=== PATIENT | male | born 1950 | race Caucasian/White ===

== ENCOUNTER 2017-07-20 08:39 | Inpatient (IN) | payer MEDICARE, OTHER ==
[~2017-07-20] VITALS: Ht 182.9 cm; Wt 80.4 kg
[2017-07-20] MEDS: ACCU-CHEK COMFORT CURVE STRIP VI SCH ×5 (00:15→21:00)
[~2017-07-20 08:39] MED LIST: BUPR150T6 PO; CLOP75TA28 PO; DIVA250T51 PO; FAM20T PO; FENO160T8 PO; LOSA50TA6 PO; METO-158 PO; MIRT30TA PO; QUET100T46 PO
[2017-07-20 10:43] LABS: Eosinophils # (auto) 0 uL; Hemoglobin 15.7 g/dL (13.5-17.5); Lymphocytes # (auto) 1.7 uL; Neutrophils % (auto) 80.6 % (37.0-80.0); Nucleated Red Blood Cells % 0.1 %
[2017-07-20 10:55] LABS: Basophils # (auto) 0.1 uL; Basophils % (auto) 0.5 % (0.0-2.0); Eosinophils % (auto) 0.2 % (0.0-7.0); Hematocrit 50.1 % (41.0-53.0); Lymphocytes % (auto) 12.1 % (10.0-50.0); Mean Corpuscular Hemoglobin 28.3 pg (28.0-32.0); Mean Corpuscular Hgb Conc. 31.4 g/dL (32.0-36.0); Mean Corpuscular Volume 90.1 fL (80.0-100.0); Mean Platelet Volume 8.2 fL (6.9-10.8); Monocytes % (auto) 6.6 % (0.0-12.0); Neutrophils # (auto) 11.6 uL; Platelet Count (auto) 364 10^3/uL (140-450); Red Cell Distribution Width 15.5 % (11.8-14.3); White Blood Cell 14.4 10^3/uL (4.4-10.8)
[2017-07-20] MEDS ORDERED: SODIUM CHLORIDE 0.9% 1,000 ML IVB ONE (11:00)
[2017-07-20 11:06] LABS: BUN/Creatinine Ratio 21.7; Bilirubin, Total 0.7 mg/dL (0.2-1.0); Calcium 9.7 mg/dL (8.5-10.1); Magnesium 2.3 mg/dL (1.6-2.6); Potassium 5.5 mmol/L (3.5-5.1); Total Protein 7.6 g/dL (6.4-8.2)
[2017-07-20 11:25] LABS: INR 1.05 (0.9-1.15); Partial Thromboplastin Time 25.2 sec (22.64-33.71); Prothrombin Time 11.4 sec (9.37-12.3)
[2017-07-20] MEDS ORDERED: PROMETHAZINE HCL 25 MG/ML 1ML IV ONE ×2 (12:45→15:15)
[2017-07-20] MEDS ORDERED: InsuLIN REG 1unit/0.01ml Soln (100units/ml) IV ONE (14:45)
[2017-07-20] MEDS ORDERED: PROMETHAZINE HCL 25 MG/ML 1ML ONE (14:45)
[2017-07-20] MEDS ORDERED: DILTIAZEM HCL 25 MG/5 ML VIAL IV ONE (15:15)
[2017-07-20] MEDS ORDERED: SODIUM CHLORIDE 0.9% 1,000 ML IV ONE (15:30)
[2017-07-20] MEDS ORDERED: SODIUM BICARBONATE 8.4% INJ 50ML SYRINGE ONE (15:45)
[2017-07-20] MEDS ORDERED: InsuLIN REG 1unit/0.01ml Soln (100units/ml) ONE (15:50)
[2017-07-20] MEDS: InsuLIN R (HUMAN) 100 UNITS in SODIUM CHL 0.9% 99 ML IV SCH ×3 (15:56→22:03)
[2017-07-20] MEDS ORDERED: VANCOMYCIN PER PHARMACY 0 MG IV SCH (16:00)
[2017-07-20] MEDS ORDERED: cefTRIAXone 1GM/50ML D5W 50 ML IV ONE ×2 (16:00→17:14)
[2017-07-20] MEDS: AMIODARONE HCL 150 MG in D5W 5% 100 ML IV ONE ×2 (16:00→16:21)
[2017-07-20] MEDS ORDERED: SODIUM BICARBONATE 8.4 % INJ 50ML VIAL IV ONE (16:00)
[2017-07-20] MEDS ORDERED: DEXTROSE (50%) 50ML SYRG IV PRN (16:00)
[2017-07-20] MEDS: AMIODARONE HCL 900 MG in DEXTROSE 500 ML IV SCH ×2 (16:06→20:00)
[2017-07-20] MEDS ORDERED: LORazepam 0.5 MG TAB PO PRN (16:15)
[2017-07-20] MEDS ORDERED: ONDANSETRON HCL 4 MG/2 ML VIAL IV PRN (16:15)
[2017-07-20] MEDS ORDERED: ACETAMINOPHEN 325 MG TAB PO PRN (16:15)
[2017-07-20] MEDS ORDERED: ALUM & MAG HYDROX-SIMETH LIQ(MAALOX) 30 ML PO ONE (16:15)
[2017-07-20] MEDS ORDERED: NITROGLYCERIN 0.4 MG SL TAB SL PRN ×2 (16:15)
[2017-07-20] MEDS ORDERED: MORPHINE SULFATE 10 MG/ML INJ 1ML SDV IV PRN ×2 (16:15)
[2017-07-20] MEDS ORDERED: ZOLPIDEM TARTRATE 5 MG TAB PO PRN (16:15)
[2017-07-20] MEDS: SODIUM CHLORIDE 0.9% 1,000 ML IV SCH ×3 (16:20→22:18)
[2017-07-20] MEDS ORDERED: DOCUSATE SOD 100 MG CAP PO ONE (16:45)
[2017-07-20] MEDS ORDERED: METOPROLOL TARTRATE 50 MG TAB PO ONE (16:45)
[2017-07-20] MEDS ORDERED: LOSARTAN POTASSIUM 50 MG TAB PO ONE (16:45)
[2017-07-20] MEDS ORDERED: MIRTAZAPINE 30 MG TAB PO ONE (16:45)
[2017-07-20] MEDS ORDERED: QUEtiapine FUMARATE 100 MG TAB PO ONE (16:45)
[2017-07-20] MEDS ORDERED: ASPirin-EC 81 mg tab PO ONE (16:45)
[2017-07-20 16:49] LABS: Urine Bilirubin Negative (Negative); Urine Blood Negative /uL (Negative); Urine Color Yellow (Yellow); Urine Glucose 4+ mg/dL (Normal); Urine Hyaline Cast FEW /lpf (0 - 2); Urine Ketone 3+ (Negative); Urine Nitrite Negative (Negative); Urine RBC <1 /hpf (0 - 3); Urine Squamous Epithelial Cell FEW /hpf (<5); Urine Urobilinogen Normal (Negative)
[2017-07-20 16:58] LABS: Allen Test No; Base Excess -14.1 mmol/L (-2.0-2.0); Blood 02Sat 95.6 % (96-100); Blood COHb 0.5 % (0.5-1.5); Blood MetHb 0.2 % (0.0-1.5); HCO3 10.4 mmol/L (22-26.0); HHb 4.4 % (0.0-5.0); MODE ROOM AIR; O2Hb 94.9 % (94.0-97.0); PCO2 22.8 mmHg (35.0-45.0); PCO2(T) 22.8 mmHg (35.0-45.0); PO2 88.6 mmHg (80.0-100.0); PO2(T) 88.6 mmHg (80.0-100.0); Sample Type Arterial; pH 7.279 (7.350-7.450)
[2017-07-20] MEDS ORDERED: VANCOMYCIN 1,500 MG in D5W 5% 250 ML IV ONE (17:00)
[2017-07-20 17:29] LABS: Lactic Acid w/Reflex 4.2 mmol/L (0.4-2.0)
[2017-07-20 17:57] LABS: REFLEX LACTIC ACID YES OR NO NO
[2017-07-20] MEDS ORDERED: AMIODARONE HCL 150 MG in D5W 5% 100 ML IV ONE (19:00)
[2017-07-20] MEDS ORDERED: SODIUM CHLORIDE 0.9% 1,000 ML IV SCH (19:56)
[2017-07-20 19:59] LABS: BUN/Creatinine Ratio 22.1; Calcium 8.9 mg/dL (8.5-10.1); Potassium 4.6 mmol/L (3.5-5.1)
[2017-07-20 20:28] LABS: Lactic Acid w/Reflex 2.5 mmol/L (0.4-2.0)
[2017-07-20] MEDS: buPROPion HCL 75 MG TAB PO SCH (20:45)
[2017-07-20 21:02] LABS: REFLEX LACTIC ACID YES OR NO NO
[2017-07-20] MEDS ORDERED: ATORVASTATIN 20 MG TAB PO SCH (22:00)
[2017-07-20] MEDS ORDERED: AMIODARONE HCL 900 MG in DEXTROSE 500 ML IV SCH (22:06)
[2017-07-20] MEDS: ATORVASTATIN 20 MG TAB PO SCH (22:17)
[2017-07-20] MEDS: METOPROLOL TARTRATE 50 MG TAB PO SCH (22:17)
[2017-07-20] MEDS: VALPROATE SOD 250 MG/5 ML ORAL SOLN PO SCH (22:17)
[2017-07-20] MEDS: MIRTAZAPINE 30 MG TAB PO SCH (22:18)
[2017-07-20] MEDS: QUEtiapine FUMARATE 100 MG TAB PO SCH (22:18)
[2017-07-21] MEDS: InsuLIN R (HUMAN) 100 UNITS in SODIUM CHL 0.9% 99 ML IV SCH ×2 (00:23→03:35)
[2017-07-21] MEDS: ACCU-CHEK COMFORT CURVE STRIP VI SCH ×11 (00:29→22:17)
[2017-07-21 04:47] LABS: Basophils # (auto) 0.2 uL; Basophils % (auto) 1.2 % (0.0-2.0); Eosinophils # (auto) 0.1 uL; Eosinophils % (auto) 0.5 % (0.0-7.0); Hematocrit 36.8 % (41.0-53.0); Lymphocytes # (auto) 2.9 uL; Mean Corpuscular Hgb Conc. 32.6 g/dL (32.0-36.0); Mean Corpuscular Volume 85.9 fL (80.0-100.0); Mean Platelet Volume 7.6 fL (6.9-10.8); Monocytes # (auto) 1.7 uL; Neutrophils # (auto) 12.3 uL; Neutrophils % (auto) 71.3 % (37.0-80.0); Platelet Count (auto) 236 10^3/uL (140-450); Red Cell Distribution Width 14.6 % (11.8-14.3); White Blood Cell 17.3 10^3/uL (4.4-10.8)
[2017-07-21] MEDS: SODIUM CHLORIDE 0.9% 1,000 ML IV SCH ×3 (04:54→18:04)
[2017-07-21 05:22] LABS: Albumin 3.1 g/dL (3.4-5.0); Bilirubin, Total 0.4 mg/dL (0.2-1.0); Calcium 8.3 mg/dL (8.5-10.1); Magnesium 2.1 mg/dL (1.6-2.6); Potassium 4.1 mmol/L (3.5-5.1); Total Protein 5.9 g/dL (6.4-8.2)
[2017-07-21] MEDS: QUEtiapine FUMARATE 100 MG TAB PO SCH ×3 (06:00→21:18)
[2017-07-21] MEDS: buPROPion HCL 75 MG TAB PO SCH ×2 (08:10→19:00)
[2017-07-21] MEDS: DOCUSATE SOD 100 MG CAP PO SCH (09:00)
[2017-07-21] MEDS: LOSARTAN POTASSIUM 50 MG TAB PO SCH (09:00)
[2017-07-21] MEDS: VALPROATE SOD 250 MG/5 ML ORAL SOLN PO SCH ×2 (09:00→21:17)
[2017-07-21] MEDS: FENOFIBRATE 160 MG PO SCH (09:01)
[2017-07-21] MEDS: cefTRIAXone 1GM/50ML D5W 50 ML IV SCH (09:07)
[2017-07-21] MEDS: METOPROLOL TARTRATE 50 MG TAB PO SCH ×2 (09:56→21:17)
[2017-07-21] MEDS: CLOPIDOGREL BISULFATE 75 MG TAB PO SCH (09:56)
[2017-07-21] MEDS: MIRTAZAPINE 30 MG TAB PO SCH ×2 (09:56→21:18)
[2017-07-21] MEDS ORDERED: ASPirin-EC 81 mg tab PO SCH (10:00)
[2017-07-21] MEDS ORDERED: CLOPIDOGREL BISULFATE 75 MG TAB PO SCH (10:00)
[2017-07-21] MEDS ORDERED: PATIENTS OWN MEDICATION PO SCH ×2 (10:00)
[2017-07-21] MEDS ORDERED: ASPirin 81 mg TAB PO SCH (10:00)
[2017-07-21] MEDS ORDERED: INSULIN DETEMIR(LEVEMIR) 1unit/0.01ml Soln (100units/ml) SC ONE (11:15)
[2017-07-21 11:20] LABS: Calcium 8.2 mg/dL (8.5-10.1); Potassium 3.9 mmol/L (3.5-5.1)
[2017-07-21] MEDS ORDERED: InsuLIN REG 1unit/0.01ml Soln (100units/ml) SC ONE (11:30)
[2017-07-21] MEDS ORDERED: ACCU-CHEK COMFORT CURVE STRIP VI ONE (11:30)
[2017-07-21] MEDS: InsuLIN REG 1unit/0.01ml Soln (100units/ml) SC SCH ×3 (11:30→22:17)
[2017-07-21] MEDS ORDERED: ENOXAPARIN SOD 80 MG/0.8ML SYRINGE SC ONE (12:15)
[2017-07-21] MEDS ORDERED: ASPirin 81 mg TAB PO ONE (12:30)
[2017-07-21] MEDS ORDERED: CLOPIDOGREL BISULFATE 75 MG TAB PO ONE (12:30)
[2017-07-21] MEDS: Boost Glucose Control 8 Ounces PO SCH ×2 (13:00→18:19)
[2017-07-21] MEDS: ATORVASTATIN 20 MG TAB PO SCH (21:17)
[2017-07-21] MEDS: INSULIN DETEMIR(LEVEMIR) 1unit/0.01ml Soln (100units/ml) SC SCH (22:17)
[2017-07-22] VITALS (10 sets, daily range): BP systolic 144–178; BP diastolic 70–93
[2017-07-22] MEDS: SODIUM CHLORIDE 0.9% 1,000 ML IV SCH ×2 (00:36→06:55)
[2017-07-22] MEDS: buPROPion HCL 75 MG TAB PO SCH ×2 (06:32→18:02)
[2017-07-22] MEDS: QUEtiapine FUMARATE 100 MG TAB PO SCH ×3 (06:32→21:37)
[2017-07-22] MEDS: ACCU-CHEK COMFORT CURVE STRIP VI SCH ×4 (06:52→22:00)
[2017-07-22] MEDS: InsuLIN REG 1unit/0.01ml Soln (100units/ml) SC SCH ×3 (06:53→22:00)
[2017-07-22] MEDS ORDERED: IOHEXOL 350 MG/ML 100ML IJ ONE (07:27)
[2017-07-22] MEDS: Boost Glucose Control 8 Ounces PO SCH ×3 (08:00→17:42)
[2017-07-22 08:02] LABS: Basophils # (auto) 0 uL; Basophils % (auto) 0.6 % (0.0-2.0); Eosinophils # (auto) 0.2 uL; Eosinophils % (auto) 2.5 % (0.0-7.0); Hemoglobin 12.1 g/dL (13.5-17.5); Lymphocytes # (auto) 1.5 uL; Mean Corpuscular Hemoglobin 29.1 pg (28.0-32.0); Mean Corpuscular Hgb Conc. 33.7 g/dL (32.0-36.0); Mean Corpuscular Volume 86.3 fL (80.0-100.0); Mean Platelet Volume 7.6 fL (6.9-10.8); Monocytes # (auto) 0.7 uL; Monocytes % (auto) 8.3 % (0.0-12.0); Neutrophils # (auto) 5.8 uL; Neutrophils % (auto) 70.6 % (37.0-80.0); Nucleated Red Blood Cells % 0.1 %; Platelet Count (auto) 177 10^3/uL (140-450); Red Cell Distribution Width 14.9 % (11.8-14.3); White Blood Cell 8.2 10^3/uL (4.4-10.8)
[2017-07-22] MEDS ORDERED: LIDOCAINE 2%HCL (LOCAL ANESTH.) INJ 20ML MDV ONE (08:06)
[2017-07-22 08:21] LABS: Albumin 2.7 g/dL (3.4-5.0); BUN/Creatinine Ratio 22.6; Bilirubin, Total 0.3 mg/dL (0.2-1.0); Calcium 8.2 mg/dL (8.5-10.1); Total Protein 5.6 g/dL (6.4-8.2)
[2017-07-22] MEDS ORDERED: ANGIOMAX 250 MG VIAL IV ONE (08:30)
[2017-07-22] MEDS ORDERED: fentaNYL CITRATE 100 MCG/2 ML VL ONE (08:30)
[2017-07-22] MEDS ORDERED: SODIUM CHL 0.9% 50 ML ONE (08:31)
[2017-07-22] MEDS ORDERED: MIDAZOLAM HCL 1MG/1ML-2 ML VIAL ONE (08:31)
[2017-07-22] MEDS ORDERED: NITROGLYCERIN 5MG/ML 10ML VIAL IV ONE (08:36)
[2017-07-22] MEDS: cefTRIAXone 1GM/50ML D5W 50 ML IV SCH (08:42)
[2017-07-22] MEDS ORDERED: ASPirin 325 MG TAB ONE (09:37)
[2017-07-22] MEDS ORDERED: ASPirin 325 MG TAB PO ONE (09:45)
[2017-07-22] MEDS: DOCUSATE SOD 100 MG CAP PO SCH (10:00)
[2017-07-22] MEDS ORDERED: ASPirin 81 mg TAB PO SCH (10:00)
[2017-07-22] MEDS: FENOFIBRATE 160 MG PO SCH (10:00)
[2017-07-22] MEDS: VALPROATE SOD 250 MG/5 ML ORAL SOLN PO SCH ×2 (10:54→21:37)
[2017-07-22] MEDS: METOPROLOL TARTRATE 50 MG TAB PO SCH ×2 (10:54→21:36)
[2017-07-22] MEDS: LOSARTAN POTASSIUM 50 MG TAB PO SCH (10:54)
[2017-07-22] MEDS: CLOPIDOGREL BISULFATE 75 MG TAB PO SCH (10:55)
[2017-07-22] MEDS: MIRTAZAPINE 30 MG TAB PO SCH ×2 (10:55→21:37)
[2017-07-22] MEDS ORDERED: SODIUM CHLORIDE 0.9% 1,000 ML IV SCH (11:54)
[2017-07-22] MEDS ORDERED: DEXTROSE (50%) 50ML SYRG IV PRN (12:00)
[2017-07-22] MEDS: ATORVASTATIN 20 MG TAB PO SCH (21:36)
[2017-07-22] MEDS: INSULIN DETEMIR(LEVEMIR) 1unit/0.01ml Soln (100units/ml) SC SCH (22:00)
== END 2017-07-22 23:38 | disposition short-term general hospital (02) | DRG 853 ==
LOC: EDBD 08:39 → ER 08:39 → OVERFLOW 08:40 → TELE-CENTR 07-22 04:15
PROVIDERS: ADMIT Internal Medicine; ATTEND Internal Medicine
PROC: 02703ZZ Dilation of Coronary Artery, One Artery, Percutaneous Approach (ICD-10-PCS; principal; 2017-07-22)
PROC: 4A023N7 Measurement of Cardiac Sampling and Pressure, Left Heart, Percutaneous Approach (ICD-10-PCS; 2017-07-22)
PROC: B2111ZZ Fluoroscopy of Multiple Coronary Arteries using Low Osmolar Contrast (ICD-10-PCS; 2017-07-22)
DX: A41.9 Sepsis, unspecified organism (principal); I21.4 Non-ST elevation (NSTEMI) myocardial infarction; N17.0 Acute kidney failure with tubular necrosis; E10.10 Type 1 diabetes mellitus with ketoacidosis without coma; E44.0 Moderate protein-calorie malnutrition; E10.21 Type 1 diabetes mellitus with diabetic nephropathy; I48.91 Unspecified atrial fibrillation; G92 Toxic encephalopathy; I48.92 Unspecified atrial flutter; E87.5 Hyperkalemia; N18.3 Chronic kidney disease, stage 3 (moderate); F31.9 Bipolar disorder, unspecified; I12.9 Hypertensive chronic kidney disease with stage 1 through stage 4 chronic kidney disease, or unspecified chronic kidney disease; M19.90 Unspecified osteoarthritis, unspecified site; E10.22 Type 1 diabetes mellitus with diabetic chronic kidney disease; E88.09 Other disorders of plasma-protein metabolism, not elsewhere classified; J44.9 Chronic obstructive pulmonary disease, unspecified; I25.10 Atherosclerotic heart disease of native coronary artery without angina pectoris; E78.5 Hyperlipidemia, unspecified; K21.9 Gastro-esophageal reflux disease without esophagitis; Z88.1 Allergy status to other antibiotic agents; Z88.8 Allergy status to other drugs, medicaments and biological substances; Z79.02 Long term (current) use of antithrombotics/antiplatelets; Z79.899 Other long term (current) drug therapy; I25.2 Old myocardial infarction; Z90.49 Acquired absence of other specified parts of digestive tract; Z95.5 Presence of coronary angioplasty implant and graft; Z68.24 Body mass index [BMI] 24.0-24.9, adult
CPT/HCPCS: 36415; 36600; 51702; 70450; 71020; 80048; 80053; 80061; 80307; 81001; 82010; 82805; 82962; 83036; 83605; 83735; 83930; 84100; 84443; 84484; 85025; 85610; 85730; 86850; 86900; 86901; 87040; 87086; 92920; 92924; 93005; 93458; 94761; 96361; 96365; 96366; 96372; 96375; 96376; 99152; 99153; C1887; G0378; J0696; J1815; J2250; J3490; J7060

== ENCOUNTER 2018-03-20 09:00 | Emergency (ER) | payer MEDICARE, OTHER ==
[~2018-03-20] VITALS: Ht 180.3 cm; Wt 88.5 kg
[2018-03-20 09:32] LABS: Basophils # (auto) 0.1 uL; Basophils % (auto) 1.1 % (0.0-2.0); Eosinophils # (auto) 0.3 uL; Eosinophils % (auto) 3.7 % (0.0-7.0); Hematocrit 37.9 % (41.0-53.0); Hemoglobin 12.4 g/dL (13.5-17.5); Lymphocytes # (auto) 1.1 uL; Lymphocytes % (auto) 15.4 % (10.0-50.0); Mean Corpuscular Hemoglobin 27.5 pg (28.0-32.0); Mean Corpuscular Hgb Conc. 32.6 g/dL (32.0-36.0); Mean Corpuscular Volume 84.3 fL (80.0-100.0); Monocytes # (auto) 0.6 uL; Monocytes % (auto) 7.9 % (0.0-12.0); Neutrophils % (auto) 71.9 % (37.0-80.0); Nucleated Red Blood Cells % 0.1 %; Platelet Count (auto) 213 10^3/uL (140-450); Red Cell Distribution Width 16.6 % (11.8-14.3)
[2018-03-20 09:53] LABS: Alanine Aminotransferase 18 U/L (16-61); Albumin 3.1 g/dL (3.4-5.0); Anion Gap 8 (5-15); Aspartate Aminotransferase 22 U/L (15-37); BUN/Creatinine Ratio 17.9; Blood Urea Nitrogen 24 mg/dL (7-18); Calcium 8.1 mg/dL (8.5-10.1); Carbon Dioxide 23 mmol/L (21-32); Chloride 112 mmol/L (98-107); GFR African American 68 mL/min; GFR Non-African American 56 mL/min; Glucose 195 mg/dL (74-106); Potassium 3.9 mmol/L (3.5-5.1); Sodium 143 mmol/L (136-145)
[2018-03-20 10:16] LABS: Alkaline Phosphatase 49 U/L (45-117); Bilirubin, Total 0.2 mg/dL (0.2-1.0); Total Protein 6.3 g/dL (6.4-8.2)
[2018-03-20 10:18] VITALS: BP 148/77
== END 2018-03-20 11:28 | disposition home or self-care (01) ==
LOC: EDBD 09:00 → ER 09:04
DX: E11.9 Type 2 diabetes mellitus without complications (principal); I10 Essential (primary) hypertension; Z79.899 Other long term (current) drug therapy; Z88.8 Allergy status to other drugs, medicaments and biological substances; J45.909 Unspecified asthma, uncomplicated; I25.810 Atherosclerosis of coronary artery bypass graft(s) without angina pectoris; E78.5 Hyperlipidemia, unspecified; Z90.49 Acquired absence of other specified parts of digestive tract; Z98.61 Coronary angioplasty status
CPT/HCPCS: 36415; 80053; 85025; 93005

== ENCOUNTER 2020-01-26 23:20 | Emergency (ER) | payer MEDICARE, OTHER ==
[~2020-01-26] VITALS: Ht 180.3 cm; Wt 77.1 kg
[~2020-01-26 23:20] MED LIST changes: +LOSA-69 PO; -LOSA50TA6 PO
[2020-01-27 00:49] LABS: Basophils # (auto) 0.1 10 ^3/uL (0-0.2); Basophils % (auto) 1.2 % (0.0-2.0); Eosinophils # (auto) 0.2 10 ^3/uL (0-0.8); Hematocrit 43.7 % (41.0-53.0); Hemoglobin 14.2 g/dL (13.5-17.5); Lymphocytes # (auto) 1.1 10 ^3/uL (0.4-5.4); Lymphocytes % (auto) 14.7 % (10.0-50.0); Mean Corpuscular Hemoglobin 28.2 pg (28.0-32.0); Mean Corpuscular Hgb Conc. 32.4 g/dL (32.0-36.0); Mean Corpuscular Volume 86.9 fL (80.0-100.0); Monocytes # (auto) 0.7 10 ^3/uL (0-1.3); Monocytes % (auto) 9.3 % (0.0-12.0); Neutrophils # (auto) 5.2 10 ^3/uL (1.6-8.6); Neutrophils % (auto) 71.8 % (37.0-80.0); Nucleated Red Blood Cells % 0.1 %; Platelet Count (auto) 250 10^3/uL (140-450); Red Blood Cells 5.02 10^6/uL (4.5-5.90); White Blood Cell 7.2 10^3/uL (4.4-10.8)
[2020-01-27 01:06] LABS: Albumin 3.5 g/dL (3.4-5.0); BUN/Creatinine Ratio 15.8; Calcium 8.7 mg/dL (8.5-10.1); Potassium 3.8 mmol/L (3.5-5.1)
[2020-01-27 01:09] LABS: Bilirubin, Total 0.3 mg/dL (0.2-1.0); Total Protein 6.9 g/dL (6.4-8.2)
[2020-01-27 02:00] VITALS: BP 141/65
== END 2020-01-27 02:59 | disposition home or self-care (01) ==
LOC: EDSEX 23:20 → EDBD 23:20 → ER 23:23
DX: E11.65 Type 2 diabetes mellitus with hyperglycemia (principal); I10 Essential (primary) hypertension; J45.909 Unspecified asthma, uncomplicated; E78.5 Hyperlipidemia, unspecified; Z79.899 Other long term (current) drug therapy; Z88.2 Allergy status to sulfonamides
CPT/HCPCS: 36415; 80053; 82962; 85025

== ENCOUNTER 2020-12-12 19:00 | Emergency (ER) | payer MEDICARE, OTHER ==
[~2020-12-12] VITALS: Ht 175.3 cm; Wt 68.9 kg
[~2020-12-12 19:00] MED LIST changes: -BUPR150T6 PO; +BUPR150T7 PO; +DIVA250T4 PO; -DIVA250T51 PO; -FAM20T PO; +FAMO20TA10 PO; +MIRT-66 PO; -MIRT30TA PO
[2020-12-12] MEDS ORDERED: ONDANSETRON ODT 4 MG TAB PO ONE (19:15)
[2020-12-12] MEDS ORDERED: HYDROcodone-ACET 5/325MG TAB PO ONE (19:15)
[2020-12-12 20:14] LABS: Basophils # (auto) 0 10 ^3/uL (0-0.2); Basophils % (auto) 0.6 % (0.0-2.0); Eosinophils # (auto) 0.2 10 ^3/uL (0-0.8); Eosinophils % (auto) 3.1 % (0.0-7.0); Hematocrit 42.1 % (41.0-53.0); Hemoglobin 14.3 g/dL (13.5-17.5); Lymphocytes # (auto) 1.1 10 ^3/uL (0.4-5.4); Mean Corpuscular Hemoglobin 28.9 pg (28.0-32.0); Mean Corpuscular Hgb Conc. 33.9 g/dL (32.0-36.0); Mean Corpuscular Volume 85.3 fL (80.0-100.0); Monocytes # (auto) 0.5 10 ^3/uL (0-1.3); Monocytes % (auto) 6.9 % (0.0-12.0); Neutrophils # (auto) 5.5 10 ^3/uL (1.6-8.6); Neutrophils % (auto) 74.4 % (37.0-80.0); Nucleated Red Blood Cells % 0.2 %; Platelet Count (auto) 273 10^3/uL (140-450); Red Blood Cells 4.94 10^6/uL (4.5-5.90); Red Cell Distribution Width 14.1 % (11.8-14.3); White Blood Cell 7.4 10^3/uL (4.4-10.8)
[2020-12-12 20:38] LABS: Albumin 3.8 g/dL (3.4-5.0); Calcium 9.5 mg/dL (8.5-10.1); Potassium 4.1 mmol/L (3.5-5.1)
[2020-12-12 20:41] LABS: Bilirubin, Total 0.4 mg/dL (0.2-1.0); INR 1.14 (0.9-1.15); Partial Thromboplastin Time 36.5 sec (23.0-31.2); Total Protein 7.4 g/dL (6.4-8.2)
[2020-12-13 00:59] VITALS: BP 146/97
== END 2020-12-13 01:23 | disposition home or self-care (01) ==
LOC: ER 19:00 → EDBD 19:00 → ER 12-13 01:23
DX: S76.911A Strain of unspecified muscles, fascia and tendons at thigh level, right thigh, initial encounter (principal); E11.9 Type 2 diabetes mellitus without complications; I10 Essential (primary) hypertension; E78.5 Hyperlipidemia, unspecified; Z90.49 Acquired absence of other specified parts of digestive tract; Z79.899 Other long term (current) drug therapy; Z88.2 Allergy status to sulfonamides; X58.XXXA Exposure to other specified factors, initial encounter; Y93.89 Activity, other specified; Y92.89 Other specified places as the place of occurrence of the external cause; Y99.8 Other external cause status
CPT/HCPCS: 36415; 73502; 73700; 80053; 82010; 85025; 85610; 85730; 99285; Q0162

== ENCOUNTER 2021-12-16 20:47 | Emergency (ER) | payer MEDICARE, OTHER ==
[~2021-12-16] VITALS: Ht 180.3 cm; Wt 65.8 kg
[~2021-12-16 20:47] MED LIST changes: +BUPR150T18 PO; -BUPR150T7 PO; -QUET100T46 PO; +QUET100T47 PO
[2021-12-16] MEDS ORDERED: ONDANSETRON HCL 4 MG/2 ML VIAL IV ONE (21:15)
[2021-12-16] MEDS ORDERED: MORPHINE SULFATE 4 MG/ML SYR/VIAL IV ONE (21:15)
[2021-12-16 22:50] LABS: Basophils # (auto) 0.1 10 ^3/uL (0-0.2); Basophils % (auto) 1.2 % (0.0-2.0); Eosinophils # (auto) 0 10 ^3/uL (0-0.8); Eosinophils % (auto) 0.8 % (0.0-7.0); Hematocrit 39.7 % (41.0-53.0); Hemoglobin 13.3 g/dL (13.5-17.5); Lymphocytes # (auto) 0.6 10 ^3/uL (0.4-5.4); Lymphocytes % (auto) 10.4 % (10.0-50.0); Mean Corpuscular Hemoglobin 28.7 pg (28.0-32.0); Mean Corpuscular Hgb Conc. 33.6 g/dL (32.0-36.0); Mean Corpuscular Volume 85.3 fL (80.0-100.0); Monocytes # (auto) 0.3 10 ^3/uL (0-1.3); Monocytes % (auto) 5.1 % (0.0-12.0); Neutrophils % (auto) 82.5 % (37.0-80.0); Nucleated Red Blood Cells % 0.1 %; Red Blood Cells 4.65 10^6/uL (4.5-5.90); Red Cell Distribution Width 14.9 % (11.8-14.3); White Blood Cell 6.1 10^3/uL (4.4-10.8)
[2021-12-16 23:42] LABS: Calcium 9.7 mg/dL (8.5-10.1); Potassium 4.3 mmol/L (3.5-5.1)
[2021-12-16 23:44] LABS: BUN/Creatinine Ratio 13.8
[2021-12-16 23:49] LABS: Bilirubin, Total 0.7 mg/dL (0.2-1.0); Total Protein 7.6 g/dL (6.4-8.2)
[2021-12-17 01:54] LABS: Urine WBC None Seen /hpf (0 - 3)
[2021-12-17 02:06] LABS: Urine Bacteria NONE SEEN /hpf (None Seen); Urine Blood TRACE /uL (Negative); Urine Hyaline Cast FEW /lpf (0 - 2); Urine Specific Gravity 1.019 (1.001-1.035)
[2021-12-17] MEDS ORDERED: MORPHINE SULFATE 4 MG/ML SYR/VIAL IV ONE (04:15)
[2021-12-17] MEDS ORDERED: ONDANSETRON HCL 4 MG/2 ML VIAL IM ONE (04:15)
[2021-12-17] MEDS ORDERED: METOCLOPRAMIDE HCL 5MG/ml INJ 2ml VIAL IV ONE (05:45)
[2021-12-17] MEDS ORDERED: SODIUM CHLORIDE 0.9% 500 ML IV ONE ×2 (08:30→12:00)
[2021-12-17] MEDS ORDERED: PROCHLORPERAZINE EDISYLATE 5 MG/ML 2ML VIAL IV ONE (12:00)
[2021-12-17] MEDS ORDERED: InsuLIN REG 1unit/0.01ml Soln (100units/ml) IV ONE (12:00)
[2021-12-17] MEDS ORDERED: InsuLIN REG 1unit/0.01ml Soln (100units/ml) SC ONE (13:45)
[2021-12-17 16:30] VITALS: BP 141/63
== END 2021-12-17 16:44 | disposition home or self-care (01) ==
LOC: ER 20:47 → EDBD 20:47 → ER 12-17 16:35
DX: R10.12 Left upper quadrant pain (principal); R10.11 Right upper quadrant pain; R11.2 Nausea with vomiting, unspecified; I10 Essential (primary) hypertension; I25.10 Atherosclerotic heart disease of native coronary artery without angina pectoris; J44.9 Chronic obstructive pulmonary disease, unspecified; E11.9 Type 2 diabetes mellitus without complications; Z95.1 Presence of aortocoronary bypass graft; Z90.49 Acquired absence of other specified parts of digestive tract; Z90.89 Acquired absence of other organs; Z79.899 Other long term (current) drug therapy; Z88.2 Allergy status to sulfonamides; Z88.8 Allergy status to other drugs, medicaments and biological substances
CPT/HCPCS: 36415; 71045; 74176; 80053; 81001; 82962; 83605; 83690; 84484; 85025; J1815; J2405

== ENCOUNTER 2021-12-18 21:02 | Inpatient (IN) | payer MEDICARE, OTHER ==
[~2021-12-18] VITALS: Ht 180.3 cm; Wt 62.7 kg
[2021-12-18 22:41] LABS: Basophils # (auto) 0.2 10 ^3/uL (0-0.2); Basophils % (auto) 2.3 % (0.0-2.0); Eosinophils # (auto) 0.1 10 ^3/uL (0-0.8); Eosinophils % (auto) 1.7 % (0.0-7.0); Hematocrit 38.8 % (41.0-53.0); Hemoglobin 13.1 g/dL (13.5-17.5); Lymphocytes # (auto) 0.9 10 ^3/uL (0.4-5.4); Lymphocytes % (auto) 14.1 % (10.0-50.0); Mean Corpuscular Hemoglobin 28.3 pg (28.0-32.0); Mean Corpuscular Hgb Conc. 33.7 g/dL (32.0-36.0); Monocytes # (auto) 0.5 10 ^3/uL (0-1.3); Monocytes % (auto) 7.1 % (0.0-12.0); Neutrophils % (auto) 74.8 % (37.0-80.0); Red Blood Cells 4.62 10^6/uL (4.5-5.90); Red Cell Distribution Width 14.7 % (11.8-14.3); White Blood Cell 6.7 10^3/uL (4.4-10.8)
[2021-12-18] MEDS ORDERED: ONDANSETRON HCL 4 MG/2 ML VIAL IV ONE (23:00)
[2021-12-18] MEDS ORDERED: LACTATED RINGER'S 1,000 ML IV ONE (23:00)
[2021-12-18 23:03] LABS: Potassium 3.4 mmol/L (3.5-5.1)
[2021-12-18 23:06] LABS: Albumin 3.8 g/dL (3.4-5.0); Calcium 9.4 mg/dL (8.5-10.1)
[2021-12-18 23:18] LABS: Bilirubin, Total 0.5 mg/dL (0.2-1.0); Total Protein 7.2 g/dL (6.4-8.2)
[2021-12-19] VITALS (7 sets, daily range): BP systolic 156–195; BP diastolic 74–90
[2021-12-19] MEDS ORDERED: METOCLOPRAMIDE HCL 5MG/ml INJ 2ml VIAL IV ONE (01:15)
[2021-12-19] MEDS ORDERED: ASPirin 325 MG TAB PO ONE (02:45)
[2021-12-19] MEDS ORDERED: MORPHINE SULFATE INJECTION 2 MG/ML SYRG IV PRN (05:15)
[2021-12-19] MEDS ORDERED: NITROGLYCERIN 0.4 MG SL TAB SL PRN (05:15)
[2021-12-19] MEDS ORDERED: ENOXAPARIN SOD 100 MG/1 ML SYRINGE SC ONE (05:15)
[2021-12-19] MEDS ORDERED: DEXTROSE (50%) 50ML SYRG IV PRN (05:15)
[2021-12-19] MEDS: POTASSIUM CHL 20 Meq TABLET PO ONE (05:45)
[2021-12-19] MEDS: InsuLIN REG 1unit/0.01ml Soln (100units/ml) SC SCH ×4 (05:46→23:48)
[2021-12-19] MEDS: ACCU-CHEK COMFORT CURVE STRIP VI SCH ×4 (05:59→23:47)
[2021-12-19 06:10] LABS: Urine Bacteria FEW /hpf (None Seen); Urine Blood TRACE /uL (Negative); Urine Specific Gravity 1.022 (1.001-1.035); Urine WBC 2 /hpf (0 - 3)
[2021-12-19 06:51] LABS: INR 1.21 (0.9-1.15); Partial Thromboplastin Time 34.7 sec (23.6-33.0)
[2021-12-19] MEDS: METOPROLOL TARTRATE 50 MG TAB PO SCH ×2 (10:00→21:43)
[2021-12-19] MEDS: ENOXAPARIN SOD 40 MG/0.4 ML SYRINGE SC SCH (10:00)
[2021-12-19] MEDS ORDERED: ASPirin 81 mg TAB PO SCH (10:00)
[2021-12-19] MEDS: CLOPIDOGREL BISULFATE 75 MG TAB PO SCH (10:00)
[2021-12-19] MEDS ORDERED: BISO5TAB44 PO (10:55)
[2021-12-19] MEDS ORDERED: POTA10TA51 PO (11:01)
[2021-12-19] MEDS ORDERED: LAMO100T44 PO (11:01)
[2021-12-19] MEDS ORDERED: PANC1CAP PO (11:01)
[2021-12-19] MEDS ORDERED: FLUT1AER6 IN (11:01)
[2021-12-19] MEDS ORDERED: INSU100I4 SC (11:01)
[2021-12-19] MEDS ORDERED: DABI150C5 PO (11:01)
[2021-12-19] MEDS ORDERED: FLUO-126 PO (11:01)
[2021-12-19] MEDS ORDERED: ALBU108A5 IN (11:01)
[2021-12-19] MEDS ORDERED: GABA300C10 PO (11:01)
[2021-12-19] MEDS ORDERED: PANT40TA2 PO (11:04)
[2021-12-19] MEDS ORDERED: FURO20TA3 PO (11:04)
[2021-12-19] MEDS: ONDANSETRON HCL 4 MG/2 ML VIAL IV PRN (20:16)
[2021-12-19] MEDS: FAMOTIDINE 20 MG TAB PO SCH (21:42)
[2021-12-19] MEDS ORDERED: hydrALAZINE HCL 20 MG/ML VL IV ONE (23:30)
[2021-12-20] MEDS ORDERED: cloNIDine HCL 0.1 MG TAB PO ONE (00:45)
[2021-12-20] MEDS: ONDANSETRON HCL 4 MG/2 ML VIAL IV PRN ×3 (04:50→19:15)
[2021-12-20 05:00] VITALS: BP 129/63
[2021-12-20] MEDS: ACCU-CHEK COMFORT CURVE STRIP VI SCH ×3 (05:48→18:14)
[2021-12-20] MEDS: InsuLIN REG 1unit/0.01ml Soln (100units/ml) SC SCH ×3 (05:52→18:14)
[2021-12-20 06:32] LABS: Basophils # (auto) 0.1 10 ^3/uL (0-0.2); Basophils % (auto) 0.9 % (0.0-2.0); Eosinophils # (auto) 0.3 10 ^3/uL (0-0.8); Eosinophils % (auto) 4.2 % (0.0-7.0); Hemoglobin 13.4 g/dL (13.5-17.5); Lymphocytes # (auto) 1.6 10 ^3/uL (0.4-5.4); Lymphocytes % (auto) 24.7 % (10.0-50.0); Mean Corpuscular Hemoglobin 28.5 pg (28.0-32.0); Mean Corpuscular Hgb Conc. 34.3 g/dL (32.0-36.0); Mean Corpuscular Volume 83.3 fL (80.0-100.0); Monocytes # (auto) 0.7 10 ^3/uL (0-1.3); Monocytes % (auto) 10.6 % (0.0-12.0); Neutrophils # (auto) 3.7 10 ^3/uL (1.6-8.6); Neutrophils % (auto) 59.6 % (37.0-80.0); Nucleated Red Blood Cells % 0.1 %; Red Blood Cells 4.68 10^6/uL (4.5-5.90); Red Cell Distribution Width 14.5 % (11.8-14.3); White Blood Cell 6.3 10^3/uL (4.4-10.8)
[2021-12-20 06:47] LABS: Calcium 9.1 mg/dL (8.5-10.1); Potassium 3.3 mmol/L (3.5-5.1)
[2021-12-20] MEDS ORDERED: ADENOSINE 55 MG in GIVE UN-DILUTED 0 ML IV STA (08:01)
[2021-12-20 09:00] VITALS: BP 141/65
[2021-12-20] MEDS: ENOXAPARIN SOD 40 MG/0.4 ML SYRINGE SC SCH (09:26)
[2021-12-20] MEDS: CLOPIDOGREL BISULFATE 75 MG TAB PO SCH (09:26)
[2021-12-20] MEDS: ASPirin 81 mg TAB PO SCH (09:26)
[2021-12-20] MEDS: FAMOTIDINE 20 MG TAB PO SCH ×2 (09:27→21:37)
[2021-12-20] MEDS: METOPROLOL TARTRATE 50 MG TAB PO SCH ×2 (09:28→21:37)
[2021-12-20] MEDS ORDERED: ALBU108A5 IN (09:32)
[2021-12-20] MEDS ORDERED: FLUT1AER6 IN (09:32)
[2021-12-20] MEDS ORDERED: INSU100I4 SC (09:32)
[2021-12-20] MEDS ORDERED: PANC1CAP PO (09:32)
[2021-12-20 13:00] VITALS: BP 144/61
[2021-12-20] MEDS ORDERED: ACETAMINOPHEN 325 MG TAB PO PRN (14:30)
[2021-12-20] MEDS ORDERED: POTASSIUM CHL 20 Meq TABLET PO ONE (14:30)
[2021-12-20] MEDS ORDERED: OMNIPAQUE ORAL SOLN 500ml 12mg/ml PO ONE (14:40)
[2021-12-20 17:00] VITALS: BP 169/67
[2021-12-20] MEDS ORDERED: ERGOCALCIFEROL 50,000 UNIT(1.25MG) CAP PO SCH (18:30)
[2021-12-20] MEDS ORDERED: HYDROcodone-ACET 5/325MG TAB PO PRN (20:45)
[2021-12-20] MEDS ORDERED: cloNIDine HCL 0.1 MG TAB PO PRN (20:45)
[2021-12-20] MEDS: SUCRALFATE 1 GM/10 ML ORAL SUSP PO SCH (21:34)
[2021-12-20] MEDS: PANTOPRAZOLE 40 MG/10 ML VIAL INJ IV SCH (21:36)
[2021-12-20] MEDS: VALPROIC ACID 250 MG/5 ML ORAL SOLN PO SCH (21:37)
[2021-12-20 22:30] VITALS: BP 132/67
[2021-12-21] MEDS: ACCU-CHEK COMFORT CURVE STRIP VI SCH ×5 (00:24→23:41)
[2021-12-21] MEDS: InsuLIN REG 1unit/0.01ml Soln (100units/ml) SC SCH ×5 (00:32→23:47)
[2021-12-21 05:00] VITALS: BP 160/75
[2021-12-21 06:30] LABS: Potassium 4.5 mmol/L (3.5-5.1)
[2021-12-21 06:41] LABS: Albumin 3.4 g/dL (3.4-5.0); BUN/Creatinine Ratio 13.9; Bilirubin, Total 0.8 mg/dL (0.2-1.0); Calcium 9.5 mg/dL (8.5-10.1); Total Protein 6.5 g/dL (6.4-8.2)
[2021-12-21] MEDS: SUCRALFATE 1 GM/10 ML ORAL SUSP PO SCH ×4 (06:41→21:52)
[2021-12-21] MEDS ORDERED: ONDANSETRON HCL 4 MG/2 ML VIAL ONE (08:07)
[2021-12-21] MEDS: PANCREATIC ENZYMES 4200 UNIT CAP PO SCH ×3 (08:14→17:28)
[2021-12-21 08:30] VITALS: BP 169/66
[2021-12-21] MEDS: ONDANSETRON HCL 4 MG/2 ML VIAL IV PRN ×2 (08:31→12:19)
[2021-12-21] MEDS: PANTOPRAZOLE 40 MG/10 ML VIAL INJ IV SCH ×2 (09:15→21:52)
[2021-12-21] MEDS: VALPROIC ACID 250 MG/5 ML ORAL SOLN PO SCH ×2 (09:15→21:51)
[2021-12-21] MEDS: ASPirin 81 mg TAB PO SCH (09:15)
[2021-12-21] MEDS: FAMOTIDINE 20 MG TAB PO SCH ×2 (09:16→21:53)
[2021-12-21] MEDS: CLOPIDOGREL BISULFATE 75 MG TAB PO SCH (09:16)
[2021-12-21] MEDS: ENOXAPARIN SOD 40 MG/0.4 ML SYRINGE SC SCH (09:16)
[2021-12-21] MEDS: METOPROLOL TARTRATE 50 MG TAB PO SCH ×2 (09:18→21:52)
[2021-12-21 12:54] VITALS: BP 194/78
[2021-12-21] MEDS ORDERED: LOSARTAN POTASSIUM 50 MG TAB PO ONE (16:15)
[2021-12-21 16:50] VITALS: BP 105/61
[2021-12-21 22:00] VITALS: BP 127/59
[2021-12-22 05:00] VITALS: BP 110/48
[2021-12-22] MEDS: ACCU-CHEK COMFORT CURVE STRIP VI SCH ×2 (06:10→12:34)
[2021-12-22] MEDS: SUCRALFATE 1 GM/10 ML ORAL SUSP PO SCH ×2 (06:10→12:57)
[2021-12-22] MEDS: InsuLIN REG 1unit/0.01ml Soln (100units/ml) SC SCH ×2 (06:13→12:35)
[2021-12-22 09:00] VITALS: BP 140/74
[2021-12-22] MEDS: ASPirin 81 mg TAB PO SCH (09:32)
[2021-12-22] MEDS: FAMOTIDINE 20 MG TAB PO SCH (09:33)
[2021-12-22] MEDS: CLOPIDOGREL BISULFATE 75 MG TAB PO SCH (09:33)
[2021-12-22] MEDS: PANTOPRAZOLE 40 MG/10 ML VIAL INJ IV SCH (09:33)
[2021-12-22] MEDS: PANCREATIC ENZYMES 4200 UNIT CAP PO SCH ×2 (09:33→12:33)
[2021-12-22] MEDS: ENOXAPARIN SOD 40 MG/0.4 ML SYRINGE SC SCH (09:33)
[2021-12-22] MEDS: VALPROIC ACID 250 MG/5 ML ORAL SOLN PO SCH (09:33)
[2021-12-22] MEDS: METOPROLOL TARTRATE 50 MG TAB PO SCH (09:34)
[2021-12-22] MEDS ORDERED: LOSARTAN POTASSIUM 25 MG TAB PO SCH (10:00)
[2021-12-22] MEDS ORDERED: ERGO1CAP23 PO (10:14)
[2021-12-22 10:47] VITALS: BP 140/74
[2021-12-22 13:00] VITALS: BP 121/66
== END 2021-12-22 16:39 | disposition home or self-care (01) | DRG 391 ==
LOC: EDBD 21:02 → ER 21:04 → TELE 12-19 05:14 → TELE-WESTW 12-19 09:20
PROVIDERS: ADMIT Nurse Practitioner; ATTEND Internal Medicine
DX: K52.9 Noninfective gastroenteritis and colitis, unspecified (principal); I21.A1 Myocardial infarction type 2; E11.9 Type 2 diabetes mellitus without complications; Z66 Do not resuscitate; F31.9 Bipolar disorder, unspecified; I10 Essential (primary) hypertension; E78.5 Hyperlipidemia, unspecified; I25.10 Atherosclerotic heart disease of native coronary artery without angina pectoris; F41.9 Anxiety disorder, unspecified; Z20.822 Contact with and (suspected) exposure to COVID-19; K21.9 Gastro-esophageal reflux disease without esophagitis; M19.90 Unspecified osteoarthritis, unspecified site; J44.9 Chronic obstructive pulmonary disease, unspecified; Z80.1 Family history of malignant neoplasm of trachea, bronchus and lung; I25.2 Old myocardial infarction; Z85.118 Personal history of other malignant neoplasm of bronchus and lung; Z90.49 Acquired absence of other specified parts of digestive tract; Z95.1 Presence of aortocoronary bypass graft; Z95.5 Presence of coronary angioplasty implant and graft; Z88.8 Allergy status to other drugs, medicaments and biological substances; Z88.2 Allergy status to sulfonamides
CPT/HCPCS: 36415; 71045; 74176; 80048; 80053; 81001; 82150; 82306; 82607; 82962; 83036; 83605; 83690; 83735; 83880; 84443; 84484; 85025; 85610; 85730; 86677; 93005; 93306; 96372; 97163; C9113; G0378; J0153; J1815; J2405

== ENCOUNTER 2022-10-10 06:37 | Inpatient (IN) | payer MEDICARE, OTHER ==
[~2022-10-10] VITALS: Ht 185.4 cm; Wt 62.6 kg
[~2022-10-10 06:37] MED LIST changes: +ALBU108A5 IN; +BISO5TAB44 PO; +DABI150C5 PO; -DIVA250T4 PO; +ERGO1CAP23 PO; -FAMO20TA10 PO; +FLUO-126 PO; +FLUT1AER6 IN; +FURO20TA3 PO; +GABA300C10 PO; +INSU100I4 SC; +LAMO100T44 PO; +PANC1CAP PO; +PANT40TA2 PO; +POTA10TA51 PO
[2022-10-10] MEDS ORDERED: SODIUM CHLORIDE 0.9% 500 ML IV ONE (07:15)
[2022-10-10 07:32] LABS: Basophils # (auto) 0.1 10 ^3/uL (0-0.2); Basophils % (auto) 0.5 % (0.0-2.0); Eosinophils # (auto) 0 10 ^3/uL (0-0.8); Monocytes # (auto) 0.5 10 ^3/uL (0-1.3)
[2022-10-10 07:35] LABS: Hematocrit 43.9 % (41.0-53.0); Hemoglobin 13.7 g/dL (13.5-17.5); Lymphocytes # (auto) 0.7 10 ^3/uL (0.4-5.4); Lymphocytes % (auto) 5.7 % (10.0-50.0); Mean Corpuscular Hemoglobin 29.3 pg (28.0-32.0); Mean Corpuscular Hgb Conc. 31.2 g/dL (32.0-36.0); Mean Corpuscular Volume 93.9 fL (80.0-100.0); Monocytes % (auto) 4.2 % (0.0-12.0); Neutrophils # (auto) 10.7 10 ^3/uL (1.6-8.6); Neutrophils % (auto) 89.6 % (37.0-80.0); Red Blood Cells 4.67 10^6/uL (4.5-5.90); Red Cell Distribution Width 15.8 % (11.8-14.3)
[2022-10-10 07:41] LABS: INR 1.09 (0.9-1.15); Partial Thromboplastin Time 29.8 sec (24.6-33.4)
[2022-10-10 07:43] LABS: Albumin 4.3 g/dL (3.4-5.0); Calcium 10.2 mg/dL (8.5-10.1); Magnesium 2.5 mg/dL (1.6-2.6); Potassium 5.3 mmol/L (3.5-5.1)
[2022-10-10 07:51] LABS: BUN/Creatinine Ratio 16.2; Total Protein 7.8 g/dL (6.4-8.2)
[2022-10-10] MEDS ORDERED: InsuLIN REG 1unit/0.01ml Soln (100units/ml) IV ONE ×2 (08:15→14:00)
[2022-10-10] MEDS ORDERED: SODIUM BICARBONATE 8.4 % INJ 50ML VIAL IV ONE (08:15)
[2022-10-10 08:46] LABS: Urine Bacteria NONE SEEN /hpf (None Seen); Urine Blood Negative /uL (Negative); Urine Specific Gravity 1.028 (1.001-1.035); Urine WBC <1 /hpf (0 - 3)
[2022-10-10 17:10] LABS: Albumin 3.4 g/dL (3.4-5.0); BUN/Creatinine Ratio 17.9; Calcium 8.9 mg/dL (8.5-10.1)
[2022-10-10 17:19] LABS: Bilirubin, Total 0.7 mg/dL (0.2-1.0); Total Protein 7.2 g/dL (6.4-8.2)
[2022-10-10] MEDS ORDERED: HYDROcodone-ACET 7.5/325MG TAB PO ONE (18:15)
[2022-10-10] MEDS ORDERED: NITROGLYCERIN 0.4 MG SL TAB SL PRN (18:30)
[2022-10-10] MEDS ORDERED: DOCUSATE SOD 100 MG CAP PO PRN (18:30)
[2022-10-10] MEDS ORDERED: SODIUM CHLORIDE 0.9% 1,000 ML IV ONE (18:30)
[2022-10-10] MEDS ORDERED: MORPHINE SULFATE INJ 2 MG/ml SYRG IV PRN ×2 (18:30)
[2022-10-10] MEDS ORDERED: DEXTROSE (50%) 50ML SYRG IV PRN ×3 (18:30→23:15)
[2022-10-10] MEDS ORDERED: SODIUM CHLORIDE 0.9% 1,000 ML IV SCH ×2 (18:30→19:00)
[2022-10-10] MEDS ORDERED: ERGOCALCIFEROL 50,000 UNIT(1.25MG) CAP PO SCH (18:45)
[2022-10-10] MEDS ORDERED: ASPirin 81 mg TAB PO ONE (19:15)
[2022-10-10] MEDS: ALBUTEROL MEDNEB 2.5 mg/3ml NEB NEB PRN (19:27)
[2022-10-10] MEDS: IPRATROPIUM BROM 0.5 MG/2.5ML INH SOL NEB PRN (19:27)
[2022-10-10 19:29] VITALS: BP 136/64
[2022-10-10] MEDS ORDERED: SODIUM BICARBONATE 50ML VIAL 50 ML in SOD CHL 0.45% 1,000 ML IV ONE (20:30)
[2022-10-10] MEDS ORDERED: FUROSEMIDE 20 MG/2 ML VIAL IV ONE (21:00)
[2022-10-10 21:09] LABS: Creatinine, Urine 31 mg/dL (30.0-125.0); Sodium Urine 51 mmol/L (40-220)
[2022-10-10] MEDS: ONDANSETRON HCL 4 MG/2 ML VIAL IV PRN (21:38)
[2022-10-10] MEDS ORDERED: ACCU-CHEK COMFORT CURVE STRIP VI SCH (22:00)
[2022-10-10] MEDS: DABIGATRAN 75 MG CAP PO SCH (22:00)
[2022-10-10] MEDS ORDERED: InsuLIN REG 1unit/0.01ml Soln (100units/ml) SC SCH (22:00)
[2022-10-10] MEDS: SODIUM CHLORIDE 0.9% 1,000 ML IV SCH (22:24)
[2022-10-10 22:26] LABS: Albumin 3.4 g/dL (3.4-5.0); BUN/Creatinine Ratio 22.9; Calcium 9.4 mg/dL (8.5-10.1); Potassium 4.6 mmol/L (3.5-5.1)
[2022-10-10] MEDS: METOPROLOL TARTRATE 50 MG TAB PO SCH (22:27)
[2022-10-10 22:28] LABS: Bilirubin, Total 0.8 mg/dL (0.2-1.0); Total Protein 7.1 g/dL (6.4-8.2)
[2022-10-10] MEDS: ATORVASTATIN 20 MG TAB PO SCH (22:28)
[2022-10-10] MEDS: QUEtiapine FUMARATE 100 MG TAB PO SCH (22:28)
[2022-10-10] MEDS: MIRTAZAPINE 30 MG TAB PO SCH (22:29)
[2022-10-11] MEDS ORDERED: ACCU-CHEK COMFORT CURVE STRIP VI SCH
[2022-10-11] MEDS ORDERED: InsuLIN REG 1unit/0.01ml Soln (100units/ml) ONE (00:15)
[2022-10-11] MEDS: InsuLIN R (HUMAN) 100 UNITS in SODIUM CHL 0.9% 99 ML IV SCH ×2 (00:22→01:48)
[2022-10-11 00:23] LABS: Magnesium 2.2 mg/dL (1.6-2.6); Phosphorus 3.8 mg/dL (2.5-4.90)
[2022-10-11] MEDS: ACCU-CHEK COMFORT CURVE STRIP VI SCH ×11 (00:26→22:29)
[2022-10-11] MEDS ORDERED: InsuLIN R (HUMAN) 100 UNITS in SODIUM CHL 0.9% 99 ML IV SCH ×2 (05:00→07:45)
[2022-10-11 05:27] LABS: Basophils # (auto) 0 10 ^3/uL (0-0.2); Basophils % (auto) 0.3 % (0.0-2.0); Eosinophils # (auto) 0 10 ^3/uL (0-0.8); Eosinophils % (auto) 0.1 % (0.0-7.0); Hematocrit 35.3 % (41.0-53.0); Hemoglobin 11.5 g/dL (13.5-17.5); Lymphocytes # (auto) 1.1 10 ^3/uL (0.4-5.4); Lymphocytes % (auto) 10.6 % (10.0-50.0); Mean Corpuscular Hemoglobin 29.5 pg (28.0-32.0); Mean Corpuscular Hgb Conc. 32.7 g/dL (32.0-36.0); Mean Corpuscular Volume 90.2 fL (80.0-100.0); Monocytes # (auto) 0.9 10 ^3/uL (0-1.3); Monocytes % (auto) 8.9 % (0.0-12.0); Neutrophils # (auto) 8.4 10 ^3/uL (1.6-8.6); Neutrophils % (auto) 80.1 % (37.0-80.0); Red Blood Cells 3.91 10^6/uL (4.5-5.90); White Blood Cell 10.6 10^3/uL (4.4-10.8)
[2022-10-11] MEDS: QUEtiapine FUMARATE 100 MG TAB PO SCH ×3 (06:44→22:38)
[2022-10-11] MEDS ORDERED: InsuLIN REG 1unit/0.01ml Soln (100units/ml) SC SCH ×3 (07:00→22:00)
[2022-10-11 07:16] LABS: Albumin 3.2 g/dL (3.4-5.0); Calcium 8.7 mg/dL (8.5-10.1); Potassium 4.8 mmol/L (3.5-5.1)
[2022-10-11 07:20] LABS: BUN/Creatinine Ratio 23.5; Bilirubin, Total 0.7 mg/dL (0.2-1.0); Total Protein 5.9 g/dL (6.4-8.2)
[2022-10-11] MEDS: BUPROPION HCL PO SCH (07:37)
[2022-10-11] MEDS: MIRTAZAPINE 30 MG TAB PO SCH ×2 (09:53→22:38)
[2022-10-11] MEDS: PANTOPRAZOLE 40 MG/10 ML VIAL INJ IV SCH (09:53)
[2022-10-11] MEDS: FLUoxetine HCL 10 MG CAP PO SCH (09:54)
[2022-10-11] MEDS: lamoTRIgine 25 MG TAB PO SCH (09:54)
[2022-10-11] MEDS: DABIGATRAN 75 MG CAP PO SCH ×2 (09:55→22:00)
[2022-10-11] MEDS: METOPROLOL TARTRATE 50 MG TAB PO SCH ×2 (09:56→22:39)
[2022-10-11] MEDS: FUROSEMIDE 20 MG/2 ML VIAL IV SCH (09:57)
[2022-10-11] MEDS: LOSARTAN POTASSIUM 50 MG TAB PO SCH (09:57)
[2022-10-11] MEDS ORDERED: CLOPIDOGREL BISULFATE 75 MG TAB PO SCH (10:00)
[2022-10-11] MEDS: Fenofibrate 1 TAB PO SCH (10:00)
[2022-10-11] MEDS ORDERED: ENOXAPARIN SOD 40 MG/0.4 ML SYRINGE SC SCH (10:00)
[2022-10-11] MEDS ORDERED: FUROSEMIDE 20 MG TAB PO SCH (10:00)
[2022-10-11] MEDS ORDERED: Bisoprolol Fumarate 10 MG PO SCH (10:00)
[2022-10-11 11:35] LABS: BUN/Creatinine Ratio 23.6; Calcium 8.9 mg/dL (8.5-10.1); Potassium 3.9 mmol/L (3.5-5.1)
[2022-10-11] MEDS ORDERED: DEXTROSE (50%) 50ML SYRG IV PRN (12:15)
[2022-10-11] MEDS: SODIUM CHLORIDE 0.9% 1,000 ML IV SCH (14:23)
[2022-10-11 17:00] VITALS: BP 143/38
[2022-10-11] MEDS: GABAPENTIN 300 MG CAP PO SCH (17:10)
[2022-10-11] MEDS: InsuLIN REG 1unit/0.01ml Soln (100units/ml) SC SCH (17:15)
[2022-10-11 17:47] LABS: Calcium 9.1 mg/dL (8.5-10.1); Potassium 3.9 mmol/L (3.5-5.1)
[2022-10-11 20:00] VITALS: BP 141/64
[2022-10-11 22:00] VITALS: BP 141/67
[2022-10-11] MEDS ORDERED: INSULIN LANTUS (GLARGINE) 1 /0.01ml (100units/ml) SC SCH (22:00)
[2022-10-11] MEDS: ATORVASTATIN 20 MG TAB PO SCH (22:39)
[2022-10-12] MEDS: ALBUTEROL MEDNEB 2.5 mg/3ml NEB NEB PRN ×3 (03:26→19:35)
[2022-10-12] MEDS: IPRATROPIUM BROM 0.5 MG/2.5ML INH SOL NEB PRN ×3 (03:27→19:35)
[2022-10-12 05:00] VITALS: BP 135/60
[2022-10-12] MEDS: SODIUM CHLORIDE 0.9% 1,000 ML IV SCH ×2 (06:20→23:00)
[2022-10-12] MEDS: QUEtiapine FUMARATE 100 MG TAB PO SCH ×3 (06:54→21:26)
[2022-10-12] MEDS: BUPROPION HCL PO SCH (07:00)
[2022-10-12] MEDS: InsuLIN REG 1unit/0.01ml Soln (100units/ml) SC SCH ×4 (07:00→21:28)
[2022-10-12] MEDS: ACCU-CHEK COMFORT CURVE STRIP VI SCH ×4 (07:24→21:27)
[2022-10-12 09:00] VITALS: BP 109/74
[2022-10-12] MEDS: PANTOPRAZOLE 40 MG/10 ML VIAL INJ IV SCH (09:25)
[2022-10-12] MEDS: FUROSEMIDE 20 MG/2 ML VIAL IV SCH (09:25)
[2022-10-12] MEDS: LOSARTAN POTASSIUM 50 MG TAB PO SCH (09:26)
[2022-10-12] MEDS: Fenofibrate 1 TAB PO SCH (09:26)
[2022-10-12] MEDS: MIRTAZAPINE 30 MG TAB PO SCH ×2 (09:27→21:26)
[2022-10-12] MEDS: lamoTRIgine 25 MG TAB PO SCH (09:27)
[2022-10-12] MEDS: DABIGATRAN 75 MG CAP PO SCH ×2 (09:27→11:37)
[2022-10-12] MEDS: METOPROLOL TARTRATE 50 MG TAB PO SCH (09:27)
[2022-10-12] MEDS: FLUoxetine HCL 10 MG CAP PO SCH (10:00)
[2022-10-12] MEDS ORDERED: BUPR-160 PO (11:34)
[2022-10-12] MEDS ORDERED: FLUO-125 PO (11:35)
[2022-10-12] MEDS ORDERED: HYDROcodone-ACET 5/325MG TAB PO PRN (12:00)
[2022-10-12] MEDS ORDERED: DEXTROSE (50%) 50ML SYRG IV PRN (12:00)
[2022-10-12 13:00] VITALS: BP 129/72
[2022-10-12 17:00] VITALS: BP 138/69
[2022-10-12] MEDS ORDERED: InsuLIN REG 1unit/0.01ml Soln (100units/ml) SC SCH (17:00)
[2022-10-12] MEDS: GABAPENTIN 300 MG CAP PO SCH (17:07)
[2022-10-12] MEDS: ATORVASTATIN 20 MG TAB PO SCH (21:25)
[2022-10-12] MEDS: INSULIN LANTUS (GLARGINE) 1 /0.01ml (100units/ml) SC SCH (21:28)
[2022-10-12] MEDS: ONDANSETRON HCL 4 MG/2 ML VIAL IV PRN (21:29)
[2022-10-12 22:00] VITALS: BP 138/76
[2022-10-12] MEDS ORDERED: INSULIN LANTUS (GLARGINE) 1 /0.01ml (100units/ml) SC SCH (22:00)
[2022-10-13] MEDS: IPRATROPIUM BROM 0.5 MG/2.5ML INH SOL NEB PRN ×2 (03:02→23:40)
[2022-10-13] MEDS: ALBUTEROL MEDNEB 2.5 mg/3ml NEB NEB PRN ×3 (03:02→23:39)
[2022-10-13 05:00] VITALS: BP 104/62
[2022-10-13] MEDS: QUEtiapine FUMARATE 100 MG TAB PO SCH ×3 (05:16→21:23)
[2022-10-13] MEDS: METOPROLOL SUCCINATE XL 50 MG TAB PO SCH ×2 (06:05→10:45)
[2022-10-13] MEDS: BUPROPION HCL 100 MG PO SCH (06:09)
[2022-10-13] MEDS: ACCU-CHEK COMFORT CURVE STRIP VI SCH ×4 (06:10→21:55)
[2022-10-13] MEDS: InsuLIN REG 1unit/0.01ml Soln (100units/ml) SC SCH ×4 (06:18→22:00)
[2022-10-13 08:00] VITALS: BP 92/59
[2022-10-13 09:00] VITALS: BP 92/59
[2022-10-13] MEDS: FUROSEMIDE 20 MG/2 ML VIAL IV SCH (10:41)
[2022-10-13] MEDS: PANTOPRAZOLE 40 MG/10 ML VIAL INJ IV SCH (10:41)
[2022-10-13] MEDS: Bisoprolol Fumarate 10 MG PO SCH (10:41)
[2022-10-13] MEDS: Fenofibrate 1 TAB PO SCH (10:42)
[2022-10-13] MEDS: lamoTRIgine 25 MG TAB PO SCH (10:44)
[2022-10-13] MEDS: POTASSIUM CHL 10 Meq TABLET PO SCH (10:45)
[2022-10-13] MEDS: DABIGATRAN 75 MG CAP PO SCH ×2 (10:45→21:22)
[2022-10-13] MEDS: MIRTAZAPINE 30 MG TAB PO SCH ×2 (10:46→21:21)
[2022-10-13] MEDS ORDERED: BUDESONIDE (INHALATION) 0.5 MG/2 ML NEB ONE (10:58)
[2022-10-13] MEDS ORDERED: IPRATROPIUM BROM 0.5 MG/2.5ML INH SOL ONE (10:59)
[2022-10-13] MEDS: IPRATROPIUM BROM 0.5 MG/2.5ML INH SOL NEB SCH ×2 (11:00→18:23)
[2022-10-13] MEDS: BUDESONIDE (INHALATION) 0.5 MG/2 ML NEB NEB SCH ×2 (11:00→18:23)
[2022-10-13] MEDS: FLUoxetine HCL 10 MG CAP PO SCH (12:29)
[2022-10-13] MEDS: SODIUM CHLORIDE 0.9% 1,000 ML IV SCH (12:29)
[2022-10-13 13:00] VITALS: BP 135/75
[2022-10-13 17:00] VITALS: BP 120/60
[2022-10-13] MEDS: GABAPENTIN 300 MG CAP PO SCH (17:44)
[2022-10-13] MEDS: ONDANSETRON HCL 4 MG/2 ML VIAL IV PRN (18:56)
[2022-10-13] MEDS: ATORVASTATIN 20 MG TAB PO SCH (21:21)
[2022-10-13 22:00] VITALS: BP 115/67
[2022-10-13] MEDS: INSULIN LANTUS (GLARGINE) 1 /0.01ml (100units/ml) SC SCH (22:00)
[2022-10-14 01:51] VITALS: BP 136/64
[2022-10-14 05:00] VITALS: BP 119/74
[2022-10-14] MEDS: QUEtiapine FUMARATE 100 MG TAB PO SCH ×3 (05:10→21:17)
[2022-10-14] MEDS: ALBUTEROL MEDNEB 2.5 mg/3ml NEB NEB PRN ×3 (06:16→19:44)
[2022-10-14] MEDS: BUDESONIDE (INHALATION) 0.5 MG/2 ML NEB NEB SCH ×2 (06:17→19:44)
[2022-10-14] MEDS: IPRATROPIUM BROM 0.5 MG/2.5ML INH SOL NEB PRN ×2 (06:17→15:12)
[2022-10-14] MEDS: IPRATROPIUM BROM 0.5 MG/2.5ML INH SOL NEB SCH ×2 (06:17→19:44)
[2022-10-14] MEDS: ACCU-CHEK COMFORT CURVE STRIP VI SCH ×4 (06:24→21:19)
[2022-10-14] MEDS: BUPROPION HCL 100 MG PO SCH (06:24)
[2022-10-14] MEDS: InsuLIN REG 1unit/0.01ml Soln (100units/ml) SC SCH ×4 (06:29→21:20)
[2022-10-14 08:00] VITALS: BP 104/70
[2022-10-14] MEDS: SODIUM CHLORIDE 0.9% 1,000 ML IV SCH (08:02)
[2022-10-14] MEDS: FUROSEMIDE 20 MG/2 ML VIAL IV SCH (09:07)
[2022-10-14] MEDS: Bisoprolol Fumarate 10 MG PO SCH (09:08)
[2022-10-14] MEDS: PANTOPRAZOLE 40 MG/10 ML VIAL INJ IV SCH (09:08)
[2022-10-14] MEDS: Fenofibrate 1 TAB PO SCH (09:09)
[2022-10-14] MEDS: lamoTRIgine 25 MG TAB PO SCH (09:10)
[2022-10-14] MEDS: FLUoxetine HCL 10 MG CAP PO SCH (09:10)
[2022-10-14] MEDS: POTASSIUM CHL 10 Meq TABLET PO SCH (09:10)
[2022-10-14] MEDS: METOPROLOL SUCCINATE XL 50 MG TAB PO SCH (09:11)
[2022-10-14] MEDS: MIRTAZAPINE 30 MG TAB PO SCH ×2 (09:11→21:18)
[2022-10-14] MEDS: DABIGATRAN 75 MG CAP PO SCH ×2 (09:11→21:17)
[2022-10-14 12:00] VITALS: BP 142/70
[2022-10-14] MEDS: ONDANSETRON HCL 4 MG/2 ML VIAL IV PRN (13:26)
[2022-10-14 16:00] VITALS: BP 141/69
[2022-10-14] MEDS: GABAPENTIN 300 MG CAP PO SCH (17:46)
[2022-10-14] MEDS: ATORVASTATIN 20 MG TAB PO SCH (21:17)
[2022-10-14] MEDS: INSULIN LANTUS (GLARGINE) 1 /0.01ml (100units/ml) SC SCH (21:20)
[2022-10-14 22:00] VITALS: BP 119/64
[2022-10-15] MEDS: ALBUTEROL MEDNEB 2.5 mg/3ml NEB NEB PRN ×2 (02:27→08:54)
[2022-10-15] MEDS: IPRATROPIUM BROM 0.5 MG/2.5ML INH SOL NEB PRN ×2 (02:27→08:54)
[2022-10-15 05:00] VITALS: BP 106/53
[2022-10-15] MEDS: QUEtiapine FUMARATE 100 MG TAB PO SCH (05:03)
[2022-10-15] MEDS: BUPROPION HCL 100 MG PO SCH (05:54)
[2022-10-15] MEDS: ACCU-CHEK COMFORT CURVE STRIP VI SCH ×2 (05:55→12:02)
[2022-10-15] MEDS: InsuLIN REG 1unit/0.01ml Soln (100units/ml) SC SCH ×2 (05:55→12:16)
[2022-10-15 08:00] VITALS: BP 106/81
[2022-10-15] MEDS: BUDESONIDE (INHALATION) 0.5 MG/2 ML NEB NEB SCH (08:54)
[2022-10-15 09:02] VITALS: BP 106/81
[2022-10-15] MEDS: METOPROLOL SUCCINATE XL 50 MG TAB PO SCH ×2 (10:00→13:08)
[2022-10-15] MEDS: Bisoprolol Fumarate 10 MG PO SCH (10:00)
[2022-10-15] MEDS: IPRATROPIUM BROM 0.5 MG/2.5ML INH SOL NEB SCH (10:00)
[2022-10-15] MEDS: FUROSEMIDE 20 MG/2 ML VIAL IV SCH ×2 (10:00→13:08)
[2022-10-15] MEDS: PANTOPRAZOLE 40 MG/10 ML VIAL INJ IV SCH (10:25)
[2022-10-15] MEDS: Fenofibrate 1 TAB PO SCH (10:25)
[2022-10-15] MEDS: MIRTAZAPINE 30 MG TAB PO SCH (10:26)
[2022-10-15] MEDS: FLUoxetine HCL 10 MG CAP PO SCH (10:26)
[2022-10-15] MEDS: POTASSIUM CHL 10 Meq TABLET PO SCH (10:26)
[2022-10-15] MEDS: lamoTRIgine 25 MG TAB PO SCH (10:26)
[2022-10-15] MEDS: DABIGATRAN 75 MG CAP PO SCH (10:26)
[2022-10-15 13:14] VITALS: BP 151/73
[2022-10-15 13:17] VITALS: BP 151/73
== END 2022-10-15 13:56 | disposition home or self-care (01) | DRG 637 ==
LOC: EDBD 06:37 → ER 06:37 → TELE 18:43 → TELE-EAST 10-11 16:09
PROVIDERS: ADMIT Nurse Practitioner Family; ATTEND Internal Medicine
DX: E10.10 Type 1 diabetes mellitus with ketoacidosis without coma (principal); I50.23 Acute on chronic systolic (congestive) heart failure; J96.01 Acute respiratory failure with hypoxia; J44.1 Chronic obstructive pulmonary disease with (acute) exacerbation; I13.0 Hypertensive heart and chronic kidney disease with heart failure and stage 1 through stage 4 chronic kidney disease, or unspecified chronic kidney disease; K86.1 Other chronic pancreatitis; N17.9 Acute kidney failure, unspecified; I42.9 Cardiomyopathy, unspecified; J98.11 Atelectasis; I24.9 Acute ischemic heart disease, unspecified; Z66 Do not resuscitate; Z20.822 Contact with and (suspected) exposure to COVID-19; D72.829 Elevated white blood cell count, unspecified; I48.91 Unspecified atrial fibrillation; E78.5 Hyperlipidemia, unspecified; E10.22 Type 1 diabetes mellitus with diabetic chronic kidney disease; E10.40 Type 1 diabetes mellitus with diabetic neuropathy, unspecified; I25.10 Atherosclerotic heart disease of native coronary artery without angina pectoris; N18.30 Chronic kidney disease, stage 3 unspecified; Z88.2 Allergy status to sulfonamides; Z88.8 Allergy status to other drugs, medicaments and biological substances; Z51.5 Encounter for palliative care; Z79.01 Long term (current) use of anticoagulants; Z80.1 Family history of malignant neoplasm of trachea, bronchus and lung; Z80.6 Family history of leukemia; Z83.3 Family history of diabetes mellitus; Z87.891 Personal history of nicotine dependence; Z90.49 Acquired absence of other specified parts of digestive tract; Z95.1 Presence of aortocoronary bypass graft
CPT/HCPCS: 36415; 36600; 71045; 74176; 78582; 80048; 80053; 81001; 82010; 82570; 82805; 82962; 83690; 83735; 83880; 83930; 84100; 84300; 84484; 85025; 85379; 85610; 85730; 87426; 87804; 93005; 93306; 94003; 94640; 96361; 96374; 96375; 96376; 97163; 99291; C9113; G0378; J1815; J2405

== ENCOUNTER 2022-12-18 05:18 | Emergency (ER) | payer MEDICARE, OTHER ==
[~2022-12-18] VITALS: Ht 170.2 cm; Wt 70.5 kg
[~2022-12-18 05:18] MED LIST changes: +BUPR-160 PO; -BUPR150T18 PO; -CLOP75TA28 PO; +FLUO-125 PO; -FLUO-126 PO; -LOSA-69 PO; -METO-158 PO
[2022-12-18 05:45] LABS: Basophils # (auto) 0 10 ^3/uL (0-0.2); Basophils % (auto) 0.3 % (0.0-2.0); Eosinophils # (auto) 0 10 ^3/uL (0-0.8); Hematocrit 44.2 % (41.0-53.0); Hemoglobin 14.5 g/dL (13.5-17.5); Lymphocytes # (auto) 0.3 10 ^3/uL (0.4-5.4); Lymphocytes % (auto) 2.2 % (10.0-50.0); Mean Corpuscular Hemoglobin 28.9 pg (28.0-32.0); Mean Corpuscular Hgb Conc. 32.7 g/dL (32.0-36.0); Mean Corpuscular Volume 88.5 fL (80.0-100.0); Monocytes # (auto) 0.3 10 ^3/uL (0-1.3); Monocytes % (auto) 2.5 % (0.0-12.0); Neutrophils # (auto) 11.9 10 ^3/uL (1.6-8.6); Red Blood Cells 4.99 10^6/uL (4.5-5.90); Red Cell Distribution Width 15.6 % (11.8-14.3); White Blood Cell 12.5 10^3/uL (4.4-10.8)
[2022-12-18 06:14] LABS: Albumin 4.3 g/dL (3.4-5.0); BUN/Creatinine Ratio 21.3 (10.0-20.0); Calcium 9.6 mg/dL (8.5-10.1); Potassium 4.2 mmol/L (3.5-5.1)
[2022-12-18 06:17] LABS: Bilirubin, Total 0.9 mg/dL (0.2-1.0); Total Protein 7.8 g/dL (6.4-8.2)
[2022-12-18] MEDS ORDERED: SODIUM CHLORIDE 0.9% 1,000 ML IV ONE (06:45)
[2022-12-18 07:02] LABS: Urine Bacteria NONE SEEN /hpf (None Seen); Urine Blood Negative /uL (Negative); Urine Specific Gravity 1.022 (1.001-1.035); Urine WBC <1 /hpf (0 - 3)
[2022-12-18] MEDS ORDERED: ONDANSETRON HCL 4 MG/2 ML VIAL IV ONE (07:30)
[2022-12-18] MEDS ORDERED: methylPREDNISolone SOD SUCC 125 MG/2 ML VL IV ONE (07:30)
[2022-12-18] MEDS ORDERED: metroNIDAZOLE 500MG/100ML 100 ML IV ONE (07:30)
[2022-12-18] MEDS ORDERED: ALBUTEROL SULF 2.5 MG/0.5ML(0.5%) NEB SOLN NEB ONE (07:30)
[2022-12-18] MEDS ORDERED: cefTRIAXone 1GM/50ML D5W 50 ML IV ONE (07:30)
[2022-12-18] MEDS ORDERED: IPRATROPIUM BROM 0.5 MG/2.5ML INH SOL NEB ONE (07:30)
[2022-12-18] MEDS ORDERED: InsuLIN REG 1unit/0.01ml Soln (100units/ml) IV ONE (11:30)
[2022-12-18 11:54] VITALS: BP 162/77
== END 2022-12-18 09:22 | disposition short-term general hospital (02) ==
LOC: ER 05:18 → EDUNIT# 05:18 → EDBD 05:18 → ER 09:22
DX: K52.9 Noninfective gastroenteritis and colitis, unspecified (principal); J44.1 Chronic obstructive pulmonary disease with (acute) exacerbation; E11.65 Type 2 diabetes mellitus with hyperglycemia; R07.89 Other chest pain; I11.0 Hypertensive heart disease with heart failure; I50.9 Heart failure, unspecified; I25.2 Old myocardial infarction; I25.10 Atherosclerotic heart disease of native coronary artery without angina pectoris; E78.5 Hyperlipidemia, unspecified; K21.9 Gastro-esophageal reflux disease without esophagitis; Z95.1 Presence of aortocoronary bypass graft; Z90.49 Acquired absence of other specified parts of digestive tract; Z90.89 Acquired absence of other organs; Z79.899 Other long term (current) drug therapy; Z79.4 Long term (current) use of insulin; Z88.2 Allergy status to sulfonamides; Z88.8 Allergy status to other drugs, medicaments and biological substances
CPT/HCPCS: 36415; 71045; 80053; 81001; 82962; 83605; 84484; 85025; 87040; 93005; 94640; 96365; 96367; 96375; 99285; J0696; J1815; J2405; J2930; J3490; J7030; J7644

== ENCOUNTER 2023-04-18 08:15 | Emergency (ER) | payer MEDICARE, OTHER ==
[~2023-04-18] VITALS: Ht 175.3 cm; Wt 52.2 kg
[~2023-04-18 08:15] MED LIST changes: -BUPR-160 PO; +BUPR-346 PO; +FENO160T PO; -FENO160T8 PO; +GABA-1250 PO; -GABA300C10 PO; -MIRT-66 PO; +MIRT-94 PO
[2023-04-18] MEDS ORDERED: SODIUM CHLORIDE 0.9% 1,000 ML IV ONE (08:45)
[2023-04-18] MEDS ORDERED: InsuLIN REG 1unit/0.01ml Soln (100units/ml) IV ONE (08:45)
[2023-04-18 09:15] LABS: Basophils # (auto) 0.1 10 ^3/uL (0-0.2); Eosinophils # (auto) 0 10 ^3/uL (0-0.8); Eosinophils % (auto) 0.1 % (0.0-7.0); Monocytes # (auto) 0.3 10 ^3/uL (0-1.3)
[2023-04-18 09:17] LABS: Basophils % (auto) 0.8 % (0.0-2.0); Hematocrit 44.8 % (41.0-53.0); Hemoglobin 14.1 g/dL (13.5-17.5); Lymphocytes # (auto) 0.6 10 ^3/uL (0.4-5.4); Lymphocytes % (auto) 5.9 % (10.0-50.0); Mean Corpuscular Hemoglobin 28.2 pg (28.0-32.0); Mean Corpuscular Hgb Conc. 31.4 g/dL (32.0-36.0); Monocytes % (auto) 2.3 % (0.0-12.0); Neutrophils % (auto) 90.9 % (37.0-80.0); Nucleated Red Blood Cells % 0.1 %; Red Blood Cells 4.98 10^6/uL (4.5-5.90); Red Cell Distribution Width 15.9 % (11.8-14.3)
[2023-04-18 09:33] LABS: Albumin 4.3 g/dL (3.4-5.0); Calcium 9.9 mg/dL (8.5-10.1); Magnesium 2.3 mg/dL (1.6-2.6); Potassium 4.5 mmol/L (3.5-5.1)
[2023-04-18 09:36] LABS: Bilirubin, Total 0.8 mg/dL (0.2-1.0); Total Protein 8.3 g/dL (6.4-8.2)
[2023-04-18 09:44] LABS: BUN/Creatinine Ratio 19.2 (10.0-20.0)
[2023-04-18 11:21] LABS: Urine Bacteria NONE SEEN /hpf (None Seen); Urine Blood Negative /uL (Negative); Urine Specific Gravity 1.027 (1.001-1.035); Urine WBC <1 /hpf (0 - 3)
[2023-04-18 11:41] VITALS: PULSE 85; RESP 21; O2SAT 96
[2023-04-18] MEDS ORDERED: DEXTROSE (50%) 50ML SYRG IV PRN (11:45)
[2023-04-18] MEDS ORDERED: INSULIN LANTUS (GLARGINE) 1 /0.01ml (100units/ml) SC ONE (11:45)
[2023-04-18] MEDS ORDERED: InsuLIN R (HUMAN) 100 UNITS in SODIUM CHL 0.9% 99 ML IV SCH (11:45)
[2023-04-18] MEDS: ACCU-CHEK COMFORT CURVE STRIP VI SCH ×5 (12:20→18:05)
[2023-04-18 18:00] VITALS: BP 122/45; PULSE 76; RESP 17; TEMP 98; O2SAT 97
[2023-04-18] MEDS ORDERED: D5W/SOD CHL 0.45% 1,000 ML IV ONE (18:30)
[2023-04-19] MEDS ORDERED: INSULIN LANTUS (GLARGINE) 1 /0.01ml (100units/ml) SC SCH (10:00)
== END 2023-04-18 18:44 | disposition home or self-care (01) ==
LOC: EDBD 08:15 → EDUNIT# 08:15 → ER 08:15
DX: E11.10 Type 2 diabetes mellitus with ketoacidosis without coma (principal); E11.65 Type 2 diabetes mellitus with hyperglycemia; I11.0 Hypertensive heart disease with heart failure; I50.9 Heart failure, unspecified; J44.9 Chronic obstructive pulmonary disease, unspecified; E78.5 Hyperlipidemia, unspecified; I25.2 Old myocardial infarction; Z88.2 Allergy status to sulfonamides; Z88.6 Allergy status to analgesic agent; Z90.49 Acquired absence of other specified parts of digestive tract
CPT/HCPCS: 36415; 36600; 71045; 80053; 81001; 82010; 82805; 82947; 82962; 83735; 85025; 93005; 96361; 96365; 96366; 96376; 99291; J1815; J7030; 96372; 96375

== ENCOUNTER 2023-05-03 07:23 | Emergency (ER) | payer MEDICARE, OTHER ==
[~2023-05-03] VITALS: Ht 172.7 cm; Wt 73.0 kg
[2023-05-03] MEDS ORDERED: InsuLIN R (HUMAN) 100 UNITS in SODIUM CHL 0.9% 99 ML IV SCH (07:45)
[2023-05-03] MEDS ORDERED: SODIUM CHLORIDE 0.9% 1,000 ML IVB ONE (07:45)
[2023-05-03] MEDS ORDERED: DEXTROSE (50%) 50ML SYRG IV PRN (07:45)
[2023-05-03] MEDS ORDERED: PROCHLORPERAZINE EDISYLATE 5 MG/ML 2ML VIAL IV ONE (07:45)
[2023-05-03] MEDS ORDERED: INSULIN LANTUS (GLARGINE) 1 /0.01ml (100units/ml) SC ONE (07:45)
[2023-05-03 08:20] VITALS: PULSE 87; RESP 22; O2SAT 97
[2023-05-03 08:37] LABS: Base Excess -7.6 mmol/L (-2.0-2.0)
[2023-05-03 08:38] LABS: Albumin 3.5 g/dL (3.4-5.0); Calcium 9.2 mg/dL (8.5-10.1); Magnesium 2.4 mg/dL (1.6-2.6); Potassium 4.7 mmol/L (3.5-5.1)
[2023-05-03 08:39] LABS: Basophils # (auto) 0.1 10 ^3/uL (0-0.2); Hematocrit 41.8 % (41.0-53.0); Lymphocytes # (auto) 0.7 10 ^3/uL (0.4-5.4); Mean Corpuscular Hgb Conc. 31.7 g/dL (32.0-36.0); Monocytes # (auto) 0.5 10 ^3/uL (0-1.3); Monocytes % (auto) 4.3 % (0.0-12.0); Neutrophils # (auto) 9.6 10 ^3/uL (1.6-8.6); Red Blood Cells 4.71 10^6/uL (4.5-5.90); White Blood Cell 11.1 10^3/uL (4.4-10.8)
[2023-05-03 08:41] LABS: BUN/Creatinine Ratio 12.7 (10.0-20.0); Bilirubin, Total 0.7 mg/dL (0.2-1.0); Total Protein 7.3 g/dL (6.4-8.2)
[2023-05-03 08:42] LABS: Basophils % (auto) 0.8 % (0.0-2.0); Eosinophils # (auto) 0.3 10 ^3/uL (0-0.8); Eosinophils % (auto) 2.3 % (0.0-7.0); Hemoglobin 13.3 g/dL (13.5-17.5); Lymphocytes % (auto) 6.6 % (10.0-50.0); Mean Corpuscular Hemoglobin 28.2 pg (28.0-32.0); Mean Corpuscular Volume 88.9 fL (80.0-100.0); Nucleated Red Blood Cells % 0.1 %; Red Cell Distribution Width 15.8 % (11.8-14.3)
[2023-05-03 08:43] LABS: INR 1.07 (0.9-1.15); Partial Thromboplastin Time 25.1 SEC (24.5-34.5); Prothrombin Time 11.2 sec (9.3-11.8)
[2023-05-03 09:16] LABS: Lactic Acid w/Reflex 2.5 mmol/L (0.4-2.0)
[2023-05-03] MEDS: ACCU-CHEK COMFORT CURVE STRIP VI SCH ×3 (09:31→12:31)
[2023-05-03 10:12] LABS: Urine Bacteria NONE SEEN /hpf (None Seen); Urine Blood Negative /uL (Negative); Urine Clarity Clear (Clear); Urine Color Colorless (Yellow); Urine Protein, UAD Negative (Negative); Urine Specific Gravity 1.024 (1.001-1.035); Urine Urobilinogen Normal (Negative); Urine WBC <1 /hpf (0 - 3)
[2023-05-03] MEDS ORDERED: cloNIDine HCL 0.1 MG TAB PO ONE (10:15)
[2023-05-03] MEDS ORDERED: cefTRIAXone 1GM/50ML D5W 50 ML IV ONE (12:00)
[2023-05-03 12:46] VITALS: BP 127/63; PULSE 84; RESP 24; TEMP 98; O2SAT 95
[2023-05-04] MEDS ORDERED: INSULIN LANTUS (GLARGINE) 1 /0.01ml (100units/ml) SC SCH (10:00)
== END 2023-05-03 13:03 | disposition short-term general hospital (02) ==
LOC: EDUNIT# 07:23 → EDBD 07:23 → ER 07:23
DX: E11.10 Type 2 diabetes mellitus with ketoacidosis without coma (principal); E86.0 Dehydration; R74.02 Elevation of levels of lactic acid dehydrogenase [LDH]; D72.829 Elevated white blood cell count, unspecified; I11.0 Hypertensive heart disease with heart failure; I50.9 Heart failure, unspecified; J44.9 Chronic obstructive pulmonary disease, unspecified; K21.9 Gastro-esophageal reflux disease without esophagitis; E78.5 Hyperlipidemia, unspecified; F12.10 Cannabis abuse, uncomplicated; R51.9 Headache, unspecified; I25.2 Old myocardial infarction; Z90.49 Acquired absence of other specified parts of digestive tract; Z88.2 Allergy status to sulfonamides; Z88.8 Allergy status to other drugs, medicaments and biological substances
CPT/HCPCS: 36415; 36600; 70450; 71045; 80053; 81001; 82010; 82805; 82962; 83605; 83735; 85025; 85610; 85730; 87040; 93005; 96365; 96366; 96368; 96372; 96375; 99291; J0696; J0780; J1815; 96367

== ENCOUNTER 2024-12-27 12:48 | Inpatient (IN) | payer MEDICARE, OTHER ==
[~2024-12-27] VITALS: Ht 180.3 cm; Wt 77.4 kg
[~2024-12-27 12:48] MED LIST changes: +ALBU108A5 INH; +BISO10TA31 PO; +FLUT1AER7 INH; +HYDR-4902 PO; +POTA-36 PO; -POTA10TA51 PO; +QUET50TA PO
--- NOTE | 2024-12-27 13:25 | ECG ---
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
--- NOTE | 2024-12-27 13:31 | ED.PDOC ---
SOB-HPI HPI Comments 74 y.o male with PMHx of COPD, asthma, CHF, CAD, DM, HTN, GERD, [place], and hy perlipidemia, presents to the ED via EMS for a chief complaint of SOB x 1-2 weeks. Patient reports SOB worsened the past week, states he has been using his inhaler more frequently but has no relief. Patient went to [place] urgent care today for complaint, had CXR and blood work done which showed elevated troponin levels and was sent to the ED for higher level of care. Patient does mention substernal chest tightness that is nonradiating and constant with no alleviating or precipitating factors. Patient denies any nausea, vomiting, diarrhea, fever, chills, cough, back pain, recent illness or sick contact exposure. Patient also denies having any home oxygen. Chief Complaint: Shortness of Breath Time Seen by MD: 13:23 Primary Care Provider: PILYK Reviewed notes: Nurses Notes, Wraparound Facilitator Notes, Medications, Allergies Information Source: Patient Mode of Arrival: EMS Severity: Moderate Timing: Weeks (1) Duration: Since onset Context: At Rest PE Risk Factors: None History of: Asthma, COPD, CHF Prehospital treatment: Accucheck (169) Associated Signs and Symptoms: Wheeze, Chest Pain Past Medical History PAST MEDICAL HISTORY: Asthma, CAD, CHF, COPD, Depression, DM, GERD, High Lipids, HTN, [place] Surgical History: CABG, Cholecystectomy, PTCA, Tonsillectomy Family History Family History: Family hx of DM Social History Smoker: Non-Smoker Alcohol: Rarely Drugs: Marijuana Lives In: Home Constitutional: denies: chills, diaphoresis, fatigue, fever, malaise, sweats, weakness, others EENTM: denies: blurred vision, double vision, ear bleeding, ear discharge, ear drainage, ear pain, ear ringing, eye pain, eye redness, hearing loss, mouth pain, mouth swelling, nasal discharge, nose bleeding, nose congestion, nose pain, photophobia, tearing, throat pain, throat swelling, voice changes, others Respiratory: reports: SOB at rest, shortness of breath, SOB with excertion; denies: cough, hemoptysis, orthopnea, stridor, wheezing, others Cardiovascular: reports: chest pain; denies: dizzy spells, diaphoresis, Dyspnea on exertion, edema, irregular heart beat, left arm pain, lightheadedness, palpitations, PND, syncope, others Gastrointestinal: denies: abdomen distended, abdominal pain, blood streaked bowels, constipated, diarrhea, dysphagia, difficulty swallowing, hematemesis, melena, nausea, poor appetite, poor fluid intake, rectal bleeding, rectal pain, vomiting, others Genitourinary: denies: burning, dysuria, flank pain, frequency, hematuria, incontinence, penile discharge, penile sore, pain, testicle pain, testicle swelling, urgency, others Neurological: denies: dizziness, fainting, headache, left sided numbness, left sided weakness, numbness, paresthesia, pre-existing deficit, right sided numbness, right sided weakness, seizure, speech problems, tingling, tremors, weakness, others Musculoskeletal: denies: back pain, gout, joint pain, joint swelling, muscle pain, muscle stiffness, neck pain, others Integumetry: denies: bruises, change in color, change in hair/nails, dryness, laceration, lesions, lumps, rash, wounds, others Allergic/Immunocompromised: denies: Difficulty Healing, Frequent Infections, Hives, Itching, others Hematologic/Lymphatic: denies: anemia, blood clots, easy bleeding, easy bruising, swollen glands, others Endocrine: denies: excessive hunger, excessive sweating, excessive thirst, excessive urination, flushing, intolerance to cold, intolerance to heat, unexplained weight gain, unexplained weight loss, others Psychiatric: denies: anxiety, bipolar disorder, depression, hopeless, panic disorder, schizophrenia, sleepless, suicidal, others All Other Systems: Reviewed and Negative Physical Exam General Appearance: Mild Distress HEENT: Normal ENT Inspection, Pharynx Normal, TMs Normal Neck: Full Range of Motion, Non-Tender, Normal, Normal Inspection Respiratory: Respiratory Distress, Wheezing (mildly, scattered bilaterally ) Cardiovascular: No Edema, No JVD, No Murmur, No Gallop, Normal Peripheral Pulses, Regular Rate/Rhythm Breast Exam: Deferred Gastrointestinal: No Organomegaly, Non Tender, No Pulsatile Mass, Normal Bowel Sounds, Soft Genitalia: Deferred Pelvic: Deferred Rectal: Deferred Extremities: No calf tenderness, Normal capillary refill, Normal inspection, Normal range of motion, Non-tender, No pedal edema Musculoskeletal : Apperance: Normal Neurologic: Alert, fabrication technician II-XII nml as Tested, No Motor Deficits, Normal Affect, Normal Mood, No Sensory Deficits Cerebellar Function: Normal Reflexes: Normal Skin: Dry, Normal Color, Warm Lymphatic: No Adenopathy Was a procedure done? Was a procedure done?: No Differential Dx Differential Diagnosis: Asthma, Bronchitis, CHF, COPD, Pneumonia, Respiratory Distress, URI X-Ray, Labs, Meds, VS Vital Signs Date Time Temp Pulse Resp B/P (MAP) Pulse Ox O2 Delivery O2 Flow Rate FiO2 12/27/24 13:41 17 96 Room Air* 0 21 12/27/24 13:35 98.2 73 16 164/85 (111) 10 98.2 12/27/24 13:35 73 16 100 Room Air* 0 21 12/27/24 13:33 73 12/27/24 13:12 73 12/27/24 13:02 98.2 72 12 155/82 (106) 98 98.2 Lab Test 12/27/24 14:25 12/27/24 14:11 12/27/24 13:36 Range/Units Troponin I High Sensitivity 341 *H 341 *H </=54 ng/L POC Glucose 82 70-106 mg/dl White Blood Count 7.7 4.4-10.8 10^3/uL Red Blood Count 4.89 4.5-5.90 10^6/uL Hemoglobin 13.2 L 13.5-17.5 g/dL Hematocrit 40.7 L 41.0-53.0 % Mean Corpuscular Volume 83.3 80.0-100.0 fL Mean Corpuscular Hemoglobin 27.0 L 28.0-32.0 pg Mean Corpuscular Hemoglobin Concent 32.4 32.0-36.0 g/dL Red Cell Distribution Width 16.6 H 11.8-14.3 % Platelet Count 252 140-450 10^3/uL Mean Platelet Volume 7.6 6.9-10.8 fL Neutrophils (%) (Auto) 64.4 37.0-80.0 % Lymphocytes (%) (Auto) 18.3 10.0-50.0 % Monocytes (%) (Auto) 12.1 H 0.0-12.0 % Eosinophils (%) (Auto) 4.4 0.0-7.0 % Basophils (%) (Auto) 0.8 0.0-2.0 % Neutrophils # (Auto) 4.9 1.6-8.6 10 ^3/uL Lymphocytes # (Auto) 1.4 0.4-5.4 10 ^3/uL Monocytes # (Auto) 0.9 0-1.3 10 ^3/uL Eosinophils # (Auto) 0.3 0-0.8 10 ^3/uL Basophils # (Auto) 0.1 0-0.2 10 ^3/uL Nucleated Red Blood Cells 0.0 % Sodium Level 144 136-145 mmol/L Potassium Level 5.0 3.5-5.1 mmol/L Chloride Level 105 98-107 mmol/L Carbon Dioxide Level 31 20-31 mmol/L Anion Gap 8 5-15 Blood Urea Nitrogen 15 9-23 mg/dL Creatinine 1.12 0.700-1.30 mg/dL Glomerular Filtration Rate Calc 69 >90 mL/min BUN/Creatinine Ratio 13.4 10.0-20.0 Serum Glucose 48 *L 74-106 mg/dL Lactic Acid Level 3.0 *H 0.4-2.0 mmol/L Calcium Level 9.9 8.7-10.4 mg/dL Total Bilirubin 0.5 0.2-1.0 mg/dL Aspartate Amino Transferase (AST) 27 13-40 U/L Alanine Aminotransferase (ALT) 51 H 7-40 U/L Alkaline Phosphatase 95 46-116 U/L B-Type Natriuretic Peptide 909.85 0-100 pg/mL Total Protein 6.8 5.7-8.2 g/dL Albumin 4.4 3.2-4.8 g/dL Current Medications Medications (Trade) Dose Ordered Sig/Nazario Route Start Time Stop Time Status Last Admin Methylprednisolone Sodium Succinate (Solu Medrol) 80 mg ONCE ONCE IV 12/27/24 13:30 12/27/24 13:31 DC 12/27/24 13:37 Albuterol (Ventolin Medneb) 2.5 mg STAT ONCE N 12/27/24 13:30 12/27/24 13:31 DC 12/27/24 13:40 Ipratropium [place] (Atrovent Medneb) 0.5 mg ONCE ONCE HHN 12/27/24 13:30 12/27/24 13:31 DC 12/27/24 13:37 Aspirin 325 mg ONCE ONCE PO 12/27/24 13:30 12/27/24 13:31 DC 12/27/24 13:37 Time of 1ST Reevaluation: 13:26 Reevaluation 1ST: Unchanged Patient Education/Counseling: Diagnosis, Treatment, Prognosis Family Education/Counseling: No Family Present Sepsis focused exam: focus exam completed, time: (1500) Departure 1 Departure Time of Disposition: 15:55 Impression: Primary Impression: CAD (coronary artery disease) Additional Impressions: Acute coronary syndrome Asthma exacerbation Disposition: 09 ADMITTED INPATIENT Admit to: Tele Condition: Guarded Discharged With: Self Comments Shortness of Breath with Elevated Troponin Chief Complaint: Shortness of breath History of Present Illness: 74-year-old male presents with shortness of breath for the past two days. Patient was initially evaluated at urgent care where lab work revealed elevated troponin levels, prompting transfer to the emergency department. Patient specifically denies chest pain. Initial and repeat troponin levels were significantly elevated at 341. Patient has relevant past medical history of asthma/COPD, hypertension, and coronary artery disease. Review of Systems: Respiratory: Positive for shortness of breath Cardiovascular: Denies chest pain All other systems reviewed and negative Past Medical History: 1. Asthma/COPD 2. Hypertension 3. Coronary Artery Disease Past Surgical History: No surgical history documented Social History: Social history not documented Family History: Family history not documented Vital Signs: No vital signs documented Physical Exam: Physical examination findings not documented Lab Results: Troponin: 341 (Elevated) Repeat Troponin: 341 (Elevated) Imaging and Other Relevant Results: Chest X-ray: No acute pathology Medical Decision Making: Summary Statement: 74-year-old male with history of CAD, asthma/COPD presenting with SOB and significantly elevated troponin levels requiring further evaluation and management. Problem List: 1. Acute Coronary Syndrome 2. COPD/Asthma Exacerbation with Respiratory Failure Differential Diagnosis: 1. NSTEMI 2. COPD Exacerbation 3. Acute Heart Failure 4. Pulmonary Embolism ED Course: Patient evaluated in ED after urgent care visit showed elevated troponins. Case discussed with [facility], authorization received (Auth#[id number]) for admission to [facility]. Assessment and Plan: 1. Acute Coronary Syndrome - Elevated troponin levels indicating ongoing myocardial injury - Admit to hospital for further cardiac workup and management 2. COPD/Asthma Exacerbation with Respiratory Failure - Continue respiratory support and monitoring - Initiate appropriate bronchodilator therapy Disposition: Admit to [facility] Authorization Number: [id number] Billing Information: ICD-10: I21.4 - Non-ST elevation myocardial infarction ICD-10: J44.1 - COPD with acute exacerbation ICD-10: J96.00 - Acute respiratory failure Critical Care Note Critical Care Time?: Yes (35 min-critical care time only) Critical care comment: Total critical care time: Approximately 36 minutes Due to a high probability of clinically significant, life threatening deterioration, the patient required my highest level of preparedness to intervene emergently and I personally spent this critical care time directly and personally managing the patient. This critical care time included obtaining a history; examining the patient; pulse oximetry; ordering and review of studies; arranging urgent treatment with development of a management plan; evaluation of patient's response to treatment; frequent reassessment; and, discussions with other providers. This critical care time was performed to assess and manage the high probability of imminent, life-threatening deterioration that could result in multi-organ failure. It was exclusive of separately billable procedures and treating other patients. Stability Stability form required: No Heart Score Heart Score: Heart Score Response (Comments) Value History Moderate Suspicious 1 EKG Repolarization Disturb 1 Age >65 2 Risk Factors 1 or 2 risk factors 1 Troponin >3 x's Normal limit 2 Total 7 I personally scribed for BERNIE DORSEY MD ([email or web address]) on 12/27/24 at 13:31. Electronically submitted by Nohemi Vizcarra ([facility]). BERNIE DORSEY MD Dec 27, 2024 13:31
[2024-12-27 13:35] VITALS: PULSE 73; RESP 16; O2SAT 100
[2024-12-27] MEDS: methylPREDNISolone SOD SUCC 125 MG/2 ML VL IV ONE (13:37)
[2024-12-27] MEDS: IPRATROPIUM BROM 0.5 MG/2.5ML INH SOL HHN ONE (13:37)
[2024-12-27] MEDS: ASPirin 325 MG TAB PO ONE (13:37)
[2024-12-27] MEDS: ALBUTEROL SULF 2.5 MG/0.5ML(0.5%) NEB SOLN HHN ONE (13:40)
--- NOTE | 2024-12-27 13:56 | DVH ---
EXAM: XY CHEST PORTABLE TECHNIQUE: Single frontal chest radiograph CLINICAL HISTORY: SOB COMPARISON: XY CHEST PORTABLE on DOS: 05/03/23, XY CHEST PORTABLE on DOS: 04/18/23, XY CHEST PORTABLE on DOS: 12/18/22 Findings/Impression: Frontal chest radiograph demonstrates no acute osseous or superficial soft tissue abnormalities. The trachea is midline. The cardiac silhouette and mediastinum are within normal limits. No pneumothorax, pleural effusions, or consolidations.
[2024-12-27 14:33] LABS: Basophils # (auto) 0.1 10 ^3/uL (0-0.2); Basophils % (auto) 0.8 % (0.0-2.0); Eosinophils # (auto) 0.3 10 ^3/uL (0-0.8); Eosinophils % (auto) 4.4 % (0.0-7.0); Hematocrit 40.7 % (41.0-53.0); Hemoglobin 13.2 g/dL (13.5-17.5); Lymphocytes # (auto) 1.4 10 ^3/uL (0.4-5.4); Lymphocytes % (auto) 18.3 % (10.0-50.0); Mean Corpuscular Hgb Conc. 32.4 g/dL (32.0-36.0); Mean Corpuscular Volume 83.3 fL (80.0-100.0); Monocytes # (auto) 0.9 10 ^3/uL (0-1.3); Monocytes % (auto) 12.1 % (0.0-12.0); Neutrophils # (auto) 4.9 10 ^3/uL (1.6-8.6); Neutrophils % (auto) 64.4 % (37.0-80.0); Platelet Count (auto) 252 10^3/uL (140-450); Red Blood Cells 4.89 10^6/uL (4.5-5.90); Red Cell Distribution Width 16.6 % (11.8-14.3); White Blood Cell 7.7 10^3/uL (4.4-10.8)
[2024-12-27 14:37] LABS: Alkaline Phosphatase 95 U/L (46-116); Calcium 9.9 mg/dL (8.7-10.4); Carbon Dioxide 31 mmol/L (20-31); Chloride 105 mmol/L (98-107)
[2024-12-27 14:38] LABS: Albumin 4.4 g/dL (3.2-4.8); Anion Gap 8 (5-15); Aspartate Aminotransferase 27 U/L (13-40); BUN/Creatinine Ratio 13.4 (10.0-20.0); Bilirubin, Total 0.5 mg/dL (0.2-1.0); Blood Urea Nitrogen 15 mg/dL (9-23); Sodium 144 mmol/L (136-145); Total Protein 6.8 g/dL (5.7-8.2)
[2024-12-27 14:41] LABS: Alanine Aminotransferase 51 U/L (7-40); Glucose 48 mg/dL (74-106)
[2024-12-27] MEDS: NITROGLYCERIN 2% OINT 1GM PKG TD ONE (18:20)
[2024-12-27 19:39] VITALS: PULSE 88; RESP 24; O2SAT 91
[2024-12-27] MEDS ORDERED: ONDANSETRON HCL 4 MG/2 ML VIAL IV PRN (23:15)
--- NOTE | 2024-12-27 23:38 | DVHHPRES ---
History of Present Illness Resident Creating Document: MJ KLEIN RESIDENT Reason for Visit: COPD exacerbation History of Present Illness This is a 74-year-old male with a past medical history of CABG ( 2017), COPD asthma CHF CAD and hyperlipidemia presented to the ED via EMS with one-week history of cough and shortness of breaths. According to the patient, he uses his inhaler at home.However, this past week, despite using the inhaler he was still short of breath and also had sputum was whitish phlegm. He first reported to a [place] urgent care today Chest x- ray done unremarkable,but blood work showed elevated troponin levels. Thus patient was sent to the ED for higher level of care. Patient mentioned that he earlier had substernal chest tightness that was nonradiating and constant with no alleviating or precipitating factors. But at the time of interaction, chest pain had subsided. Patient denies any nausea, vomiting, diarrhea, fever, chills, back pain, recent illness or sick contact exposure. Patient also denies having any home oxygen. Patient overall, feels well. However, given the underlying cardiac history and elevated troponin, I will admit patient and have a follow up with the data collection technician. PMHX: Asthma, CAD, CHF, COPD, Depression, DM, GERD, High Lipids, HTN, [place], former smoker Surgical History: CABG 2017, Cholecystectomy, PTCA, Tonsillectomy Family History: Family hx of DM Social History: Former smoker, Marijuana Review of Systems Allergies: Coded Allergies: Lisinopril (Verified Allergy, Unknown, 05/23/15) Sulfa Antibiotics (Verified Allergy, Unknown, 03/26/17) Exam Vital Signs Vital Signs Date Time Temp Pulse Resp B/P (MAP) Pulse Ox O2 Delivery O2 Flow Rate FiO2 12/27/24 21:17 86 19 116/62 (80) 91 12/27/24 19:39 Room Air* 0 21 12/27/24 19:39 98.3 98.3 Exam General Appearance: Alert, Oriented X3, Cooperative, mild shortness of breath, Sp O2 sat 89%-92% HEENT: Atraumatic, PERRLA, EOMI, Mucous membrane moist/pink Respiratory: Clear to auscultation, Normal air movement Cardiovascular: CABG scars noted, irregular irregular, Normal S1, Normal S2, No murmurs, no chest wall tenderness Abdominal: NO distention, no tenderness, bowel sounds present, no scars noted Extremities: No clubbing, No cyanosis, No edema, Normal pulses, No tenderness/swelling Skin: bruising on his arm from his dog scratching. No significant lesion Neuro: Normal gait, Normal speech, Strength at 5/5 X4 ext, Normal tone, Sensation intact, Cranial nerves 3-12 NL, Reflexes 2+ Psych/Mental Status: Mental status NL, Mood NL Labs/Xrays Labs Test 12/27/24 16:26 12/27/24 14:11 12/27/24 13:36 Range/Units Lactic Acid Level 2.0 0.4-2.0 mmol/L Troponin I High Sensitivity 317 *H </=54 ng/L POC Glucose 82 70-106 mg/dl White Blood Count 7.7 4.4-10.8 10^3/uL Red Blood Count 4.89 4.5-5.90 10^6/uL Hemoglobin 13.2 L 13.5-17.5 g/dL Hematocrit 40.7 L 41.0-53.0 % Mean Corpuscular Volume 83.3 80.0-100.0 fL Mean Corpuscular Hemoglobin 27.0 L 28.0-32.0 pg Mean Corpuscular Hemoglobin Concent 32.4 32.0-36.0 g/dL Red Cell Distribution Width 16.6 H 11.8-14.3 % Platelet Count 252 140-450 10^3/uL Mean Platelet Volume 7.6 6.9-10.8 fL Neutrophils (%) (Auto) 64.4 37.0-80.0 % Lymphocytes (%) (Auto) 18.3 10.0-50.0 % Monocytes (%) (Auto) 12.1 H 0.0-12.0 % Eosinophils (%) (Auto) 4.4 0.0-7.0 % Basophils (%) (Auto) 0.8 0.0-2.0 % Neutrophils # (Auto) 4.9 1.6-8.6 10 ^3/uL Lymphocytes # (Auto) 1.4 0.4-5.4 10 ^3/uL Monocytes # (Auto) 0.9 0-1.3 10 ^3/uL Eosinophils # (Auto) 0.3 0-0.8 10 ^3/uL Basophils # (Auto) 0.1 0-0.2 10 ^3/uL Nucleated Red Blood Cells 0.0 % Sodium Level 144 136-145 mmol/L Potassium Level 5.0 3.5-5.1 mmol/L Chloride Level 105 98-107 mmol/L Carbon Dioxide Level 31 20-31 mmol/L Anion Gap 8 5-15 Blood Urea Nitrogen 15 9-23 mg/dL Creatinine 1.12 0.700-1.30 mg/dL Glomerular Filtration Rate Calc 69 >90 mL/min BUN/Creatinine Ratio 13.4 10.0-20.0 Serum Glucose 48 *L 74-106 mg/dL Calcium Level 9.9 8.7-10.4 mg/dL Total Bilirubin 0.5 0.2-1.0 mg/dL Aspartate Amino Transferase (AST) 27 13-40 U/L Alanine Aminotransferase (ALT) 51 H 7-40 U/L Alkaline Phosphatase 95 46-116 U/L B-Type Natriuretic Peptide 909.85 0-100 pg/mL Total Protein 6.8 5.7-8.2 g/dL Albumin 4.4 3.2-4.8 g/dL Assessment/Plan Assessment/Plan ASSESSMENT COPD exacerbation Chest pain, rule out ACS Elevated troponin, likely NSTEMI type II PVC Left Ventricular hypertrophy on EKG Congestive heart failure, pending Echo AFIB Asthma Depression, Uncontrolled DM, Hgb 1 AC 10.6 GERD, Hyperlipidemia HTN [place], History of 2 vessel CABG Lactic acidosis PLAN Antibiotic ( levofloxacin daily) Breathing treatment (albuterol and Ipratropium) Methylprednisolone Atorvastatin 80mg now and daily Aspirin 81 mg Diabetic education/counseling Cardiology consult Get an Echo, no record of recent ECHO Resume relevant home medications DVT prophylasix: already on dabigatran Diet: NPO, in case cardiology want take him for tender labor Goal of care discussed for more than 30 minutes: DNR Case and plan discussed with Dr. Irizarry NOTE: At about 5:45am, patient started complaining of chest pain, troponin rasing and ekg showing ST depression. Placed a called to the Dr. Jose ( solids control technician cardiology). It went to his answering service and I left a message. Plan discussed with: Patient My Orders Orders - MJ KLEIN RESIDENT Procedure Category Date Status Time Admit ADMIT 12/27/24 Verified 23:15 Code Status CODE 12/27/24 Verified 23:15 Vital Signs VIBHA 12/27/24 Verified 23:15 Review Orders With [facility] 12/27/24 Verified Adm. 23:15 Npo (Nothing By DIET 12/28/24 Verified Mouth) Diet Breakfast Notify Md Of Changes [facility] 12/27/24 Verified From Base 23:15 Advance Directive [facility] 12/27/24 Verified 23:15 Echo 2d Mode Cardiac US 12/27/24 Verified DOP 23:15 Patient Condition ORDERS 12/27/24 Verified 23:15 Allergies [facility] 12/27/24 Verified 23:15 Ondansetron Hcl PHA 12/27/24 Verified (Zofran) 23:15 Hemoglobin A1c LAB 12/27/24 Verified 23:15 Morphine 2mg Iv Q4hprn PHA 12/27/24 Verified 23:15 Oxygen By Nasal RT 12/27/24 Verified Cannula 23:15 Notify Of Changes [facility] 12/27/24 Verified From Base 23:15 Employment Clerk For [facility] 12/27/24 Verified 24 Hours 23:15 Troponin-I Hs LAB 12/27/24 Verified 23:15 Drug Screen LAB 12/27/24 Verified 23:15 Troponin-I Hs LAB 12/28/24 Verified 00:15 Troponin-I Hs LAB 12/28/24 Verified 02:15 Albuterol Medneb PHA 12/27/24 Verified (Ventolin Medneb) 23:15 Date of Service: Dec 27, 2024 Billing Provider: RADHA IRIZARRY MD Common Visit Codes: [id number]-[id number] INP/OBS CARE (HIGH) Secondary Visit Codes: [id number] CARE PLAN 30 MINUTES MJ KLEIN RESIDENT Dec 27, 2024 23:38 RADHA IRIZARRY MD Dec 28, 2024 11:24
[2024-12-27 23:48] VITALS: BP 106/62; PULSE 86; RESP 19; TEMP 98.3; O2SAT 94
[2024-12-28] VITALS (16 sets, daily range): BP systolic 116–149; BP diastolic 70–82; PULSE 84–100; RESP 18–20; TEMP 98–98.8; O2SAT 92–98
[2024-12-28 01:20] LABS: COVID19 ANTIGEN SOFIA FIA NEGATIVE (NEGATIVE); Rapid Influenza A Negative (Negative); Rapid Influenza B Negative (Negative)
[2024-12-28] MEDS ORDERED: DEXTROSE (50%) 50ML SYRG IV PRN (03:30)
[2024-12-28] MEDS ORDERED: PANT40T PO (03:52)
[2024-12-28] MEDS ORDERED: FLUO10TA18 PO (03:52)
[2024-12-28] MEDS ORDERED: DABI150C7 PO (03:52)
[2024-12-28] MEDS: ALBUTEROL SULF 2.5 MG/0.5ML(0.5%) NEB SOLN NEB PRN (03:58)
[2024-12-28] MEDS: IPRATROPIUM BROM 0.5 MG/2.5ML INH SOL NEB PRN (03:58)
[2024-12-28] MEDS: ASPirin 81 mg TAB PO ONE (04:03)
[2024-12-28] MEDS: ATORVASTATIN 20 MG TAB PO ONE (04:04)
[2024-12-28] MEDS: MORPHINE SULFATE INJ 2 MG/ml SYRG IV PRN (05:19)
[2024-12-28] MEDS ORDERED: ATORVASTATIN 20 MG TAB PO ONE (05:45)
[2024-12-28] MEDS ORDERED: NITROGLYCERIN 0.4 MG SL TAB SL PRN (05:45)
[2024-12-28] MEDS: InsuLIN REG 1unit/0.01ml Soln (100units/ml) SC SCH (06:07)
[2024-12-28] MEDS: NITROGLYCERIN 0.4 MG SL TAB SL ONE (06:09)
[2024-12-28] MEDS: ASPirin 325 MG TAB PO ONE (06:17)
[2024-12-28] MEDS: ACCU-CHEK COMFORT CURVE STRIP VI SCH (06:17)
[2024-12-28] MEDS ORDERED: Fenofibrate 160 MG PO SCH (10:00)
[2024-12-28] MEDS ORDERED: FLUTICASONE SALMETEROL IN SCH (10:00)
[2024-12-28] MEDS ORDERED: DABIGATRAN 75 MG CAP PO SCH (10:00)
--- NOTE | 2024-12-28 10:18 | DVHINCON2 ---
Date of service: Dec 28, 2024 History of Present Illness 74 yo M with hx of cad s/p PTCA with me 2017, hx of cabg (presumably 2v 2016), pAF on pradaxa, htn, copd comes in for sob and chest pain. trops are mild el evated. ecg shows lateral ST depressions with mild inferior changes. Past Medical History reviewed Family History: Child of patient 19 CHILD 19 CHILD Diabetes mellitus G8 MOTHER FH: leukemia 19 CHILD FH: lung cancer G8 FATHER Allergies: Coded Allergies: Lisinopril (Verified Allergy, Unknown, 05/23/15) Sulfa Antibiotics (Verified Allergy, Unknown, 03/26/17) Home Meds Active Scripts Ergocalciferol (VITAMIN D 66300 UNIT) 50,000 [place], [address] UNIT PO Q7D for 10 Days, #10 CAP Prov:RADHA VELÁSQUEZ MD 12/22/21 Pancreatic Enzymes (Zenpep 5000-17298 Unit) 1 Cap Cap, 1 CAP PO TID, #30 CAP Prov:MATILDA FLORES 12/20/21 Insulin Lispro (Humalog Kwikpen) 100 Unit/Ml Inj, 0 SC UD, #30 INJ PER SLIDING SCALE Prov:MATILDA FLORES 12/20/21 Fluticasone-Salmeterol (Wixela Inhub 250-50 Mcg/Dose) 1 Aer Aer, 1 PUFF IN BID, #30 AER Prov:MATILDA FLORES 12/20/21 Albuterol Sulfate (Albuterol Sulfate Hfa) 108 Mcg/Act Aer, 2 PUFF IN Q4-6HPRN, #30 AER Prov:MATILDA FLORES 12/20/21 Reported Medications Hydrocodone-Acetaminophen (Hydrocodone Bitartrate/AC 5-325 mg) 1 Tab Tab, 1 TAB PO Q4HPRN PRN 12/28/24 Fluoxetine Hcl (Fluoxetine Hcl) 10 Mg Tab, 1 CAP PO DAILY 12/28/24 Dabigatran Etexilate Mesylate (Dabigatran Etexilate) 150 Mg Cap, 150 CAP PO 12/28/24 Pantoprazole Sodium Sesquihydr (Pantoprazole Sodium) 40 Mg Tab, 1 TAB PO DAILY 12/28/24 Fluoxetine Hcl (Fluoxetine Hcl) 20 Mg Cap, 20 MG PO DAILY for 30 Days, MG 10/12/22 Bupropion Hcl (Bupropion Hcl) 100 Mg Tab, 100 MG PO DAILY for 30 Days, MG 10/12/22 Pantoprazole Sodium Sesquihydr (Protonix) 40 Mg Tab, 40 MG PO DAILY, #30 TAB 12/19/21 Furosemide (Furosemide) 20 Mg Tab, 20 MG PO DAILY, TAB 12/19/21 Lamotrigine (Lamotrigine) 100 Mg Tab, 25 MG PO DAILY, TAB 12/19/21 Potassium Chloride (POTASSIUM CHLORIDE CR) 10 Meq Tb, 1 TAB PO DAILY, #30 TAB 5 Refills 12/19/21 Dabigatran Etexilate Mesylate (Pradaxa) 150 Mg Cap, 150 MG PO BID, CAP 12/19/21 Gabapentin (Gabapentin) 300 Mg Cap, 300 MG PO QPM for 30 Days, MG 12/19/21 Bisoprolol Fumarate (Bisoprolol Fumarate) 5 Mg Tab, 10 MG PO DAILY, TAB 12/19/21 Mirtazapine (REMERON) 30 Mg Tab, 15 MG PO BID, TAB 03/26/17 Quetiapine Fumerate (QUETIAPINE FUMARATE) 100 Mg Tab, 100 MG PO TID for 30 Days, MG 03/26/17 Fenofibrate (Fenofibrate) 160 Mg Tab, 1 TAB PO DAILY, #90 TAB 3 Refills 03/26/17 Current Medications Current Medications Medications (Trade) Dose Ordered Sig/Nazario Route PRN Reason Start Time Stop Time Status Last Admin Ondansetron HCl (Zofran) 4 mg Q4HP PRN IV NAUSEA / VOMITING 12/27/24 23:15 Morphine Sulfate 2 mg Q4HPRN PRN IV SEVERE PAIN (7-10 PAIN SCALE) 12/27/24 23:15 12/28/24 05:19 Albuterol (Ventolin Medneb) 2.5 mg Q4HPRN PRN NEB SHORTNESS OF BREATH 12/27/24 23:15 12/28/24 03:58 Ipratropium Denniston (Atrovent Medneb) 0.5 mg Q4HPRN PRN NEB SHORTNESS OF BREATH 12/27/24 23:15 12/28/24 03:58 Levofloxacin/ Dextrose 100 ml @ 100 mls/hr DAILY IV 12/28/24 10:00 Aspirin 81 mg DAILY PO 12/29/24 10:00 Atorvastatin Calcium (Lipitor) 80 mg HS PO 12/28/24 22:00 Diagnostic Test (Pha) (Accu-Chek Comfort Curve T) 1 strip ACHS 12/28/24 07:00 12/28/24 06:17 Insulin Human Regular (InsuLIN R) ACHS SC 12/28/24 07:00 12/28/24 06:07 Dextrose 50 ml UD PRN IV Blood Sugar LESS THAN 60 12/28/24 03:30 Fluoxetine HCl (PROzac CAPSULE) 20 mg DAILY PO 12/28/24 10:00 Gabapentin (Neurontin Capsule) 300 mg QPM PO 12/28/24 18:00 Lamotrigine (LaMICtal TABLET) 25 mg DAILY PO 12/28/24 10:00 Pantoprazole Sodium (Protonix Tablet) 40 mg DAILY PO 12/28/24 10:00 Dabigatran (Pradaxa Capsule) 150 mg BID PO 12/28/24 10:00 12/28/24 07:46 DC Patient Own Medication 1 tab DAILY PO 12/28/24 10:00 12/28/24 09:17 DC Patient Own Medication 1 puff BID IN 12/28/24 10:00 12/28/24 09:17 DC Patient Own Medication 1 cap TID PO 12/28/24 06:00 Nitroglycerin (Ntrostat Sublingual) 0.4 mg Q5MINP PRN SL FOR CHEST PAIN 12/28/24 05:45 Atorvastatin Calcium (Lipitor) 80 mg HS PO 12/28/24 22:00 UNV Patient Own Medication 150 BID PO 12/28/24 10:00 Review of Systems 10 pt ros otherwise negative Vital Signs Vital Signs Date Time Temp Pulse Resp B/P (MAP) Pulse Ox O2 Delivery O2 Flow Rate FiO2 12/28/24 08:40 98.0 99 18 149/82 (104) 95 98.0 12/28/24 08:00 Room Air* 0 21 Physical Exam nad s1 s2 rrr ctab soft nt/nd no edema Labs/Diagnostic Data Labs Test 12/28/24 05:59 12/28/24 02:42 12/27/24 23:57 12/27/24 23:48 Range/Units POC Glucose 380 H 70-106 mg/dl Troponin I High Sensitivity 260 *H </=54 ng/L Beta-Hydroxybutyric Acid 0.386 < 0.4 mmol/L Influenza Type A Antigen Negative Negative Influenza Type B Antigen Negative Negative SARS-CoV-2 Antigen (Rapid) Negative NEGATIVE Hemoglobin A1c 10.6 H <5.7 % A1C Test 12/27/24 16:26 12/27/24 13:36 Range/Units Lactic Acid Level 2.0 0.4-2.0 mmol/L White Blood Count 7.7 4.4-10.8 10^3/uL Red Blood Count 4.89 4.5-5.90 10^6/uL Hemoglobin 13.2 L 13.5-17.5 g/dL Hematocrit 40.7 L 41.0-53.0 % Mean Corpuscular Volume 83.3 80.0-100.0 fL Mean Corpuscular Hemoglobin 27.0 L 28.0-32.0 pg Mean Corpuscular Hemoglobin Concent 32.4 32.0-36.0 g/dL Red Cell Distribution Width 16.6 H 11.8-14.3 % Platelet Count 252 140-450 10^3/uL Mean Platelet Volume 7.6 6.9-10.8 fL Neutrophils (%) (Auto) 64.4 37.0-80.0 % Lymphocytes (%) (Auto) 18.3 10.0-50.0 % Monocytes (%) (Auto) 12.1 H 0.0-12.0 % Eosinophils (%) (Auto) 4.4 0.0-7.0 % Basophils (%) (Auto) 0.8 0.0-2.0 % Neutrophils # (Auto) 4.9 1.6-8.6 10 ^3/uL Lymphocytes # (Auto) 1.4 0.4-5.4 10 ^3/uL Monocytes # (Auto) 0.9 0-1.3 10 ^3/uL Eosinophils # (Auto) 0.3 0-0.8 10 ^3/uL Basophils # (Auto) 0.1 0-0.2 10 ^3/uL Nucleated Red Blood Cells 0.0 % Sodium Level 144 136-145 mmol/L Potassium Level 5.0 3.5-5.1 mmol/L Chloride Level 105 98-107 mmol/L Carbon Dioxide Level 31 20-31 mmol/L Anion Gap 8 5-15 Blood Urea Nitrogen 15 9-23 mg/dL Creatinine 1.12 0.700-1.30 mg/dL Glomerular Filtration Rate Calc 69 >90 mL/min BUN/Creatinine Ratio 13.4 10.0-20.0 Serum Glucose 48 *L 74-106 mg/dL Calcium Level 9.9 8.7-10.4 mg/dL Total Bilirubin 0.5 0.2-1.0 mg/dL Aspartate Amino Transferase (AST) 27 13-40 U/L Alanine Aminotransferase (ALT) 51 H 7-40 U/L Alkaline Phosphatase 95 46-116 U/L B-Type Natriuretic Peptide 909.85 0-100 pg/mL Total Protein 6.8 5.7-8.2 g/dL Albumin 4.4 3.2-4.8 g/dL Assessment ACS/nstemi hx of cad s/p cabg copd htn hl personally reviewed my [facility] films on him, very severely calcific rca and lad, likely has angina in this territory inferior recommemd medical therapy after informed consent as per pt request given his comorbidities, high risk for invasive eval start ranexa 500 mg po bid cont his bisoprolol start isosorbide 20 mg bid cont pradaxa for pAF check echo [facility] Plan discussed with: Patient KANNAN ARAIZA MD Dec 28, 2024 10:18
[2024-12-28] MEDS: OPTISON 3ml Vial for INJ IV ONE (10:59)
[2024-12-28] MEDS: levoFLOXacin 500MG 100 ML IV SCH (11:03)
[2024-12-28] MEDS: FLUoxetine HCL 20 MG CAP PO SCH (11:04)
[2024-12-28] MEDS: ISOSORBIDE MONONITRATE 20 MG TAB PO SCH (11:04)
[2024-12-28] MEDS: PANTOPRAZOLE 40 MG TAB PO SCH (11:04)
[2024-12-28] MEDS: lamoTRIgine 100 MG TAB PO SCH (11:05)
[2024-12-28] MEDS: RANOLAZINE ER 500 MG TAB PO SCH (11:05)
[2024-12-28 11:30] LABS: Basophils # (auto) 0.1 10 ^3/uL (0-0.2); Basophils % (auto) 0.5 % (0.0-2.0); Eosinophils # (auto) 0 10 ^3/uL (0-0.8); Eosinophils % (auto) 0.2 % (0.0-7.0); Hematocrit 39.8 % (41.0-53.0); Hemoglobin 13.1 g/dL (13.5-17.5); Lymphocytes # (auto) 1.4 10 ^3/uL (0.4-5.4); Lymphocytes % (auto) 9.8 % (10.0-50.0); Mean Corpuscular Hemoglobin 27.1 pg (28.0-32.0); Mean Corpuscular Hgb Conc. 32.8 g/dL (32.0-36.0); Mean Corpuscular Volume 82.6 fL (80.0-100.0); Monocytes # (auto) 1.6 10 ^3/uL (0-1.3); Neutrophils # (auto) 11.3 10 ^3/uL (1.6-8.6); Neutrophils % (auto) 78.5 % (37.0-80.0); Platelet Count (auto) 268 10^3/uL (140-450); Red Blood Cells 4.81 10^6/uL (4.5-5.90); Red Cell Distribution Width 16.6 % (11.8-14.3); White Blood Cell 14.4 10^3/uL (4.4-10.8)
[2024-12-28 11:52] LABS: Alanine Aminotransferase 36 U/L (7-40); Albumin 4.2 g/dL (3.2-4.8); Alkaline Phosphatase 82 U/L (46-116); Anion Gap 9 (5-15); Aspartate Aminotransferase 36 U/L (13-40); BUN/Creatinine Ratio 19.2 (10.0-20.0); Carbon Dioxide 25 mmol/L (20-31); Chloride 107 mmol/L (98-107); Potassium 4.2 mmol/L (3.5-5.1); Sodium 141 mmol/L (136-145); Total Protein 6.7 g/dL (5.7-8.2)
[2024-12-28 11:53] LABS: Bilirubin, Total 0.6 mg/dL (0.2-1.0)
[2024-12-28 11:56] LABS: Blood Urea Nitrogen 24 mg/dL (9-23); Glucose 262 mg/dL (74-106)
--- NOTE | 2024-12-28 12:50 | DVHPN2 ---
Progress Note Date Seen: Dec 28, 2024 Medical Necessity Reason Pt with a Central, PICC or Fol: No Subjective Patient reports: No new complaints Review of Systems: HEENT:Normal, CVS:Normal, RESPIRATORY:Normal, GI:Normal, :Normal, MSK:Normal, NEURO:Normal Objective vital signs Vital Sign Date Time Temp Pulse Resp B/P (MAP) Pulse Ox O2 Delivery O2 Flow Rate FiO2 12/28/24 12:46 98.7 93 18 131/71 (91) 94 98.7 12/28/24 08:00 Room Air* 0 21 Total Intake and Output 12/27/24 12/27/24 12/28/24 15:00 23:00 07:00 Intake Total 100 ml Balance 100 ml medications Current Medications Medications Dose Ordered Sig/Nazario Route Start Time Stop Time Status Last Admin Dose Admin Ondansetron HCl 4 mg Q4HP PRN IV 12/27/24 23:15 Morphine Sulfate 2 mg Q4HPRN PRN IV 12/27/24 23:15 12/28/24 05:19 2 MG Albuterol 2.5 mg Q4HPRN PRN NEB 12/27/24 23:15 12/28/24 03:58 2.5 MG Ipratropium Elrod 0.5 mg Q4HPRN PRN NEB 12/27/24 23:15 12/28/24 03:58 0.5 MG Levofloxacin/ Dextrose 100 ml @ 100 mls/hr DAILY IV 12/28/24 10:00 12/28/24 11:03 100 MLS/HR Aspirin 81 mg DAILY PO 12/29/24 10:00 Atorvastatin Calcium 80 mg HS PO 12/28/24 22:00 Diagnostic Test (Pha) 1 strip ACHS 12/28/24 07:00 12/28/24 11:23 1 STRIP Insulin Human Regular ACHS SC 12/28/24 07:00 12/28/24 11:49 4 UNITS Dextrose 50 ml UD PRN IV 12/28/24 03:30 Fluoxetine HCl 20 mg DAILY PO 12/28/24 10:00 12/28/24 11:04 20 MG Gabapentin 300 mg QPM PO 12/28/24 18:00 Lamotrigine 25 mg DAILY PO 12/28/24 10:00 12/28/24 11:05 25 MG Pantoprazole Sodium 40 mg DAILY PO 12/28/24 10:00 12/28/24 11:04 40 MG Patient Own Medication 1 cap TID PO 12/28/24 06:00 Nitroglycerin 0.4 mg Q5MINP PRN SL 12/28/24 05:45 Atorvastatin Calcium 80 mg HS PO 12/28/24 22:00 UNV Ranolazine 500 mg BID PO 12/28/24 10:15 12/28/24 11:05 500 MG Isosorbide Mononitrate 20 mg BID PO 12/28/24 10:15 12/28/24 11:04 20 MG Dabigatran 150 mg BID PO 12/28/24 22:00 UNV Bupropion HCl 75 mg BID@07,19 PO 12/28/24 19:00 UNV Examination: GENERAL:Normal, HEENT:Normal, NECK:Normal, LUNGS:Normal, CVS:Normal, ABDOMEN:Normal, MSK:Normal, SKIN:Normal, NEURO:Normal, :Normal laboratory and microbiology Laboratory Tests 12/28/24 11:00 Test 12/28/24 11:00 Range/Units Serum Glucose 262 #H 74-106 mg/dL Problem List/Assessment/Plan Problem List/Assessment/Plan #1 chest pain with nstemi; dw dr Jose, try medical treatment for now #2 cad s/p cabg #3 copd #4 dm: ssi #5 ?acute on chronic systolic heart failure #6 anxiety #7 a fib with secondary hypercoagulable state: on pradaxa #8 hyperlipidemia advance care planning- dnr status- time spent 21 mins Plan discussed with: Patient My Orders My Orders Orders - MAHSA PERDOMO MD Procedure Category Date Status Time Dabigatran Capsule PHA 12/28/24 Logged (Pradaxa Capsule) 22:00 Urinalysis LAB 12/28/24 Uncollected 12:40 Consistent DIET 12/28/24 Transmitted Carb(Ccho)Diabetes Lunch Bupropion Tablet PHA 12/28/24 Logged (Wellbutrin Tablet) 19:00 Basic Metabolic Panel LAB 12/29/24 Verified 06:00 Magnesium LAB 12/29/24 Verified 05:00 Chest Portable XY 12/29/24 Logged 06:00 Furosemide Tablet PHA 12/28/24 Verified (Lasix Tablet) 13:00 Furosemide Tablet PHA 12/29/24 Verified (Lasix Tablet) 10:00 Date of Service: Dec 28, 2024 Billing Provider: MAHSA PERDOMO MD Common Visit Codes: [id number] INP/OBS CARE(HIGH) Secondary Visit Codes: [id number] CARE PLAN 30 MINUTES MAHSA PERDOMO MD Dec 28, 2024 12:50
[2024-12-28] MEDS: PANCREATIC ENZYMES PO SCH (14:00)
[2024-12-28] MEDS: FUROSEMIDE 20 MG TAB PO ONE (15:49)
[2024-12-28] MEDS: buPROPion HCL 75 MG TAB PO SCH (17:53)
[2024-12-28] MEDS: GABAPENTIN 300 MG CAP PO SCH (17:53)
[2024-12-28] MEDS ORDERED: ATORVASTATIN 20 MG TAB PO SCH (22:00)
[2024-12-28] MEDS: ATORVASTATIN 20 MG TAB PO SCH (22:02)
[2024-12-28] MEDS: DABIGATRAN 75 MG CAP PO SCH (22:03)
[2024-12-29] VITALS (11 sets, daily range): BP systolic 124–140; BP diastolic 70–87; PULSE 79–92; RESP 14–20; TEMP 97.5–98.3; O2SAT 92–99
[2024-12-29 06:40] LABS: Chloride 104 mmol/L (98-107); Potassium 4.4 mmol/L (3.5-5.1); Sodium 138 mmol/L (136-145)
[2024-12-29 06:41] LABS: Anion Gap 11 (5-15); Calcium 9.6 mg/dL (8.7-10.4); Carbon Dioxide 23 mmol/L (20-31)
[2024-12-29 06:46] LABS: BUN/Creatinine Ratio 16.3 (10.0-20.0); Blood Urea Nitrogen 20 mg/dL (9-23); Glucose 192 mg/dL (74-106)
[2024-12-29 06:47] LABS: Magnesium 2.1 mg/dL (1.6-2.6)
--- NOTE | 2024-12-29 06:57 | DVH ---
EXAM: XR Chest, 1 View CLINICAL INDICATION: CHF TECHNIQUE: Frontal view of the chest. COMPARISON: XY CHEST PORTABLE on DOS: 12/27/24, XY CHEST PORTABLE on DOS: 05/03/23, XY CHEST PORTABLE on DOS: 04/18/23, XY CHEST PORTABLE on DOS: 12/18/22, CXRP on DOS: 10/10/22 FINDINGS: LUNGS AND PLEURAL SPACES: Unremarkable. No consolidation. No pneumothorax. HEART: Unremarkable. No cardiomegaly. MEDIASTINUM: Unremarkable. Normal mediastinal contour. BONES/JOINTS: Unremarkable. No acute fracture. OTHER FINDINGS: . None. IMPRESSION: No acute cardiopulmonary process.
--- NOTE | 2024-12-29 07:46 | DVHSR ---
APPROVED REPORT EXAM: Two-dimensional and M-mode echocardiogram with Doppler, color Doppler and Optison. Blood Pressure: 136/70 mmHg INDICATION Dyspnea RISK FACTORS Height: 5'11", Weight: 165 DIMENSIONS LVDd4.5 (3.8-5.7cm)LA (2D)4.4 (1.9-4.0cm)Aortic Root (2.0-3.7cm) LVDs3.2 (2.5-4.0cm)LA (MM) (1.9-4.0cm)Aortic Cusp Exc (1.5-2.0cm) EF (%) 50.0 (55-70%)Rt. Atrium3.7 (1.9-4.0cm)Asc. Aorta cm IVSd1.1 (0.7-1.1cm)RV (D)4.4 (1.8-2.4cm) Mitral Valve MitralMitral Stenosis E wavem/sMV Mean GR.4mmHg A wavem/sMV Peak GR.10mmHg E/A ratio0.02D MVAcm2 Aortic Valve Aortic ValveAortic Stenosis V10.96m/Wilbert Mean GR.8mmHg V21.90m/Wilbert Peak GR.15mmHg LVOT Diameter1.9 (1.8-2.4cm)Doppler AVA1.43cm2 Tricuspid Valve TR Velocity3.40m/s [id number] Other Information Quality : Technically LimitedRhythm : Technically limited study due to body habitus. Conclusion lvef 40-45% by visual estiamte low normal function postop septum hypokinetic akinetic apex mild LVH normal RV function left atrium enlarged no severe valve abnormaliites noted severe tricuspid valve calcification noted
[2024-12-29] MEDS: FUROSEMIDE 20 MG TAB PO SCH (09:05)
[2024-12-29] MEDS: ASPirin 81 mg TAB PO SCH (09:05)
[2024-12-29] MEDS ORDERED: ISOS20TA5 PO (13:55)
[2024-12-29] MEDS ORDERED: RANO500T3 PO (13:55)
--- NOTE | 2024-12-29 13:56 | DVHDS2 ---
Discharge Summary Date of Admission Dec 27, 2024 at 23:15 Date of Discharge: Dec 29, 2024 Labs/Diagnostic Data: Laboratory Results Test 12/29/24 11:02 12/29/24 05:55 12/28/24 11:00 12/28/24 02:42 POC Glucose 256 mg/dl (70-106) Sodium Level 138 mmol/L (136-145) Potassium Level 4.4 mmol/L (3.5-5.1) Chloride Level 104 mmol/L (98-107) Carbon Dioxide Level 23 mmol/L (20-31) Anion Gap 11 (5-15) Blood Urea Nitrogen 20 mg/dL (9-23) Creatinine 1.23 mg/dL (0.700-1.30) Glomerular Filtration Rate Calc 61 mL/min (>90) BUN/Creatinine Ratio 16.3 (10.0-20.0) Serum Glucose 192 mg/dL (74-106) Calcium Level 9.6 mg/dL (8.7-10.4) Magnesium Level 2.1 mg/dL (1.6-2.6) White Blood Count 14.4 10^3/uL (4.4-10.8) Red Blood Count 4.81 10^6/uL (4.5-5.90) Hemoglobin 13.1 g/dL (13.5-17.5) Hematocrit 39.8 % (41.0-53.0) Mean Corpuscular Volume 82.6 fL (80.0-100.0) Mean Corpuscular Hemoglobin 27.1 pg (28.0-32.0) Mean Corpuscular Hemoglobin Concent 32.8 g/dL (32.0-36.0) Red Cell Distribution Width 16.6 % (11.8-14.3) Platelet Count 268 10^3/uL (140-450) Mean Platelet Volume 7.7 fL (6.9-10.8) Neutrophils (%) (Auto) 78.5 % (37.0-80.0) Lymphocytes (%) (Auto) 9.8 % (10.0-50.0) Monocytes (%) (Auto) 11.0 % (0.0-12.0) Eosinophils (%) (Auto) 0.2 % (0.0-7.0) Basophils (%) (Auto) 0.5 % (0.0-2.0) Neutrophils # (Auto) 11.3 10 ^3/uL (1.6-8.6) Lymphocytes # (Auto) 1.4 10 ^3/uL (0.4-5.4) Monocytes # (Auto) 1.6 10 ^3/uL (0-1.3) Eosinophils # (Auto) 0 10 ^3/uL (0-0.8) Basophils # (Auto) 0.1 10 ^3/uL (0-0.2) Nucleated Red Blood Cells 0.0 % Total Bilirubin 0.6 mg/dL (0.2-1.0) Aspartate Amino Transferase (AST) 36 U/L (13-40) Alanine Aminotransferase (ALT) 36 U/L (7-40) Alkaline Phosphatase 82 U/L (46-116) Total Protein 6.7 g/dL (5.7-8.2) Albumin 4.2 g/dL (3.2-4.8) Troponin I High Sensitivity 260 ng/L (</=54) Beta-Hydroxybutyric Acid 0.386 mmol/L (< 0.4) Test 12/27/24 23:57 12/27/24 23:48 12/27/24 16:26 12/27/24 13:36 Influenza Type A Antigen Negative (Negative) Influenza Type B Antigen Negative (Negative) SARS-CoV-2 Antigen (Rapid) Negative (NEGATIVE) Hemoglobin A1c 10.6 % A1C (<5.7) Lactic Acid Level 2.0 mmol/L (0.4-2.0) B-Type Natriuretic Peptide 909.85 pg/mL (0-100) Other Laboratory Tests 12/29/24 05:55 12/28/24 11:00 Brief Hx & Hospital Course: see dictated note Condition at Discharge: Fair Final Diagnosis/Problems List cad Discharge Disposition: Home Discharge Instruct/Medications Diet: Cardiac 2g Na,low cholest Activity: No Restrictions, As Tolerated Follow Up/Referral: fu with [facility] Medications: resume home meds script to pharmacy Discharge Statement: "Patient was advised to return to the ER or call 911 if any headaches, dizziness, shortness of breath, chest pain, abdominal pain, bleeding, fevers, or worsening of medical condition. Patient was counseled about treatment plan, medications, possible side effects, patientverbalized understanding. All questions were answered to the best of my ability. This discharge took greater then 30 minutes in planning, reviewing documentation, counseling the patient, and discussing with other team members." ASSESSMENT ASSESSMENT Assessment cad Date of Service: Dec 29, 2024 Billing Provider: MAHSA PERDOMO MD Common Visit Codes: [id number]-QUN/OBS DISCH DAY >30min MAHSA PERDOMO MD Dec 29, 2024 13:56
--- NOTE | 2024-12-29 14:42 | DVHDS ---
DATE OF DISCHARGE: 12/29/2024 The patient is a 74-year-old gentleman who was admitted with complaints of chest pain and mild shortness of breath. He has history of previous CABG, COPD, congestive heart failure, hyperlipidemia, and GERD. HOSPITAL COURSE: The patient had troponin levels that were elevated. The patient was seen in Cardiology consult by Dr. Jose. The patient at this time wishes conservative treatment. His BNP was elevated to 909. He had a chest x-ray that showed no acute infiltrate. The patient had echocardiogram done showed ejection fraction of 40%-45%. The patient will now be discharged home to resume his home medications as well as to be on Ranexa 500 mg b.i.d. and isosorbide 20 mg t.i.d. He will follow up with [facility]. FINAL DIAGNOSES: * Coronary artery disease with [id number] myocardial infarction. * History of coronary artery bypass graft. * Chronic obstructive pulmonary disease. * Diabetes mellitus. * Questionable [id number] diastolic heart failure. * Anxiety. * Atrial fibrillation with secondary hypercoagulable state. * Hyperlipidemia. Time spent in discharge planning and review of plan with the patient and nursing was 38 minutes. MD MIGUEL Hilario/ENMA TID: [id number] RECEIPT: [id number]
== END 2024-12-29 17:00 | disposition home or self-care (01) | DRG 280 ==
LOC: EDBD 12:48 → ER 12:48 → OVERFLOW 23:15 → TELE-WESTW 12-28 02:19
PROVIDERS: ADMIT Internal Medicine; ATTEND Internal Medicine
DX: I21.4 Non-ST elevation (NSTEMI) myocardial infarction (principal); I50.33 Acute on chronic diastolic (congestive) heart failure; D68.59 Other primary thrombophilia; J44.1 Chronic obstructive pulmonary disease with (acute) exacerbation; E87.20 Acidosis, unspecified; J45.901 Unspecified asthma with (acute) exacerbation; Z20.822 Contact with and (suspected) exposure to COVID-19; I11.0 Hypertensive heart disease with heart failure; I25.10 Atherosclerotic heart disease of native coronary artery without angina pectoris; K21.9 Gastro-esophageal reflux disease without esophagitis; I48.91 Unspecified atrial fibrillation; E78.5 Hyperlipidemia, unspecified; F41.9 Anxiety disorder, unspecified; I49.3 Ventricular premature depolarization; F32.A Depression, unspecified; Z79.899 Other long term (current) drug therapy; Z88.1 Allergy status to other antibiotic agents; Z88.8 Allergy status to other drugs, medicaments and biological substances; Z83.3 Family history of diabetes mellitus; Z90.49 Acquired absence of other specified parts of digestive tract; Z95.1 Presence of aortocoronary bypass graft; Z79.01 Long term (current) use of anticoagulants
CPT/HCPCS: 36415; 71045; 80048; 80053; 82010; 82962; 83036; 83605; 83735; 83880; 84484; 85025; 87040; 87426; 87804; 93005; 93306; 94640; 96374; G0378; J1815; J1956; Q9956

== ENCOUNTER 2024-12-31 03:13 | Inpatient (IN) | payer OTHER ==
[2024-12-30 04:00] VITALS: PULSE 79; TEMP 99; O2SAT 20
[2024-12-31] VITALS (34 sets, daily range): BP systolic 76–104; BP diastolic 38–62; PULSE 62–78; RESP 12–24; TEMP 97.7–98.2; O2SAT 67–100
[~2024-12-31] VITALS: Ht 177.8 cm; Wt 82.2 kg
[~2024-12-31 03:13] MED LIST changes: -ALBU108A5 IN; -BISO5TAB44 PO; -BUPR-346 PO; -ERGO1CAP23 PO; -FLUT1AER7 INH; -FURO20TA3 PO; +ISOS20TA5 PO; -MIRT-94 PO; -POTA-36 PO; -QUET100T47 PO; +RANO500T3 PO
--- NOTE | 2024-12-31 03:27 | ED.PDOC ---
Altered Mental Status HPI Comments 74-year-old male with PMHx MO x5, DM brought in by EMS presents with a chief complaint of hypoglycemia and ALOC. Per EMS, last known well was before 0100 this morning. woke up to an alert on her phone that patients blood sugar was at 60. Patient is normally A/Ox4 and GCS 15 at baseline, but is now only responding to sternal rub. Per EMS, they have ran on patient multiple times in the past where his sugar is almost 20 and he is more alert than he is now. Patient is a DNR and DNI according to EMS. Patients blood sugar upon arrival was 70. Chief Complaint: ALOC Time Seen by MD: 03:15 Primary Care Provider: PILYK Reviewed Notes: Medications, Allergies Allergies: Coded Allergies: Lisinopril (Verified Allergy, Unknown, 05/23/15) Sulfa Antibiotics (Verified Allergy, Unknown, 03/26/17) Home Meds Active Scripts Ranolazine (Ranolazine ER) 500 Mg Tab, 500 MG PO BID for 30 Days, #60 TAB 2 Refills Prov:MAHSA PERDOMO MD 12/29/24 Isosorbide Dinitrate (Isosorbide Dinitrate) 20 Mg Tab, 20 MG PO TID for 30 Days, #90 TAB 2 Refills Prov:MAHSA PERDOMO MD 12/29/24 Pancreatic Enzymes (Zenpep [id number] Unit) 1 Cap Cap, 1 CAP PO TID, #30 CAP Prov:MATILDA FLORES 12/20/21 Fluticasone-Salmeterol (Wixela Inhub 250-50 Mcg/Dose) 1 Aer Aer, 1 PUFF IN BID, #30 AER Prov:MATILDA FLORES 12/20/21 Reported Medications Insulin Lispro (Humalog Kwikpen) 100 Unit/Ml Inj, UNIT SC UD for 88 Days, #45 PER SLIDING SCALE. 12/29/24 Albuterol Sulfate (Albuterol Sulfate Hfa) 108 Mcg/Act Aer, 2 PUFF INH Q4-6HR PRN for 30 Days, #20.1 12/29/24 Bisoprolol Fumarate (Bisoprolol Fumarate) 10 Mg Tab, 1 TAB PO DAILY for 100 Days, #100 12/29/24 Quetiapine Fumerate (Seroquel) 50 Mg Tab, 1 TAB PO DAILY for 100 Days, #100 12/29/24 Hydrocodone-Acetaminophen (Hydrocodone Bitartrate/AC 5-325 mg) 1 Tab Tab, 1 TAB PO Q4HR PRN for 20 Days, #120 12/28/24 Fluoxetine Hcl (Fluoxetine Hcl) 20 Mg Cap, 20 MG PO DAILY for 30 Days, MG 10/12/22 Pantoprazole Sodium Sesquihydr (Protonix) 40 Mg Tab, 40 MG PO DAILY, #30 TAB 12/19/21 Lamotrigine (Lamotrigine) 100 Mg Tab, 1 TAB PO DAILY for 100 Days, #100 12/19/21 Dabigatran Etexilate Mesylate (Pradaxa) 150 Mg Cap, 150 MG PO BID, CAP 12/19/21 Gabapentin (Gabapentin) 300 Mg Cap, 300 MG PO QPM for 30 Days, MG 12/19/21 Fenofibrate (Fenofibrate) 160 Mg Tab, 1 TAB PO DAILY, #90 TAB 3 Refills 03/26/17 Discontinued Reported Medications Bisoprolol Fumarate (Bisoprolol Fumarate) 5 Mg Tab, 10 MG PO DAILY, TAB 12/19/21 Quetiapine Fumerate (QUETIAPINE FUMARATE) 100 Mg Tab, 100 MG PO TID for 30 Days, MG 03/26/17 Information Source: Emergency Med Personnel Mode of Arrival: EMS Severity: Unresponsive Timing: Hours Duration: Since onset Prehospital treatment: Accucheck (70), IVF Quality: Decreased Alertness, Change in Behavior History of: Diabetes, Hypoglycemia Past Medical History PAST MEDICAL HISTORY: Asthma, CAD, CHF, COPD, Depression, DM, GERD, High Lipids, HTN, MO Surgical History: CABG, Cholecystectomy, PTCA, Tonsillectomy Family History Family History: Family hx of DM Social History Smoker: Non-Smoker Alcohol: Rarely Drugs: Marijuana Lives In: Home Constitutional: denies: chills, diaphoresis, fatigue, fever, malaise, sweats, weakness, others EENTM: denies: blurred vision, double vision, ear bleeding, ear discharge, ear drainage, ear pain, ear ringing, eye pain, eye redness, hearing loss, mouth pain, mouth swelling, nasal discharge, nose bleeding, nose congestion, nose pain, photophobia, tearing, throat pain, throat swelling, voice changes, others Respiratory: denies: cough, hemoptysis, orthopnea, SOB at rest, shortness of breath, SOB with excertion, stridor, wheezing, others Cardiovascular: denies: chest pain, dizzy spells, diaphoresis, Dyspnea on exertion, edema, irregular heart beat, left arm pain, lightheadedness, palpitations, PND, syncope, others Gastrointestinal: denies: abdomen distended, abdominal pain, blood streaked bowels, constipated, diarrhea, dysphagia, difficulty swallowing, hematemesis, melena, nausea, poor appetite, poor fluid intake, rectal bleeding, rectal pain, vomiting, others Genitourinary: denies: burning, dysuria, flank pain, frequency, hematuria, incontinence, penile discharge, penile sore, pain, testicle pain, testicle swelling, urgency, others Neurological: denies: dizziness, fainting, headache, left sided numbness, left sided weakness, numbness, paresthesia, pre-existing deficit, right sided numbness, right sided weakness, seizure, speech problems, tingling, tremors, weakness, others Musculoskeletal: denies: back pain, gout, joint pain, joint swelling, muscle pain, muscle stiffness, neck pain, others Integumetry: denies: bruises, change in color, change in hair/nails, dryness, laceration, lesions, lumps, rash, wounds, others Allergic/Immunocompromised: denies: Difficulty Healing, Frequent Infections, Hives, Itching, others Hematologic/Lymphatic: denies: anemia, blood clots, easy bleeding, easy bruising, swollen glands, others Endocrine: denies: excessive hunger, excessive sweating, excessive thirst, excessive urination, flushing, intolerance to cold, intolerance to heat, unexplained weight gain, unexplained weight loss, others Psychiatric: denies: anxiety, bipolar disorder, depression, hopeless, panic disorder, schizophrenia, sleepless, suicidal, others Unable to Obtain due to: Altered Mental Status All Other Systems: Reviewed and Negative Physical Exam General Appearance: No Apparent Distress, Normal HEENT: Normal ENT Inspection, Pharynx Normal, TMs Normal Neck: Full Range of Motion, Non-Tender, Normal, Normal Inspection Respiratory: Chest Non-Tender, Lungs Clear, No Accessory Muscle Use, No Respiratory Distress, Normal Breath Sounds Cardiovascular: No Edema, No JVD, No Murmur, No Gallop, Normal Peripheral Pulses, Regular Rate/Rhythm Breast Exam: Deferred Gastrointestinal: No Organomegaly, Non Tender, No Pulsatile Mass, Normal Bowel Sounds, Soft Genitalia: Deferred Pelvic: Deferred Rectal: Deferred Extremities: No calf tenderness, Normal capillary refill, Normal inspection, Normal range of motion, Non-tender, No pedal edema Musculoskeletal : Apperance: Normal Neurologic: Disoriented, Other (lethargic, arousable to vigorous stimuli) Cerebellar Function: NOT DONE Reflexes: NOT DONE Skin: Dry, Normal Color, Warm Lymphatic: No Adenopathy EKG EKG : Cardiac Rhythm: NSR Comments NSR, 75bpm, low voltage, abnormal R wave progression, nonspecific repol abn, no STEMI Was a procedure done? Was a procedure done?: No Differential Diagnosis (ALOC) Differential Diagnosis: Dehydration, Hypoglycemia, DKA, Encephalopathy, Meningitis, Sepsis, Hypoxemia, Drug Overdose, ETOH Intoxication, Heart Failure, Renal Failure X-Ray, Labs, Meds, VS Vital Signs Date Time Temp Pulse Resp B/P (MAP) Pulse Ox O2 Delivery O2 Flow Rate FiO2 12/31/24 04:00 66 12/31/24 03:45 97.3 73 14 99/63 (75) 96 97.3 12/31/24 03:45 73 14 95 Nasal Cannula* 2 28 12/31/24 03:21 97.3 73 22 75/49 (58) 93 97.3 Lab Test 12/31/24 03:36 Range/Units White Blood Count 11.8 H 4.4-10.8 10^3/uL Red Blood Count 4.94 4.5-5.90 10^6/uL Hemoglobin 13.4 L 13.5-17.5 g/dL Hematocrit 41.7 41.0-53.0 % Mean Corpuscular Volume 84.5 80.0-100.0 fL Mean Corpuscular Hemoglobin 27.1 L 28.0-32.0 pg Mean Corpuscular Hemoglobin Concent 32.1 32.0-36.0 g/dL Red Cell Distribution Width 17.1 H 11.8-14.3 % Platelet Count 271 140-450 10^3/uL Mean Platelet Volume 7.5 6.9-10.8 fL Neutrophils (%) (Auto) 68.0 37.0-80.0 % Lymphocytes (%) (Auto) 16.8 10.0-50.0 % Monocytes (%) (Auto) 11.6 0.0-12.0 % Eosinophils (%) (Auto) 2.8 0.0-7.0 % Basophils (%) (Auto) 0.8 0.0-2.0 % Neutrophils # (Auto) 8.0 1.6-8.6 10 ^3/uL Lymphocytes # (Auto) 2.0 0.4-5.4 10 ^3/uL Monocytes # (Auto) 1.4 H 0-1.3 10 ^3/uL Eosinophils # (Auto) 0.3 0-0.8 10 ^3/uL Basophils # (Auto) 0.1 0-0.2 10 ^3/uL Nucleated Red Blood Cells 0.0 % Sodium Level 134 L 136-145 mmol/L Potassium Level 4.1 3.5-5.1 mmol/L Chloride Level 102 98-107 mmol/L Carbon Dioxide Level 23 20-31 mmol/L Anion Gap 9 5-15 Blood Urea Nitrogen 38 #H 9-23 mg/dL Creatinine 2.73 H 0.700-1.30 mg/dL Glomerular Filtration Rate Calc 24 >90 mL/min BUN/Creatinine Ratio 13.9 10.0-20.0 Serum Glucose 188 H 74-106 mg/dL Lactic Acid Level 2.9 *H 0.4-2.0 mmol/L Calcium Level 9.7 8.7-10.4 mg/dL Magnesium Level 2.5 1.6-2.6 mg/dL Total Bilirubin 0.3 0.2-1.0 mg/dL Aspartate Amino Transferase (AST) 281 H 13-40 U/L Alanine Aminotransferase (ALT) 92 H 7-40 U/L Alkaline Phosphatase 100 46-116 U/L Troponin I High Sensitivity 65565 *H </=54 ng/L Total Protein 6.8 5.7-8.2 g/dL Albumin 4.2 3.2-4.8 g/dL Plasma/Serum Blood Alcohol Pending Time of 1ST Reevaluation: 03:45 Reevaluation 1ST: Unchanged Time of 2ND Reevaluation: 04:26 Reevaluation 2ND: Unchanged Patient Education/Counseling: Pt Unresponsive Family Education/Counseling: No Family Present Sepsis focused exam: focus exam completed (In the initial resuscitation at [facility] 30 mL/kg of IV crystalloid fluid was NOT given within the first 3 hr due to concerns of fluid overload), time: (0400) Sepsis Sepsis Reasesment Focused Exam Sepsis focused exam: focus exam completed (In the initial resuscitation at least 30 mL/kg of IV crystalloid fluid was NOT given within the first 3 hr due to concerns of fluid overload), time: (0400) Departure 1 Departure Time of Disposition: 04:26 Impression: Primary Impression: Altered mental status Additional Impressions: Dehydration Metabolic encephalopathy Acute coronary syndrome Disposition: ADMITTED INPATIENT Condition: Guarded Discharged With: Self, Spouse Comments Altered Mental Status in 74-year-old Male with Elevated Troponin Chief Complaint: Altered mental status History of Present Illness: 74-year-old male with a history of coronary artery disease and prior myocardial infarctions was brought to the ED by ambulance after being found somnolent and difficult to arouse by his this morning. EMS initially suspected hypoglycemia, but blood glucose was 70. Administration of D50 did not improve his mental status. Upon arrival to the ED, patient remained somnolent but was arousable to vigorous stimulation. Initial workup revealed significantly elevated troponin levels, acute kidney injury, and elevated lactic acid. Review of Systems: Limited due to patient's mental status Neurologic: Somnolent, arousable to vigorous stimulation Otherwise unable to obtain due to patient's condition Medications: Not obtained due to patient's mental status Allergies: Unable to obtain due to patient's mental status Past Medical History: 1. Coronary artery disease 2. Multiple prior myocardial infarctions Social History: Lives with Code Status: DNR/DNI per Lab Results: WBC: 12, 000 (Elevated) Hemoglobin: 13 Hematocrit: 41 Platelets: 271 Creatinine: 2.73 (Elevated) BUN: 38 (Elevated) Glucose: 188 Lactic acid: 2.9 (Elevated) Troponin: 45, 620 (Significantly elevated) Imaging and Other Relevant Results: EKG: Normal sinus rhythm with nonspecific repolarization abnormality. No STEMI criteria met. Medical Decision Making: Summary Statement: 74-year-old male with history of CAD presenting with altered mental status and significantly elevated troponin requiring immediate intervention and admission. Problem List: 1. Altered mental status 2. Acute NSTEMI 3. Acute kidney injury 4. Elevated lactic acid Differential Diagnosis: 1. Non-ST elevation myocardial infarction 2. Sepsis 3. Metabolic encephalopathy 4. Acute kidney injury ED Course: Patient received IV fluid resuscitation and was started on IV Zosyn. Heparin drip initiated for elevated troponin. Cardiology consulted and reviewing case. Decision made to admit for further management. Assessment and Plan: 1. Altered Mental Status/NSTEMI: - Admit to Cardiology service - Continue heparin drip - Serial troponin monitoring - Cardiology to guide further management 2. Acute Kidney Injury: - IV fluid resuscitation - Monitor urine output - Serial creatinine checks 3. Possible Sepsis: - Continue broad-spectrum antibiotics (Zosyn) - Monitor response to treatment - Blood cultures pending 4. Disposition: - Admit to hospital - DNR/DNI status confirmed with Billing Information: ICD-10: R41.82 - Altered mental status, unspecified ICD-10: I21.4 - Non-ST elevation myocardial infarction ICD-10: N17.9 - Acute kidney failure, unspecified ICD-10: A41.9 - Sepsis, unspecified organism Critical Care Note Critical Care Time?: Yes (35 min-critical care time only) Critical care comment: Total critical care time: Approximately 36 minutes Due to a high probability of clinically significant, life threatening deterioration, the patient required my highest level of preparedness to intervene emergently and I personally spent this critical care time directly and personally managing the patient. This critical care time included obtaining a history; examining the patient; pulse oximetry; ordering and review of studies; arranging urgent treatment with development of a management plan; evaluation of patient's response to treatment; frequent reassessment; and, discussions with other providers. This critical care time was performed to assess and manage the high probability of imminent, life-threatening deterioration that could result in multi-organ failure. It was exclusive of separately billable procedures and treating other patients. Stability Stability form required: No Heart Score Heart Score: Heart Score Response (Comments) Value History Slightly Suspicious 0 EKG Normal 0 Age >65 2 Risk Factors 1 or 2 risk factors 1 Troponin Normal limit 0 Total 3 I personally scribed for BERNIE DORSEY MD ([email or web address]) on 12/31/24 at 03:27. Electronically submitted by Shaun Bryant ([email or web address]). BERNIE DORSEY MD Dec 31, 2024 03:27
[2024-12-31 03:57] LABS: Basophils # (auto) 0.1 10 ^3/uL (0-0.2); Hemoglobin 13.4 g/dL (13.5-17.5)
[2024-12-31 03:59] LABS: Basophils % (auto) 0.8 % (0.0-2.0); Eosinophils # (auto) 0.3 10 ^3/uL (0-0.8); Eosinophils % (auto) 2.8 % (0.0-7.0); Hematocrit 41.7 % (41.0-53.0); Lymphocytes % (auto) 16.8 % (10.0-50.0); Mean Corpuscular Hemoglobin 27.1 pg (28.0-32.0); Mean Corpuscular Hgb Conc. 32.1 g/dL (32.0-36.0); Mean Corpuscular Volume 84.5 fL (80.0-100.0); Monocytes # (auto) 1.4 10 ^3/uL (0-1.3); Monocytes % (auto) 11.6 % (0.0-12.0); Platelet Count (auto) 271 10^3/uL (140-450); Red Blood Cells 4.94 10^6/uL (4.5-5.90); Red Cell Distribution Width 17.1 % (11.8-14.3); White Blood Cell 11.8 10^3/uL (4.4-10.8)
[2024-12-31 04:13] LABS: Alkaline Phosphatase 100 U/L (46-116); Anion Gap 9 (5-15); BUN/Creatinine Ratio 13.9 (10.0-20.0); Calcium 9.7 mg/dL (8.7-10.4); Carbon Dioxide 23 mmol/L (20-31); Chloride 102 mmol/L (98-107); Magnesium 2.5 mg/dL (1.6-2.6); Potassium 4.1 mmol/L (3.5-5.1); Total Protein 6.8 g/dL (5.7-8.2)
[2024-12-31 04:14] LABS: Albumin 4.2 g/dL (3.2-4.8); Bilirubin, Total 0.3 mg/dL (0.2-1.0)
--- NOTE | 2024-12-31 04:14 | DVH ---
EXAM: CT HEAD WITHOUT CONTRAST INDICATION: ALOC TECHNIQUE: CT of the head without intravenous contrast. Coronal and sagittal reformatted images are s ubmitted. Radiation Dose : 1. Head: CT Dose: CTDI volume is 63 mGy. Dose-length product is 1239.8 mGy*cm The dose indicators for CT are the volume Computed Tomography (CT) Dose Index (CTDIvol) and the Dose Length Product (DLP), and are measured in units of mGy and mGy-cm, respectively. These indicators are not patient dose, but values generated from the CT scanner acquisition factors. The report includes radiation exposure data for exposures received during this examination. All CT scans at this medical facility are performed using dose modulation techniques as appropriate to a performed exam including the following: Automated exposure control was utilized; adjustment of the MA and/or KV according to patient size; and use of iterative reconstruction technique. COMPARISON: CT HEAD WITHOUT CONTRAST on DOS: 05/03/23 FINDINGS: There is no evidence of acute intracranial hemorrhage, extra-axial collection, mass effect, midline s hift, herniation or hydrocephalus. The ventricles, sulci and cisterns are age appropriate. The ca-white differentiation is intact. The visualized paranasal sinuses and mastoid air cells are clear. No depressed calvarial fracture. Posterior scalp swelling. IMPRESSION: 1. No evidence of acute intracranial abnormality. 2. Posterior scalp swelling.
--- NOTE | 2024-12-31 04:15 | DVH ---
CHEST RADIOGRAPH Indication: SOB Technique: Single frontal view of the chest was obtained Comparison: XY CHEST PORTABLE on DOS: 12/29/24 FINDINGS: Lines and Tubes: None Lungs: Clear Pleura: No effusion. No pneumothorax. Cardiomediastinal contours: Unremarkable Bones: Status post median sternotomy. No acute osseous abnormality. IMPRESSION: 1. No acute cardiopulmonary disease.
[2024-12-31 04:29] LABS: Lactic Acid w/Reflex 2.9 mmol/L (0.4-2.0)
[2024-12-31 04:30] LABS: Alanine Aminotransferase 92 U/L (7-40); Aspartate Aminotransferase 281 U/L (13-40); Blood Urea Nitrogen 38 mg/dL (9-23); Glucose 188 mg/dL (74-106); Sodium 134 mmol/L (136-145)
[2024-12-31] MEDS: SODIUM CHLORIDE 0.9% 1,000 ML IV ONE (04:43)
[2024-12-31] MEDS: SODIUM CHLORIDE 0.9% 2,200 ML IV ONE (04:43)
[2024-12-31] MEDS ORDERED: HEPARIN SODIUM (PORCINE) 5000 UNITS/ML 1ML VIAL IV ONE (04:45)
[2024-12-31 04:54] LABS: Blood Alcohol < 3.0 mg/dL (<10)
[2024-12-31 05:08] LABS: INR 1.65 (0.9-1.15); Partial Thromboplastin Time 57.8 SEC (24.5-34.5); Prothrombin Time 16.6 sec (9.3-11.8)
--- NOTE | 2024-12-31 06:40 | ECG ---
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
--- NOTE | 2024-12-31 06:40 | ECG ---
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
[2024-12-31] MEDS ORDERED: DEXTROSE (50%) 50ML SYRG IV PRN (07:00)
[2024-12-31] MEDS ORDERED: NITROGLYCERIN 0.4 MG SL TAB SL PRN ×2 (07:00)
[2024-12-31] MEDS ORDERED: ACETAMINOPHEN 325 MG TAB PO PRN (07:00)
[2024-12-31] MEDS ORDERED: MORPHINE SULFATE 4 MG/ML SYR/VIAL IV PRN (07:00)
[2024-12-31] MEDS ORDERED: ONDANSETRON HCL 4 MG/2 ML VIAL IV PRN (07:00)
[2024-12-31] MEDS: PIPERACILLIN-TAZOB 3.375GM 100 ML IV ONE ×2 (07:08→09:03)
[2024-12-31] MEDS ORDERED: FLUO10TA18 PO (07:21)
[2024-12-31] MEDS ORDERED: PANT40T PO ×2 (07:21→13:50)
[2024-12-31] MEDS ORDERED: METH-1181 PO (07:21)
--- NOTE | 2024-12-31 07:42 | DVHHP2 ---
History of Present Illness Reason for Visit: ALOC History of Present Illness Greg Pack is a 74-year-old male with past medical history of CAD, hyperlipidemia, COPD, asthma, CHF, KY x5, CABG in 2017 at [facility], PTCA, cholecystectomy, tonsillectomy, and EGD who presents to the ED with altered level of consciousness. Per EMS reports patient's blood sugar initially was 60 as the had informed them she also states that his blood sugar has been in the 20s before. Patient is currently a DNR and DNI according to EMS and on arrival patient's blood sugar was 70. Patient denies any chest pain, shortness of breath, fever, chills, weakness, dizziness, recent sick contacts, recent trauma or injury, abdominal pain, nausea, vomiting, or diarrhea. Patient also reports that he does not use oxygen at home. Patient reports that he was a former smoker. Patient reports that he uses a front wheel walker with ambulation Cardiovascular: CAD, CHF, KY, hyperipidemia Pulmonary: Asthma, COPD Past Surgical History: Cholecystectomy, CABG, Other (PTCA), Tonsillectomy Family History: Other (Both parents ) Smoke: Quit ALCOHOL: occassional Lives: with Family Domestic Violence: Neg Review of Systems Other No complaints Allergies: Coded Allergies: Lisinopril (Verified Allergy, Unknown, 05/23/15) Sulfa Antibiotics (Verified Allergy, Unknown, 03/26/17) Medications Current Medications Medications Dose Ordered Sig/Nazario Route Start Time Stop Time Status Last Admin Dose Admin Heparin Sodium/ Dextrose 250 ml @ 9 mls/hr Q24H IV 01/01/25 09:00 Piperacillin Sod/ Tazobactam Sod 100 ml @ 25 mls/hr Q8HR IV 12/31/24 07:00 UNV Aspirin 81 mg DAILY PO 12/31/24 10:00 UNV Atorvastatin Calcium 40 mg HS PO 12/31/24 22:00 UNV Morphine Sulfate 2 mg Q30MP PRN IV 12/31/24 07:00 UNV Acetaminophen 650 mg Q6HP PRN PO 12/31/24 07:00 UNV Nitroglycerin 0.4 mg Q5MINP PRN SL 12/31/24 07:00 UNV Ondansetron HCl 4 mg Q4HP PRN IV 12/31/24 07:00 UNV Nitroglycerin 0.4 mg Q5MINP PRN SL 12/31/24 07:00 UNV Morphine Sulfate 2 mg Q30M PRN IV 12/31/24 07:00 UNV Diagnostic Test (Pha) 1 strip Q6HR 12/31/24 12:00 UNV Insulin Human Regular Q6HR SC 12/31/24 12:00 UNV Dextrose 50 ml UD PRN IV 12/31/24 07:00 UNV Exam Vital Signs Vital Signs Date Time Temp Pulse Resp B/P (MAP) Pulse Ox O2 Delivery O2 Flow Rate FiO2 12/31/24 05:00 72 20 98/62 (74) 100 12/31/24 04:00 97.8 97.8 12/31/24 03:45 Nasal Cannula* 2 28 General Appearance: Alert, Oriented X3, Cooperative, No acute distress HEENT: Atraumatic, PERRLA, EOMI, Mucous membr. moist/pink Respiratory: Normal air movement Cardiovascular: Regular rate, Normal S1, Normal S2 Abdominal: Normal bowel sounds, Soft, No tenderness, No hepatospenomegaly, No masses Extremities: No clubbing, No cyanosis, No edema, Normal pulses Skin: No significant lesion Neuro: Normal speech, Strength at 5/5 X4 ext, Normal tone, Sensation intact Psych/Mental Status: Mental status NL, Mood NL Labs/Xrays Labs Test 12/31/24 04:48 12/31/24 03:36 Range/Units Lactic Acid Level 2.6 *H 0.4-2.0 mmol/L Troponin I High Sensitivity > 05948 *H </=54 ng/L White Blood Count 11.8 H 4.4-10.8 10^3/uL Red Blood Count 4.94 4.5-5.90 10^6/uL Hemoglobin 13.4 L 13.5-17.5 g/dL Hematocrit 41.7 41.0-53.0 % Mean Corpuscular Volume 84.5 80.0-100.0 fL Mean Corpuscular Hemoglobin 27.1 L 28.0-32.0 pg Mean Corpuscular Hemoglobin Concent 32.1 32.0-36.0 g/dL Red Cell Distribution Width 17.1 H 11.8-14.3 % Platelet Count 271 140-450 10^3/uL Mean Platelet Volume 7.5 6.9-10.8 fL Neutrophils (%) (Auto) 68.0 37.0-80.0 % Lymphocytes (%) (Auto) 16.8 10.0-50.0 % Monocytes (%) (Auto) 11.6 0.0-12.0 % Eosinophils (%) (Auto) 2.8 0.0-7.0 % Basophils (%) (Auto) 0.8 0.0-2.0 % Neutrophils # (Auto) 8.0 1.6-8.6 10 ^3/uL Lymphocytes # (Auto) 2.0 0.4-5.4 10 ^3/uL Monocytes # (Auto) 1.4 H 0-1.3 10 ^3/uL Eosinophils # (Auto) 0.3 0-0.8 10 ^3/uL Basophils # (Auto) 0.1 0-0.2 10 ^3/uL Nucleated Red Blood Cells 0.0 % Prothrombin Time 16.6 H 9.3-11.8 sec Prothrombin Time INR 1.65 H 0.9-1.15 Activated Partial Thromboplast Time 57.8 H 24.5-34.5 SEC Sodium Level 134 L 136-145 mmol/L Potassium Level 4.1 3.5-5.1 mmol/L Chloride Level 102 98-107 mmol/L Carbon Dioxide Level 23 20-31 mmol/L Anion Gap 9 5-15 Blood Urea Nitrogen 38 #H 9-23 mg/dL Creatinine 2.73 H 0.700-1.30 mg/dL Glomerular Filtration Rate Calc 24 >90 mL/min BUN/Creatinine Ratio 13.9 10.0-20.0 Serum Glucose 188 H 74-106 mg/dL Calcium Level 9.7 8.7-10.4 mg/dL Magnesium Level 2.5 1.6-2.6 mg/dL Total Bilirubin 0.3 0.2-1.0 mg/dL Aspartate Amino Transferase (AST) 281 H 13-40 U/L Alanine Aminotransferase (ALT) 92 H 7-40 U/L Alkaline Phosphatase 100 46-116 U/L Total Protein 6.8 5.7-8.2 g/dL Albumin 4.2 3.2-4.8 g/dL Plasma/Serum Blood Alcohol < 3.0 <10 mg/dL EXAM: CT HEAD WITHOUT CONTRAST INDICATION: ALOC TECHNIQUE: CT of the head without intravenous contrast. Coronal and sagittal reformatted images are submitted. Radiation Dose : 1. Head: CT Dose: CTDI volume is 63 mGy. Dose-length product is 1239.8 mGy*cm The dose indicators for CT are the volume Computed Tomography (CT) Dose Index (CTDIvol) and the Dose Length Product (DLP), and are measured in units of mGy and mGy-cm, respectively. These indicators are not patient dose, but values generated from the CT scanner acquisition factors. The report includes radiation exposure data for exposures received during this examination. All CT scans at this medical facility are performed using dose modulation techniques as appropriate to a performed exam including the following: Automated exposure control was utilized; adjustment of the MA and/or KV according to patient size; and use of iterative reconstruction technique. COMPARISON: CT HEAD WITHOUT CONTRAST on DOS: 05/03/23 FINDINGS: There is no evidence of acute intracranial hemorrhage, extra-axial collection, mass effect, midline shift, herniation or hydrocephalus. The ventricles, sulci and cisterns are age appropriate. The ca-white differentiation is intact. The visualized paranasal sinuses and mastoid air cells are clear. No depressed calvarial fracture. Posterior scalp swelling. IMPRESSION: 1. No evidence of acute intracranial abnormality. 2. Posterior scalp swelling. CHEST RADIOGRAPH Indication: SOB Technique: Single frontal view of the chest was obtained Comparison: XY CHEST PORTABLE on DOS: 12/29/24 FINDINGS: Lines and Tubes: None Lungs: Clear Pleura: No effusion. No pneumothorax. Cardiomediastinal contours: Unremarkable Bones: Status post median sternotomy. No acute osseous abnormality. IMPRESSION: 1. No acute cardiopulmonary disease. Assessment/Plan Assessment/Plan Assessment Acute encephalopathy Diabetes type 2 Hypoglycemia NSTEMI likely type 1 ERIN Leukocytosis rule out sepsis Probable hypovolemic shock Hyponatremia Acute hypoxic respiratory failure Chronic HFmrEF, NYHA class III Transaminitis ETOH use History of paroxysmal AFib on Pradaxa History of CAD History of [place] x5 History of CABG in 2017 at [facility] History of PTCA History of hyperlipidemia History of COPD ex-smoker History of asthma History of CHF History of cholecystectomy History of tonsillectomy and History of EGD Plan Admit to ASHA Supportive oxygen Heparin drip started in ED Sodium bicarb drip Mucomyst p.o. q.12 Hemoglobin A1c ISS and Accu-Cheks Trend troponins EKG noted IV fluids given ED IV antibiotics-Zosyn CT head noted Blood alcohol level Mag level Blood cultures UDS UA Chest x-ray noted Lactic level TSH Echo ordered Duo nebs Strict I&Os Daily weights Cardiology consult Nephrology consult Home medications reconciled Discussed plan of care with patient and nurse DVT prophylaxis-patient on heparin drip PUD prophylaxis-Protonix, continue home medication Counseled patient on cessation of EtOH use Plan discussed with: Patient My Orders Orders - JANNA DENG Hetal [employer] Procedure Category Date Status Time Piperacillin-Tazob PHA 12/31/24 Logged 3.375gm (Zosyn 3.375g 07:00 Admit ADMIT 12/31/24 Transmitted 06:57 Code Status CODE 12/31/24 Transmitted 06:57 Vital Signs VIBHA 12/31/24 In Process 06:57 Unbundler VIBHA 12/31/24 In Process 06:57 Aspirin Tablet PHA 12/31/24 Logged 10:00 Atorvastatin (Lipitor) PHA 12/31/24 Logged 22:00 Morphine Sulfate PHA 12/31/24 Logged Injection 07:00 Acetaminophen Tablet PHA 12/31/24 Logged (Tylenol Tablet) 07:00 Complete Blood Count LAB 01/01/25 Verified 04:00 Basic Metabolic Panel LAB 01/01/25 Verified 04:00 Magnesium LAB 01/01/25 Verified 04:00 Echo 2d Mode Cardiac US 12/31/24 Logged DOP 06:57 Nitroglycerin PHA 12/31/24 Logged Sublingual (Ntrostat 07:00 Ondansetron Hcl PHA 12/31/24 Logged (Zofran) 07:00 Electrocardigram EKG 01/01/25 Logged 04:00 Troponin-I Hs LAB 12/31/24 Logged 06:57 Cardiac VIBHA 12/31/24 In Process Rehabilitation - Outpa Nitroglycerin PHA 12/31/24 Logged Sublingual (Ntrostat 07:00 Morphine Sulfate PHA 12/31/24 Logged Injection 07:00 Notify Of Changes VIBHA 12/31/24 In Process From Base 06:57 Amortization Schedule Clerk For VIBHA 12/31/24 In Process 24 Hours 06:57 Emergency Dysrhythmia VIBHA 12/31/24 In Process Protocol 06:57 Rhythm Strips Once VIBHA 12/31/24 In Process Every Shift 06:57 Oxygen By Nasal RT 12/31/24 Transmitted Cannula 06:57 Glucose Blood PHA 12/31/24 Logged (Accu-Chek Comfort 12:00 Insulin R (Human) PHA 12/31/24 Logged (Insulin R) 12:00 Dextrose 50% Syringe PHA 12/31/24 Logged 07:00 Urinalysis LAB 12/31/24 Logged 06:57 Drug Screen LAB 12/31/24 Logged 06:57 Thyroid Stimulating LAB 12/31/24 Logged Hormone 06:57 Lipid Panel LAB 12/31/24 Logged 06:57 * Cardiology Consult CONS 12/31/24 Transmitted 06:57 Date of Service: Dec 31, 2024 Billing Provider: JANNA DENG Common Visit Codes: [id number] INP/OBS CARE (HIGH) JANNA DENG Dec 31, 2024 07:42
[2024-12-31 07:49] LABS: Triglycerides 72 mg/dL (< 150)
[2024-12-31 07:50] LABS: LDL Cholesterol 60 mg/dL (< 100)
[2024-12-31 07:51] LABS: Cholesterol 121 mg/dL (< 200); HDL Cholesterol 43 mg/dL (40-59)
--- NOTE | 2024-12-31 08:55 | DVHINCON2 ---
Date Seen: Dec 31, 2024 Referring Physician JESSICA Asif Reason for Consultation Elevated troponin History of Present Illness This is a 74-year-old male patient who presents to the emergency room with chief complaint of altered level of consciousness. At the time of assessment, the patient is now alert and oriented X 4 and able to answer all questions appropriately. The patient reports that the last thing he remembers is watching television at home and then waking up in the emergency room. Per ER provider documentation, the patient was brought in by emergency medical services after he was found unresponsive at home by his . The patient's oxygen saturation on the scene was 80% on room air. He was brought to the emergency room for further evaluation. Cardiology has now been consulted for elevated troponin level. Initial twelve lead electrocardiogram reveals normal sinus rhythm with nonspecific ST segment changes to lateral leads (poor quality EKG with baseline wander). [place] 0[address]98hw/L. At the time of assessment, the p atient denies any chest pain. He does mention feeling shortness of breath. Significant past medical history includes severe coronary artery disease status post double-vessel CABG in 2017, multiple PTCA's X 1 IRMA, paroxysmal atrial fibrillation (on Pradaxa), history myocardial infarction, hypertension, dyslipidemia, COPD, type 2 diabetes mellitus, skin melanoma with removal, and h istory of tobacco use. The patient mentions that he is on palliative care due to his age. 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 Past Medical History Past medical history reviewed. No other significant than mentioned above. Past Surgical History Double-vessel CABG in 2017 Cholecystectomy Family History: Child of patient 19 CHILD 19 CHILD Diabetes mellitus G8 MOTHER FH: leukemia 19 CHILD FH: lung cancer G8 FATHER Family History Family history reviewed. Social History Patient has a 60 pack-year history, quit smoking approximately 30 years ago Denies any illicit drug use Denies any alcohol use Allergies: Coded Allergies: Lisinopril (Verified Allergy, Unknown, 05/23/15) Statins (Verified Allergy, Unknown, 12/31/24) Sulfa Antibiotics (Verified Allergy, Unknown, 03/26/17) Home Meds Active Scripts Ranolazine (Ranolazine ER) 500 Mg Tab, 500 MG PO BID for 30 Days, #60 TAB 2 Refills Prov:MAHSA PERDOMO MD 12/29/24 Isosorbide Dinitrate (Isosorbide Dinitrate) 20 Mg Tab, 20 MG PO TID for 30 Days, #90 TAB 2 Refills Prov:MAHSA PERDOMO MD 12/29/24 Pancreatic Enzymes (Zenpep 5000-74062 Unit) 1 Cap Cap, 1 CAP PO TID, #30 CAP Prov:MATILDA FLORES 12/20/21 Fluticasone-Salmeterol (Wixela Inhub 250-50 Mcg/Dose) 1 Aer Aer, 1 PUFF IN BID, #30 AER Prov:MATILDA FLORES 12/20/21 Reported Medications Fluoxetine Hcl (Fluoxetine Hcl) 10 Mg Tab, 1 CAP PO DAILY 12/31/24 Pantoprazole Sodium Sesquihydr (Pantoprazole Sodium) 40 Mg Tab, 1 TAB PO BID 12/31/24 Methocarbamol (Methocarbamol) 500 Mg Tab, 1 TAB PO BID 12/31/24 Insulin Lispro (Humalog Kwikpen) 100 Unit/Ml Inj, UNIT SC UD for 88 Days, #45 PER SLIDING SCALE. 12/29/24 Albuterol Sulfate (Albuterol Sulfate Hfa) 108 Mcg/Act Aer, 2 PUFF INH Q4-6HR PRN for 30 Days, #20.1 12/29/24 Bisoprolol Fumarate (Bisoprolol Fumarate) 10 Mg Tab, 1 TAB PO DAILY for 100 Days, #100 12/29/24 Quetiapine Fumerate (Seroquel) 50 Mg Tab, 1 TAB PO DAILY for 100 Days, #100 12/29/24 Hydrocodone-Acetaminophen (Hydrocodone Bitartrate/AC 5-325 mg) 1 Tab Tab, 1 TAB PO Q4HR PRN for 20 Days, #120 12/28/24 Fluoxetine Hcl (Fluoxetine Hcl) 20 Mg Cap, 20 MG PO DAILY for 30 Days, MG 10/12/22 Pantoprazole Sodium Sesquihydr (Protonix) 40 Mg Tab, 40 MG PO DAILY, #30 TAB 12/19/21 Lamotrigine (Lamotrigine) 100 Mg Tab, 1 TAB PO DAILY for 100 Days, #100 12/19/21 Dabigatran Etexilate Mesylate (Pradaxa) 150 Mg Cap, 150 MG PO BID, CAP 12/19/21 Gabapentin (Gabapentin) 300 Mg Cap, 300 MG PO QPM for 30 Days, MG 12/19/21 Fenofibrate (Fenofibrate) 160 Mg Tab, 1 TAB PO DAILY, #90 TAB 3 Refills 03/26/17 Discontinued Reported Medications Bisoprolol Fumarate (Bisoprolol Fumarate) 5 Mg Tab, 10 MG PO DAILY, TAB 12/19/21 Quetiapine Fumerate (QUETIAPINE FUMARATE) 100 Mg Tab, 100 MG PO TID for 30 Days, MG 03/26/17 Home Meds Home medications reviewed. Current Medications Current Medications Medications (Trade) Dose Ordered Sig/Nazario Route PRN Reason Start Time Stop Time Status Last Admin Heparin Sodium/ Dextrose 250 ml @ 9 mls/hr Q24H IV 01/01/25 09:00 Piperacillin Sod/ Tazobactam Sod 100 ml @ 25 mls/hr Q8HR IV 12/31/24 14:00 Aspirin 81 mg DAILY PO 12/31/24 10:00 Atorvastatin Calcium (Lipitor) 40 mg HS PO 12/31/24 22:00 Morphine Sulfate 2 mg Q30MP PRN IV FOR CHEST PAIN 12/31/24 07:00 12/31/24 07:33 DC Acetaminophen (Tylenol Tablet) 650 mg Q6HP PRN PO MILD PAIN (1-3 PAIN SCALE) 12/31/24 07:00 Nitroglycerin (Ntrostat Sublingual) 0.4 mg Q5MINP PRN SL FOR CHEST PAIN 12/31/24 07:00 12/31/24 07:33 DC Ondansetron HCl (Zofran) 4 mg Q4HP PRN IV NAUSEA / VOMITING 12/31/24 07:00 Nitroglycerin (Ntrostat Sublingual) 0.4 mg Q5MINP PRN SL FOR CHEST PAIN 12/31/24 07:00 Morphine Sulfate 2 mg Q30M PRN IV FOR CHEST PAIN 12/31/24 07:00 Diagnostic Test (Pha) (Accu-Chek Comfort Curve T) 1 strip Q6HR 12/31/24 12:00 Insulin Human Regular (InsuLIN R) Q6HR SC 12/31/24 12:00 Dextrose 50 ml UD PRN IV Blood Sugar LESS THAN 60 12/31/24 07:00 Fluoxetine HCl (PROzac CAPSULE) 20 mg DAILY PO 12/31/24 10:00 Gabapentin (Neurontin Capsule) 300 mg QPM PO 12/31/24 18:00 Lamotrigine (LaMICtal TABLET) 100 mg DAILY PO 12/31/24 10:00 Pantoprazole Sodium (Protonix Tablet) 40 mg DAILY PO 12/31/24 10:00 Ranolazine (Ranexa ER) 500 mg BID PO 12/31/24 10:00 Atenolol (Tenormin Tablet) 100 mg DAILY PO 12/31/24 10:00 Dabigatran (Pradaxa Capsule) 150 mg BID PO 12/31/24 10:00 Patient Own Medication 1 tab DAILY PO 12/31/24 10:00 Isosorbide Dinitrate (Isordil Tablet) 20 mg TID PO 12/31/24 14:00 Patient Own Medication 1 cap TID PO 12/31/24 14:00 Quetiapine Fumarate (SEROquel TABLET) 50 mg DAILY PO 12/31/24 10:00 Review of Systems Constitutional: No symptom reported Ears, Nose, & Throat: No symptom reported Eyes: No symptom reported Neurological: Altered level of mentation Pulmonary/Respiratory: No symptoms reported Cardiovascular: No symptom reported Gastrointestinal: No symptom reported Genitourinary: No symptom reported Musculoskeletal: No symptom reported Skin: No symptom reported Psychiatric: No symptom reported Endocrine: No symptom reported Hematologic/Lymphatic: No symptom reported Vital Signs Vital Signs Date Time Temp Pulse Resp B/P (MAP) Pulse Ox O2 Delivery O2 Flow Rate FiO2 12/31/24 08:02 70 12/31/24 05:00 20 98/62 (74) 100 12/31/24 04:00 97.8 97.8 12/31/24 03:45 Nasal Cannula* 2 28 Physical Exam General Appearance: Cooperative. Well-developed. Well-nourished. No acute distress. Pulmonary/Respiratory: Clear, bilateral breaths sounds. Cardiovascular/Chest: Regular rate and rhythm. Peripheral Pulses: 2+ Radial (R). 2+ Radial (L). 2+ Pedal (R). 2+ Pedal (L) Abdominal Exam: Normal bowel sounds. Ankle Exam: Negative ankle edema Lower extremities: Negative lower extremity edema Neuro/Mental Status: A/OX4, coherent. Thoughts/Psych: Normal thought pattern. Appropriate mood and affect. Good judgment and insight. Appearance: No acute distress. Skin Exam: Normal inspection. Normal color. Warm and dry. Labs/Diagnostic Data Labs Test 12/31/24 07:25 12/31/24 04:48 12/31/24 03:36 Range/Units Troponin I High Sensitivity 62082 *H </=54 ng/L Triglycerides Level 72 < 150 mg/dL Cholesterol Level 121 < 200 mg/dL LDL Cholesterol 60 < 100 mg/dL HDL Cholesterol 43 40-59 mg/dL Thyroid Stimulating Hormone (TSH) 1.53 0.55-4.78 uIU/mL Lactic Acid Level 2.6 *H 0.4-2.0 mmol/L White Blood Count 11.8 H 4.4-10.8 10^3/uL Red Blood Count 4.94 4.5-5.90 10^6/uL Hemoglobin 13.4 L 13.5-17.5 g/dL Hematocrit 41.7 41.0-53.0 % Mean Corpuscular Volume 84.5 80.0-100.0 fL Mean Corpuscular Hemoglobin 27.1 L 28.0-32.0 pg Mean Corpuscular Hemoglobin Concent 32.1 32.0-36.0 g/dL Red Cell Distribution Width 17.1 H 11.8-14.3 % Platelet Count 271 140-450 10^3/uL Mean Platelet Volume 7.5 6.9-10.8 fL Neutrophils (%) (Auto) 68.0 37.0-80.0 % Lymphocytes (%) (Auto) 16.8 10.0-50.0 % Monocytes (%) (Auto) 11.6 0.0-12.0 % Eosinophils (%) (Auto) 2.8 0.0-7.0 % Basophils (%) (Auto) 0.8 0.0-2.0 % Neutrophils # (Auto) 8.0 1.6-8.6 10 ^3/uL Lymphocytes # (Auto) 2.0 0.4-5.4 10 ^3/uL Monocytes # (Auto) 1.4 H 0-1.3 10 ^3/uL Eosinophils # (Auto) 0.3 0-0.8 10 ^3/uL Basophils # (Auto) 0.1 0-0.2 10 ^3/uL Nucleated Red Blood Cells 0.0 % Prothrombin Time 16.6 H 9.3-11.8 sec Prothrombin Time INR 1.65 H 0.9-1.15 Activated Partial Thromboplast Time 57.8 H 24.5-34.5 SEC Sodium Level 134 L 136-145 mmol/L Potassium Level 4.1 3.5-5.1 mmol/L Chloride Level 102 98-107 mmol/L Carbon Dioxide Level 23 20-31 mmol/L Anion Gap 9 5-15 Blood Urea Nitrogen 38 #H 9-23 mg/dL Creatinine 2.73 H 0.700-1.30 mg/dL Glomerular Filtration Rate Calc 24 >90 mL/min BUN/Creatinine Ratio 13.9 10.0-20.0 Serum Glucose 188 H 74-106 mg/dL Calcium Level 9.7 8.7-10.4 mg/dL Magnesium Level 2.5 1.6-2.6 mg/dL Total Bilirubin 0.3 0.2-1.0 mg/dL Aspartate Amino Transferase (AST) 281 H 13-40 U/L Alanine Aminotransferase (ALT) 92 H 7-40 U/L Alkaline Phosphatase 100 46-116 U/L Total Protein 6.8 5.7-8.2 g/dL Albumin 4.2 3.2-4.8 g/dL Plasma/Serum Blood Alcohol < 3.0 <10 mg/dL Assessment NSTEMI, likely type I Coronary artery disease status post double vessel CABG Chronic HFmrEF, NYHA class III History myocardial infarction Paroxysmal atrial fibrillation (on Pradaxa) Severe tricuspid valve calcification Hypertension Dyslipidemia COPD Type 2 diabetes mellitus Transaminitis Plan/Recommendation We will continue with the following plan/recommendations (Dr. Bell): Case reviewed and discussed with . Transthoracic echocardiogram from 12/28/24 reveals EF 40-45% with hypokinetic akinetic apex and severe tricuspid valve calcification. Given the patient's clinical presentation, severely elevated troponin level, and abnormal twelve lead electrocardiogram, highly suspect NSTEMI type 1. Patient may benefit from coronary angiogram with left heart catheterization. The procedure was discussed with the patient in full detail including risks and benefits. Risks include but are not limited to bleeding, contrast-induced nephropathy, stroke, and even . The patient understands and is agreeable to undergo the procedure. At the time of assessment the patient is DNR/DNI as well as comfort measures. The patient denies any end- stage diseases, end of life, or terminal illnesses. The patient states that he has been on palliative care for several years given his age and previous medical history. The patient reports he is willing to rescind his DNR/DNI and comfort measures status for recommended coronary angiogram. The patient is also noted to have an elevated creatinine level at 2.73 (previous level 1.23 on 12/29/24). Explained to the patient the risk for contrast induced nephropathy at this time given his elevated creatinine level. The patient agrees that he would like to hold off on coronary angiogram until kidney function has improved. We will plan for coronary angiogram with optimal kidney function. We will initiate gentle IV fluid hydration. In the meantime, continue with heparin drip, single antiplatelet therapy, and lipid-lowering agent. Continue with guideline directed medical therapy for CHF as renal function permits. Continue with close cardiac surveillance notify cardiology team immediately for any ECG changes or if patient starts experiencing any chest pain. Thank you for allowing us to c are for this patient. Please call with any questions or concerns. Critical care time spent: 44 minutes This medical document was created using an electronic medical record system with voice recognition software and computerized dictation system. Although this document has been carefully reviewed, there might still be some phonetic and typographical errors. Occasional wrong-word or ``sound-alike substitutions may have occurred due to the inherent limitations of voice recognition software. These areas are purely typographical due to imperfections of the software programs and do not reflect any compromise in the patient's medical care. Please read the chart carefully and recognize, using context, where these substitutions have occurred. Plan discussed with: Patient NYHA Physical activity limitations: Class3(Marked) ordinary (activity causes symtoms) Date of Service: Dec 31, 2024 Billing Provider: CARLA CARO Cardiology Common Codes: [id number] INP/OBS CARE (High) Cardiology Consultation Codes: [id number] CONSULT <45MIN CARLA CARO Dec 31, 2024 08:55
[2024-12-31] MEDS: HEPARIN DRIP/D5W 100UNITS/ML 250 ML IV SCH ×3 (09:43→23:45)
[2024-12-31] MEDS ORDERED: DABIGATRAN 75 MG CAP PO SCH (10:00)
[2024-12-31] MEDS: ALBUTEROL SULF 2.5 MG/0.5ML(0.5%) NEB SOLN NEB SCH (10:06)
[2024-12-31] MEDS: IPRATROPIUM BROM 0.5 MG/2.5ML INH SOL NEB SCH (10:06)
[2024-12-31] MEDS: FLUoxetine HCL 20 MG CAP PO SCH (11:00)
[2024-12-31] MEDS: QUEtiapine FUMARATE 25 MG TAB PO SCH (11:00)
[2024-12-31] MEDS: lamoTRIgine 100 MG TAB PO SCH (11:00)
[2024-12-31] MEDS: RANOLAZINE ER 500 MG TAB PO SCH (11:00)
[2024-12-31] MEDS: ATENOLOL 25 MG TAB PO SCH (11:01)
[2024-12-31] MEDS: PANTOPRAZOLE 40 MG TAB PO SCH (11:01)
[2024-12-31] MEDS: ASPirin 81 mg TAB PO SCH (11:02)
[2024-12-31] MEDS: ACETYLCYSTEINE ORAL for CIN 20%(200MG/ML) 4ML PO SCH (11:05)
[2024-12-31] MEDS: Fenofibrate 160MG TABLETS PO SCH (11:06)
[2024-12-31] MEDS: SODIUM BICARB 50mEq/50ml Vial 50 ML in SOD CHL 0.45% 1,000 ML IV SCH (12:22)
[2024-12-31] MEDS: ACCU-CHEK COMFORT CURVE STRIP VI SCH (13:01)
[2024-12-31] MEDS: InsuLIN REG 1unit/0.01ml Soln (100units/ml) SC SCH (13:02)
[2024-12-31] MEDS ORDERED: FLUT1AER5 IN (13:50)
[2024-12-31] MEDS ORDERED: ONDA-155 PO (13:50)
[2024-12-31] MEDS ORDERED: TIOT18CA3 IN (13:50)
[2024-12-31] MEDS: PIPERACILLIN-TAZOB 3.375GM 100 ML IV SCH (14:00)
[2024-12-31 15:09] LABS: Urine Bacteria None Seen /hpf (None Seen)
[2024-12-31 15:24] LABS: Urine Blood Negative /uL (Negative); Urine Clarity Clear (Clear); Urine Color Yellow (Yellow); Urine Hyaline Cast FEW /lpf (0 - 2); Urine Protein, UAD TRACE (Negative); Urine Specific Gravity 1.028 (1.001-1.035); Urine Squamous Epithelial Cell None Seen /hpf (<5); Urine Urobilinogen Normal (Negative); Urine WBC 2 /HPF (0-3)
[2024-12-31 15:32] LABS: Amphetamine Screen, Urine Neg (NEGATIVE); Phencyclidine Screen, Urine Neg (NEGATIVE)
[2024-12-31 15:35] LABS: Barbiturate Scree,Urine Neg (NEGATIVE); Benzodiazephine Screen, Urine Neg (NEGATIVE); Cannabinoid Screen, Urine Neg (NEGATIVE); Cocaine Screen, Urine Neg (NEGATIVE); Opiate Scree,Urine Pos (NEGATIVE)
[2024-12-31 15:49] LABS: INR 1.37 (0.9-1.15); Prothrombin Time 14.1 sec (9.3-11.8)
[2024-12-31 15:53] LABS: Partial Thromboplastin Time 77.2 SEC (24.5-34.5)
[2024-12-31] MEDS: ISOSORBIDE DINITRATE 10 MG TAB PO SCH (15:53)
--- NOTE | 2024-12-31 16:10 | CONS ---
Pharmacy Clinical Information: BOLUS NO TEMPLATE: SPOKE TO JUANJO RIOS REGARDING HEPARIN DOSE CHANGE CURRENT DOSE: 900 UNITS/HR CURRENT APTT: 77.2 ON 12/31/24 @1506 DECREASE (NEW DOSE): 700 UNITS/HR DATE AND TIME OF NEW STARTED: 12/31/24 @1600 NEXT APTT: 12/31/24 @2200 JUANJO RIOS READ BACK NEW DOSE: 700 UNITS/HR SIVA MEJIA PHARMACIST Dec 31, 2024 16:10
[2024-12-31] MEDS: PANCREATIC ENZYMES PO SCH (16:34)
[2024-12-31] MEDS: GABAPENTIN 300 MG CAP PO SCH (18:26)
[2024-12-31] MEDS ORDERED: ATORVASTATIN 20 MG TAB PO SCH (22:00)
[2024-12-31] MEDS: BUDESONIDE (INHALATION) 0.5 MG/2 ML NEB NEB SCH (22:07)
[2024-12-31 23:07] LABS: INR 1.29 (0.9-1.15); Prothrombin Time 13.3 sec (9.3-11.8)
[2025-01-01] VITALS (49 sets, daily range): BP systolic 28–184; BP diastolic 13–94; PULSE 36–92; RESP 13–29; TEMP 97.7–99; O2SAT 72–100
[2025-01-01] MEDS: IPRATROPIUM BROM 0.5 MG/2.5ML INH SOL NEB PRN (03:07)
[2025-01-01] MEDS: ALBUTEROL SULF 2.5 MG/0.5ML(0.5%) NEB SOLN NEB PRN (03:08)
[2025-01-01] MEDS: ATROPINE SULFATE 1 MG/1 ML VIAL ONE (03:27)
[2025-01-01] MEDS: ATROPINE SULF 1 MG/10ml SYR IV ONE (03:28)
[2025-01-01] MEDS: DOPamine 1600MCG/ML D5W 250 ML IV ONE (03:29)
[2025-01-01] MEDS: DOPamine 1600MCG/ML D5W 250 ML IV SCH (03:30)
[2025-01-01] MEDS: EPINEPHrine HCL 250 ML IV ONE ×2 (03:47→03:48)
[2025-01-01] MEDS: NOREPINEPHRINE 8 MG/250ML KIT 250 ML IV ONE (03:50)
[2025-01-01] MEDS: EPINEPHrine HCL 250 ML IV SCH (03:52)
[2025-01-01] MEDS: NOREPINEPHRINE 8 MG/250ML KIT 250 ML IV SCH (03:58)
[2025-01-01] MEDS: GLUCAGON EMERG KIT 1mg/1ml IV ONE (04:00)
[2025-01-01] MEDS ORDERED: VANCOMYCIN PER PHARMACY 0 MG IV SCH (04:00)
[2025-01-01] MEDS ORDERED: ONDANSETRON HCL 4 MG/2 ML VIAL IV PRN (04:30)
[2025-01-01] MEDS ORDERED: MORPHINE SULFATE 4 MG/ML SYR/VIAL IV PRN (04:30)
[2025-01-01] MEDS: MORPHINE SULFATE INJ 2 MG/ml SYRG IV PRN ×2 (04:38→05:59)
[2025-01-01] MEDS: MORPHINE SULFATE INJ 2 MG/ml SYRG IV ONE (04:40)
--- NOTE | 2025-01-01 04:42 | DVH ---
CHEST RADIOGRAPH Indication: ett Technique: Single frontal view of the chest was obtained Comparison: XY CHEST PORTABLE on DOS: 12/31/24 FINDINGS: Lines and Tubes: The endotracheal tube terminates 8.6 cm above the keyon. Lungs: Right basilar consolidation. Pleura: No effusion. No pneumothorax. Cardiomediastinal contours: Unremarkable Bones: No acute osseous abnormality. Status post median sternotomy. IMPRESSION: 1. Right basilar airspace disease which may reflect atelectasis or pneumonia. 2. Endotracheal tube terminates 8.6 cm above the keyon. Advancement by 3 cm recommended.
[2025-01-01] MEDS: LORazepam 2MG/ML-1ML VIAL IV PRN (04:45)
[2025-01-01] MEDS: GLYCOPYRROLATE 0.2 MG/ML 1ML VIAL IV SCH (04:56)
--- NOTE | 2025-01-01 04:56 | DVHNC2 ---
Intubation Indication: Respiratory Insufficiency, Altered Mental Status, Airway Protection Prep: Preoxygenation Intubation Approach: Orotracheal Informed consent obtained: No (Emergent intubation) Risks/benefits/alt described: No Date of Service: Jan 01, 2025 Billing Provider: MAHSA SALGADO Common Visit Codes: PROCEDURE ONLY Procedure Codes: [id number] MAHSA SALGADO Jan 01, 2025 04:56
[2025-01-01] MEDS: VANCOMYCIN 1GM/200ML PM 250 ML IV SCH (05:00)
--- NOTE | 2025-01-01 07:02 | RESUS ---
[facility] ASSESSSMENT History of Events History of Events: Pt admitted on 12/31/24 for ALOC and elevated troponin. Pt was upgraded to ASHA status on 12/31/24. Per primary RN, pt's heart rate dropped. Gave Atropine 1mg IVP at 0329. Heart rate dropped again and pulses lost; FLEX [facility]ADWICK called. Initial Information Date: Jan 01, 2025 Time: 03:34 Location of Arrest: [facility] Arrest Witnessed: Yes CPR started initial time: :34 CPR started by whom: Hospital Staff Pre-Hospital Care: Pre-Code Care (inpatient) Type of arrest: Cardiac, Respiratory, Adult, Witnessed Spontaneous Respirations: No Pulse Present: No Monitoring: ECG, Pulse Oximetry, Telemetry Crash Cart Opened and Supplies: Yes Airway Ventilation Breathing at Onset: Assisted Oxygen Delivery Method: Ambu-Bag Time of first Assisted Ventila: 03:34 Artificial Ventilation: Bag/Mask Intubation Time: 03:39 Intubation Size: 7.0 cuffed Intubated by: Solorzano Intubation Attempts: 2 Intubated orally: Yes Intubated Nasaly: No Tube secured at: 24 (cm @ lip) Cricoid pressure done: Yes CO2 indicator used: Yes Confirmation: Auscultation, Exhaled CO2 Suctioning (Oral/Tracheal): Yes Comments: 1st attempt @ 0338; unsuccessful 2nd attempt @ 0339 - successful Tube changed @ 0341 Circulation Circulation #1: Time: 03:34 Pulse Rate (adult): 0 Blood Pressure Systolic: 0 Blood Pressure Diastolic: 0 Temperature (Fahrenheit): 99 (F; oral) Circulation #2: Time: 03:37 Pulse Rate (adult): 0 Blood Pressure Systolic: 0 Blood Pressure Diastolic: 0 Circulation Comment: Asystole Circulation #3: Time: 03:39 Pulse Rate (adult): 0 Blood Pressure Systolic: 0 Blood Pressure Diastolic: 0 Circulation Comment: Asystole Circulation #4: Time: 03:42 Pulse Rate (adult): 0 Blood Pressure Systolic: 0 Blood Pressure Diastolic: 0 Circulation Comment: Asystole Circulation #5: Time: 03:45 Pulse Rate (adult): 0 Blood Pressure Systolic: 0 Blood Pressure Diastolic: 0 Circulation Comment: Asystole Circulation #6: Time: 03:46 Pulse Rate (adult): 65 Blood Pressure Systolic: 86 Blood Pressure Diastolic: 40 Circulation Comment: ROSC Procedure - IV Procedure - IV #1: IV Side: Right IV Location: Upper Arm Anterior IV Catheter Type: Saline Lock IV Placed: In Hospital IV Gauge: 20 IV Line Care: Saline Flush Comment IV placed prior to code Procedure - IV #2: IV Side: Right IV Location: Antecubital IV Catheter Type: Saline Lock IV Placed: In Hospital IV Gauge: 20 IV Line Care: Saline Flush Comment IV placed prior to code Medications & Response Medications and Responses #1: Medication Time: 03:35 ADULT Medications Given ADULT: Epinephrine 1 mg Route of Administration: IV Heart Rate: 0 EKG Rhythm: Asystole Blood Pressure Systolic: 0 Blood Pressure Diastolic: 0 Respiratory Rate: 0 Medications and Responses #2: Medication Time: 03:36 ADULT Medications Given ADULT: Sodium Bacarbinate 50 meq Route of Administration: IV Heart Rate: 0 EKG Rhythm: Asystole Blood Pressure Systolic: 0 Blood Pressure Diastolic: 0 Respiratory Rate: 0 Medications and Responses #3: Medication Time: 03:38 ADULT Medications Given ADULT: Epinephrine 1 mg Route of Administration: IV Heart Rate: 0 EKG Rhythm: Asystole Blood Pressure Systolic: 0 Blood Pressure Diastolic: 0 Respiratory Rate: 0 Medications and Responses #4: Medication Time: 03:39 ADULT Medications Given ADULT: Calcium Chloride 10 mL Route of Administration: IV Heart Rate: 0 EKG Rhythm: Asystole Blood Pressure Systolic: 0 Blood Pressure Diastolic: 0 Respiratory Rate: 0 Medications and Responses #5: Medication Time: 03:41 ADULT Medications Given ADULT: Epinephrine 1 mg, Sodium Bacarbinate 50 meq Route of Administration: IV Heart Rate: 0 EKG Rhythm: Asystole Blood Pressure Systolic: 0 Blood Pressure Diastolic: 0 Respiratory Rate: 0 Medications and Responses #6: Medication Time: 03:42 ADULT Medications Given ADULT: Atropine 1 mg, Calcium Chloride 10 mL Route of Administration: IV Heart Rate: 0 EKG Rhythm: Asystole Blood Pressure Systolic: 0 Blood Pressure Diastolic: 0 Respiratory Rate: 0 Medications and Responses #7: Medication Time: 03:45 ADULT Medications Given ADULT: Epinephrine 1 mg Route of Administration: IV Heart Rate: 0 EKG Rhythm: Asystole Blood Pressure Systolic: 0 Blood Pressure Diastolic: 0 Respiratory Rate: 0 Nurses Notes [place] Coma Scale Eye Opening: None (1) [place] Coma Scale Verbal: None (1) [place] Coma Scale Motor: None (1) [place] Total: 3 Pupil Reaction: Sluggish Bedside Blood Glucose: 219 EKG Rhythm: Sinus Rhythm (with PACs; HR 65 @ 0349) Nurses Notes - Comment: 0348 : requesting code status to be changed to chem code 0448 : requested pt to be extubated Time Code Ended Time Code Ended: 03:46 Post Arrest Status: Ventilated Outcome of code: Successful Family notified: Yes Code Team Present: JESSICA Solorzano - Hospitalist; Resident MD [place]; Joseline Rico RN - ICU Charge; Lucía Coelho RN - Manager Pool; Reta Milan RN - Primary RN; Sima Christensen, RT; Micky Rico, RN; Dejon Milan, RN; Love Wiseman, RN; Jojo Fuentes, RT; Annteta Fuentes, CCT Post Resuscitation Neurologica Pupil Size: 3 ROSC Time of ROSC: 03:46 Pt Meets Criteria for Therapeu: Yes Lucía Broderick Jan 01, 2025 07:02
--- NOTE | 2025-01-01 11:11 | DVHPN2 ---
Objective Vitals Vital Signs Date Time Temp Pulse Resp B/P (MAP) Pulse Ox O2 Delivery O2 Flow Rate FiO2 01/01/25 10:27 82 24 135/67 01/01/25 07:02 Ambu-Bag 01/01/25 07:00 86 01/01/25 04:00 100 12/31/24 20:00 2 Intake/Output Intake and Output 01/01/25 07:00 Intake Total 4668 ml Balance 4668 ml Intake Oral 240 ml IV Total 4428 ml Medications Current Medications Medications Dose Ordered Sig/Nazario Route Start Time Stop Time Status Last Admin Dose Admin Lorazepam 1 mg Q1HP PRN IV 01/01/25 04:30 01/01/25 10:22 1 MG Morphine Sulfate 1 mg Q1HP PRN IV 01/01/25 04:45 01/01/25 10:27 1 MG Laboratory Results Laboratory Tests 12/31/24 03:36 Coagulation Test 12/31/24 15:06 12/31/24 21:54 Prothrombin Time 14.1 sec (9.3-11.8) H 13.3 sec (9.3-11.8) H Prothrombin Time INR 1.37 (0.9-1.15) H 1.29 (0.9-1.15) H Activated Partial Thromboplast Time 77.2 SEC (24.5-34.5) *H 40.0 SEC (24.5-34.5) H Urinalysis Test 12/31/24 15:04 Urine Color Yellow (Yellow) Urine Clarity Clear (Clear) Urine pH 5.0 (5.0-9.0) Urine Specific [place] 1.028 (1.001-1.035) Urine Protein Trace (Negative) H Urine Ketones Trace (Negative) Urine Blood Negative /uL (Negative) Urine Nitrite Negative (Negative) Urine Bilirubin Negative (Negative) Urine Urobilinogen Normal mg/dL (Negative) Urine Leukocyte Esterase Negative /uL (Negative) Urine RBC 1 /hpf (0 - 3) Urine Microscopic WBC 2 /HPF (0-3) Urine Squamous Epithelial Cells None seen /hpf (<5) Urine Bacteria None seen /hpf (None Seen) Urine Hyaline Casts Few /lpf (0 - 2) Urine Glucose 4+ mg/dL (Normal) H Microbiology Microbiology Date/Time Source Procedure Growth Status 12/31/24 03:36 Blood Blood Culture - Preliminary NO GROWTH AFTER 24 HOURS OF INCUBATION. Resulted Assessment/Plan My Orders Orders - MARISSA HALL NP Procedure Category Date Status Time * Rubber Stamp Die Inspector CONS 01/01/25 Verified Consult MARISSA HALL NP Jan 01, 2025 11:11
--- NOTE | 2025-01-01 11:26 | DVHDS2 ---
Discharge Summary Date of Admission Dec 31, 2024 at 06:57 Date of Discharge: Jan 01, 2025 Admitting Diagnosis NSTEMI type 1 Labs/Diagnostic Data: Laboratory Results Test 12/31/24 23:57 12/31/24 21:54 12/31/24 15:04 12/31/24 07:25 POC Glucose 244 mg/dl (70-106) Prothrombin Time 13.3 sec (9.3-11.8) Prothrombin Time INR 1.29 (0.9-1.15) Activated Partial Thromboplast Time 40.0 SEC (24.5-34.5) Urine Color Yellow (Yellow) Urine Clarity Clear (Clear) Urine pH 5.0 (5.0-9.0) Urine Specific [place] 1.028 (1.001-1.035) Urine Protein Trace (Negative) Urine Ketones Trace (Negative) Urine Blood Negative /uL (Negative) Urine Nitrite Negative (Negative) Urine Bilirubin Negative (Negative) Urine Urobilinogen Normal mg/dL (Negative) Urine Leukocyte Esterase Negative /uL (Negative) Urine RBC 1 /hpf (0 - 3) Urine Microscopic WBC 2 /HPF (0-3) Urine Squamous Epithelial Cells None seen /hpf (<5) Urine Bacteria None seen /hpf (None Seen) Urine Hyaline Casts Few /lpf (0 - 2) Urine Glucose 4+ mg/dL (Normal) Urine Opiates Screen Pos (NEGATIVE) Urine Fentanyl Screen Neg (NEGATIVE) Urine Barbiturates Screen Neg (NEGATIVE) Urine Phencyclidine Screen Neg (NEGATIVE) Urine Amphetamines Screen Neg (NEGATIVE) Urine Benzodiazepines Screen Neg (NEGATIVE) Urine Cocaine Screen Neg (NEGATIVE) Urine Cannabinoids Screen Neg (NEGATIVE) Troponin I High Sensitivity 99191 ng/L (</=54) Triglycerides Level 72 mg/dL (< 150) Cholesterol Level 121 mg/dL (< 200) LDL Cholesterol 60 mg/dL (< 100) HDL Cholesterol 43 mg/dL (40-59) Thyroid Stimulating Hormone (TSH) 1.53 uIU/mL (0.55-4.78) Test 12/31/24 04:48 12/31/24 03:36 Lactic Acid Level 2.6 mmol/L (0.4-2.0) White Blood Count 11.8 10^3/uL (4.4-10.8) Red Blood Count 4.94 10^6/uL (4.5-5.90) Hemoglobin 13.4 g/dL (13.5-17.5) Hematocrit 41.7 % (41.0-53.0) Mean Corpuscular Volume 84.5 fL (80.0-100.0) Mean Corpuscular Hemoglobin 27.1 pg (28.0-32.0) Mean Corpuscular Hemoglobin Concent 32.1 g/dL (32.0-36.0) Red Cell Distribution Width 17.1 % (11.8-14.3) Platelet Count 271 10^3/uL (140-450) Mean Platelet Volume 7.5 fL (6.9-10.8) Neutrophils (%) (Auto) 68.0 % (37.0-80.0) Lymphocytes (%) (Auto) 16.8 % (10.0-50.0) Monocytes (%) (Auto) 11.6 % (0.0-12.0) Eosinophils (%) (Auto) 2.8 % (0.0-7.0) Basophils (%) (Auto) 0.8 % (0.0-2.0) Neutrophils # (Auto) 8.0 10 ^3/uL (1.6-8.6) Lymphocytes # (Auto) 2.0 10 ^3/uL (0.4-5.4) Monocytes # (Auto) 1.4 10 ^3/uL (0-1.3) Eosinophils # (Auto) 0.3 10 ^3/uL (0-0.8) Basophils # (Auto) 0.1 10 ^3/uL (0-0.2) Nucleated Red Blood Cells 0.0 % Sodium Level 134 mmol/L (136-145) Potassium Level 4.1 mmol/L (3.5-5.1) Chloride Level 102 mmol/L (98-107) Carbon Dioxide Level 23 mmol/L (20-31) Anion Gap 9 (5-15) Blood Urea Nitrogen 38 mg/dL (9-23) Creatinine 2.73 mg/dL (0.700-1.30) Glomerular Filtration Rate Calc 24 mL/min (>90) BUN/Creatinine Ratio 13.9 (10.0-20.0) Serum Glucose 188 mg/dL (74-106) Calcium Level 9.7 mg/dL (8.7-10.4) Magnesium Level 2.5 mg/dL (1.6-2.6) Total Bilirubin 0.3 mg/dL (0.2-1.0) Aspartate Amino Transferase (AST) 281 U/L (13-40) Alanine Aminotransferase (ALT) 92 U/L (7-40) Alkaline Phosphatase 100 U/L (46-116) Total Protein 6.8 g/dL (5.7-8.2) Albumin 4.2 g/dL (3.2-4.8) Plasma/Serum Blood Alcohol < 3.0 mg/dL (<10) Other Laboratory Tests 12/31/24 03:36 Brief Hx & Hospital Course: History of Present Illness Greg Pack is a 74-year-old male with past medical history of CAD, hyperlipidemia, COPD, asthma, CHF, [place] x5, CABG in 2017 at [facility], PTCA, cholecystectomy, tonsillectomy, and EGD who presents to the ED with altered level of consciousness. Per EMS reports patient's blood sugar initially was 60 as the had informed them she also states that his blood sugar has been in the 20s before. Patient is currently a DNR and DNI according to EMS and on arrival patient's blood sugar was 70. Patient denies any chest pain, shortness of breath, fever, chills, weakness, dizziness, recent sick contacts, recent trauma or injury, abdominal pain, nausea, vomiting, or diarrhea. Patient also reports that he does not use oxygen at home. Patient reports that he was a former smoker. Patient reports that he uses a front wheel walker with ambulation Course of hospitalization: Patient had rescinded DNR/DNI with plans for possible left heart catheterization once renal function improved. Patient had asystolic cardiopulmonary arrest this a.m. with patient undergoing endotracheal intubation as well as resuscitative measures which was successful. Family was made aware, bedside which point the made the patient a compassionate extubation with comfort measures only. Long discussion was made by myself with the patient's family were bedside, who requests the patient be discharged home. Hospice consultation has been placed with long term care social worker. Physical examination General: Alert and Oriented x3. No acute distress. Well-nourished. Eyes: EOMI. Anicteric. HENT: Moist mucous membranes. Lungs: Clear to auscultation bilaterally. No accessory muscle use. Cardiovascular: Regular rate and rhythm. No murmur. No JVD. Abdomen: Soft, non-tender and non-distended. No palpable masses. Extremities: No edema. Non-tender. Skin: No rashes or lesions. Warm. Neurologic: No focal neurological deficits. CN II-XII grossly intact, but not individually tested. Psychiatric: Cooperative. Appropriate mood and affect. Total time spent with patient discussing and formulating plan of care: 35 minutes. This medical document was created using an electronic medical record system with [employer] dictation system. Although this document has been carefully reviewed, there may still be some phonetic and typographical errors. These areas are purely typographical due to imperfections of the software programs, and do not reflect any compromise in the patient's medical care. Consults/Reason for consult Cardiology: Acute [place] Condition at Discharge: Fair Final Diagnosis/Problems List NSTEMI type 1 with cardiopulmonary arrest Secondary diagnosis: Acute encephalopathy Diabetes type 2 Hypoglycemia NSTEMI likely type 1 ERIN Leukocytosis rule out sepsis Probable hypovolemic shock Hyponatremia Acute hypoxic respiratory failure Chronic HFmrEF, NYHA class III Transaminitis Discharge Disposition: Hospice - Home Discharge Instruct/Medications Diet: Regular Activity: No Restrictions, As Tolerated Medications: Per hospice provider 36 Discharge Statement: "Patient was advised to return to the ER or call 911 if any headaches, dizziness, shortness of breath, chest pain, abdominal pain, bleeding, fevers, or worsening of medical condition. Patient was counseled about treatment plan, medications, possible side effects, patientverbalized understanding. All questions were answered to the best of my ability. This discharge took greater then 30 minutes in planning, reviewing documentation, counseling the patient, and discussing with other team members." ASSESSMENT ASSESSMENT Assessment NSTEMI type 1 with cardiopulmonary arrest Date of Service: Jan 01, 2025 Billing Provider: MARISSA HALL NP Common Visit Codes: 90427-GWK/OBS DISCH DAY >30min MARISSA HALL NP Jan 01, 2025 11:26
--- NOTE | 2025-01-01 17:19 | DVHPN2 ---
Consult Progress Note Subjective Other Systems: Patient in normal sinus rhythm on residential monitor. Objective vital signs Vital Sign Date Time Temp Pulse Resp B/P (MAP) Pulse Ox O2 Delivery O2 Flow Rate FiO2 01/01/25 16:00 84 01/01/25 15:36 20 126/60 01/01/25 10:00 90 Nasal Cannula* 2 28 01/01/25 07:02 Total Intake and Output 12/31/24 12/31/24 01/01/25 15:00 23:00 07:00 Intake Total 3470 ml 648 ml 550 ml Balance 3470 ml 648 ml 550 ml medications Current Medications Medications Dose Ordered Sig/Nazario Route Start Time Stop Time Status Last Admin Dose Admin Lorazepam 1 mg Q1HP PRN IV 01/01/25 04:30 01/01/25 15:36 1 MG Morphine Sulfate 1 mg Q1HP PRN IV 01/01/25 04:45 01/01/25 15:36 1 MG laboratory and microbiology Laboratory Tests 12/31/24 03:36 Test 12/31/24 03:36 Range/Units Serum Glucose 188 H 74-106 mg/dL Problem List/Assessment/Plan Problem List/Assessment/Plan NSTEMI, likely type I Cardiopulmonary arrest Coronary artery disease status post double vessel CABG Chronic HFmrEF, NYHA class III History myocardial infarction Paroxysmal atrial fibrillation (on Pradaxa) Severe tricuspid valve calcification Hypertension Dyslipidemia COPD Type 2 diabetes mellitus Transaminitis Plan/Recommendation (Dr. Bell): Transthoracic echocardiogram from 12/28/24 reveals EF 40-45% with hypokinetic akinetic apex and severe tricuspid valve calcification. The patient who was initially pending coronary angiogram with left heart catheterization, had an episode of severe bradycardia followed by asystole and then cardiopulmonary arrest this morning. The patient underwent resuscitative measures including endotracheal intubation, ACLS medications and CPR. ROSC was achieved. Subsequently, the patient's opted for a terminal wean. At this time, the patient is now comfort measures only. There is no further inpatient cardiac workup indicated at this time. Cardiology will sign off. Thank you for allowing us to care for this patient. Please call with any questions or concerns. Critical care time spent: 38 minutes. This medical document was created using an electronic medical record system with voice recognition software and computerized dictation system. Although this document has been carefully reviewed, there might still be some phonetic and typographical errors. Occasional wrong-word or ``sound-alike substitutions may have occurred due to the inherent limitations of voice recognition software. These areas are purely typographical due to imperfections of the software programs and do not reflect any compromise in the patient's medical care. Please read the chart carefully and recognize, using context, where these substitutions have occurred. Plan discussed with: Other (Bedside RN) Date of Service: Jan 01, 2025 Billing Provider: CARLA CARO Common Visit Codes: 24825-[id number] CARE 30-74 MIN CARLA CARO Jan 01, 2025 17:19
[2025-01-02] VITALS (11 sets, daily range): BP systolic 132–156; BP diastolic 62–95; PULSE 62–105; RESP 22–29; TEMP 100.2–100.7; O2SAT 89–94
== END 2025-01-02 11:02 | disposition hospice, home (50) | DRG 637 ==
LOC: ER 03:13 → EDBD 03:13 → OVERFLOW 06:57 → DOU IN ICU 18:05
PROVIDERS: ADMIT Nurse Practitioner Acute Care; ATTEND Nurse Practitioner Acute Care
PROC: 0BH17EZ Insertion of Endotracheal Airway into Trachea, Via Natural or Artificial Opening (ICD-10-PCS; principal; 2025-01-01)
PROC: 5A1935Z Respiratory Ventilation, Less than 24 Consecutive Hours (ICD-10-PCS; 2025-01-01)
PROC: 5A12012 Performance of Cardiac Output, Single, Manual (ICD-10-PCS; 2025-01-01)
PROC: 5A0935A Assistance with Respiratory Ventilation, Less than 24 Consecutive Hours, High Flow/Velocity Cannula (ICD-10-PCS; 2025-01-01)
DX: E11.649 Type 2 diabetes mellitus with hypoglycemia without coma (principal); I21.4 Non-ST elevation (NSTEMI) myocardial infarction; J96.01 Acute respiratory failure with hypoxia; R57.1 Hypovolemic shock; I46.9 Cardiac arrest, cause unspecified; J69.0 Pneumonitis due to inhalation of food and vomit; E87.1 Hypo-osmolality and hyponatremia; I50.22 Chronic systolic (congestive) heart failure; G93.40 Encephalopathy, unspecified; N17.9 Acute kidney failure, unspecified; Z66 Do not resuscitate; Z51.5 Encounter for palliative care; K21.9 Gastro-esophageal reflux disease without esophagitis; F32.A Depression, unspecified; E78.5 Hyperlipidemia, unspecified; R74.01 Elevation of levels of liver transaminase levels; I48.0 Paroxysmal atrial fibrillation; I25.10 Atherosclerotic heart disease of native coronary artery without angina pectoris; E86.0 Dehydration; J44.89 Other specified chronic obstructive pulmonary disease; I11.0 Hypertensive heart disease with heart failure; Z88.2 Allergy status to sulfonamides; Z87.891 Personal history of nicotine dependence; Z98.61 Coronary angioplasty status; Z88.8 Allergy status to other drugs, medicaments and biological substances; Z95.1 Presence of aortocoronary bypass graft; Z90.49 Acquired absence of other specified parts of digestive tract; Z83.3 Family history of diabetes mellitus; Z80.6 Family history of leukemia; Z80.1 Family history of malignant neoplasm of trachea, bronchus and lung; Z85.820 Personal history of malignant melanoma of skin; Z79.4 Long term (current) use of insulin; Z79.899 Other long term (current) drug therapy
CPT/HCPCS: 36415; 36600; 70450; 71045; 80053; 80061; 80307; 80320; 81001; 82805; 82962; 83605; 83735; 84443; 84484; 85025; 85610; 85730; 87040; 87081; 92950; 93005; 94002; 94640; 96360; 96361; 99291; G0378; J0171; J0461; J1815; J2543